=== PATIENT | female | born 1960 | race American Indian/Alaskan Native ===

== ENCOUNTER 2018-03-11 13:02 | Inpatient (IN) | payer MEDICARE ==
[2018-03-11] MEDS ORDERED: NACL 0.9% 1000 ML 1,000 ML ONE ×3 (13:22→17:05)
[2018-03-11] MEDS ORDERED: NACL 0.9% 1000 ML IV ONE ×2 (13:37→16:03)
[2018-03-11] MEDS ORDERED: LEVAQUIN 750MG/150ML 750 MG/150 ML BAG IV SCH (14:00)
[2018-03-11] MEDS: TYLENOL PO PRN (14:00)
[2018-03-11] MEDS ORDERED: PROVENTIL IH ONE (14:18)
--- NOTE | 2018-03-11 14:49 | Emergency Department Report ---
HPI - General Chief Complaint: Fever Time Seen by Provider: 03/11/18 13:51 - HPI HPI: patient sent from custodial for fever, g-tube dependent at baseline ambulates with help per custodial. During nh rounds patient was noticed to be shaking, and had a temp of 105. Patient was sent to er for further evaluation. patient is non verbal at baseline. nh states patient was in her usual state of health yesterday. She has a h/o schizophrenia, htn, and seizure d/o, review of her previous charts showed a normal EEG in september. Patient is unable to contribute to history. in ER initial sats were mid 60s, patient was placed in non dasia 10liters and sats went up to mid 90s. ED Past Medical Hx - Past Medical History Previous Medical History?: Yes - Social History Smoking Status: Unknown if ever smoked ED Review of Systems ROS: Stated complaint: FEVER Other details as noted in HPI Physical Exam - Physical Exam Vital Signs: Vital Signs 03/11/18 03/11/18 13:22 14:00 Temperature 105.7 F H Pulse Rate 143 H Respiratory 45 H Rate Blood Pressure 93/45 O2 Sat by Pulse 66 L Oximetry Physical Exam: GENERAL APPEARANCE: in mild distress HEAD: normocephalic. EYES: PERRL, EOMI. Fundi normal, vision is grossly intact. EARS: External auditory canals and tympanic membranes clear, hearing grossly intact. NOSE: No nasal discharge. THROAT: Oral cavity and pharynx normal. No inflammation, swelling, exudate, or lesions. Teeth and gingiva in good general condition. NECK: Neck supple, non-tender without lymphadenopathy, masses or thyromegaly. CARDIAC: tachycardia, perfused. Capillary refill is less than 2 seconds. No carotid bruits. mild jvd bilat LUNGS: dec breath sounds bilat, dec effort, mild rales. ABDOMEN: Positive bowel sounds. Soft, nondistended, nontender. No guarding or rebound. No masses. g-tube area clean MUSKULOSKELETAL: contracted lower ext. neuro- awake, non verbal, moves all ext. ED Course Vital Signs 03/11/18 03/11/18 13:22 14:00 Temperature 105.7 F H Pulse Rate 143 H Respiratory 45 H Rate Blood Pressure 93/45 O2 Sat by Pulse 66 L Oximetry - Reevaluation(s) Reevaluation #1: 03/11/18 16:17 bp 60s/40s, patient unable to conscent so right ijv central line place emergently for central venous access for large volume ressuscitation and poss pressors. - Central Line Placement Right IJ Consent Obtained: emergent situation Time Out Performed: Yes Patient Placed on Monitor/Pulse Ox: Yes Prep: mask, gown, gloves Central Line Prep: Povidone-Iodine 1% Local Anesthesia Used: Lidocaine 1% Amount of Anesthesia Used (mls): 5 Ultrasound Used for Placement: Yes Central Line Lumen Inserted: triple Bloods Obtained for Lab: Yes Central Line Position: good blood return, all ports aspirated, flus, sutured in place with 2-0 Dressing Applied: Tegaderm Post Procedure X-Ray: tip of catheter in good p Patient Tolerated Procedure: well Complications: none ED Medical Decision Making - Lab Data Result diagrams: 03/11/18 14:20 03/11/18 14:20 - Radiology Data Radiology results: report reviewed - Medical Decision Making 20mg of ketamine given x 3 prior to central line placement for sedation due to an anxious, agitated patient. Critical Care Time: Yes Critical care time in (mins) excluding proc time.: 45 Critical care attestation.: If time is entered above; I have spent that time in minutes in the direct care of this critically ill patient, excluding procedure time. ED Disposition Clinical Impression: DKA, type 2, not at goal, Septic shock Sepsis Qualifiers: Sepsis type: sepsis due to unspecified organism Qualified Code(s): A41.9 - Sepsis, unspecified organism Disposition: OP ADMIT IP TO THIS HOSP Is pt being admited?: Yes Does the pt Need Aspirin: No Condition: Stable Instructions: Diabetic Ketoacidosis (ED) Referrals: PRIMARY CARE, [Primary Care Provider] - 3-5 Days
[2018-03-11 14:51] LABS: Calcium 8.7 mg/dL (8.4-10.2)
--- NOTE | 2018-03-11 14:54 | XRay Report ---
FINAL REPORT PROCEDURE: XR CHEST 1V AP TECHNIQUE: Chest radiograph anteroposterior view. CPT 64327 HISTORY: fever COMPARISON: No prior studies are available for comparison. FINDINGS: The heart is not enlarged. Diffuse patchy nodular alveolar densities are scattered throughout both kendy ngs. There is more focal consolidation in the right upper lobe laterally. The density in the right up per lobe laterally is pleural-based and extends over approximately 10 centimeters x 5.2 centimeters. No effusions are seen. No acute bony abnormalities are identified. IMPRESSION: Extensive diffuse infiltrative process seen throughout both lungs. Given the history of fever this ma y represent pneumonia. Abnormal density visualize right upper lobe pleural based. This may represent more focal consolidation. I cannot exclude a mass or loculated effusion. Follow-up chest x-ray recomm ended to ensure these abnormalities resolve..
[2018-03-11] MEDS ORDERED: MOTRIN PO ONE (15:00)
[2018-03-11 15:01] LABS: Hematocrit 32.2 % (30.3-42.9); Mean Corpuscular HGB Conc 31 % (30-34); Mean Corpuscular Volume 74 fl (79-97); Platelet Count 175 K/mm3 (140-440); Red Blood Count 4.36 M/mm3 (3.65-5.03); Red Cell Distribution Width 14.1 % (13.2-15.2)
[2018-03-11] MEDS ORDERED: HumuLIN R IV ONE (15:01)
[2018-03-11] MEDS ORDERED: KETAMINE HCL IV ONE ×2 (15:23→16:00)
[2018-03-11 15:30] LABS: Bilirubin,Urine NEG (Negative); Blood,Urine MOD (Negative); Color,Urine Yellow (Yellow); Mucus,Urine FEW /HPF
[2018-03-11 15:40] LABS: Basophils % (Manual) 0 % (0.0-1.8); Eosinophils % (Manual) 0 % (0.0-4.3); RBC Morphology Normal; Total Cells Counted 100
[2018-03-11] MEDS ORDERED: NACL 0.9% 1000 ML 1,000 ML IV ONE (15:57)
--- NOTE | 2018-03-11 16:02 | History and Physical Report ---
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 Pt is nonverbal and unable to provide history. Pt history taken from ED staff, EMS, and SNF Staff. As per staff, the patient was found to have shaking chills this morning with a temperature of 105.0. EMS was notified and the patient was found to be in distress. Pt transported to [facility] for further care and evaluation. Pt seen and evaluated in ED and found to have Severe Sepsis secondary to indwelling Mccormick Catheter, Acute Respiratory Failure, Acidosis and Encephalopathy. No further history obtainable. Pt admitted to ICU and placed on sepsis protocol. Past History Past Medical History: hypertension, seizures, other (Contracture, Debility, Schizophrenia) Past Surgical History: Other (PEG placement) Social history: . denies: smoking, alcohol abuse, prescription drug abuse Family history: hypertension Medications and Allergies Allergies Allergy/AdvReac Type Severity Reaction Status Date / Time pineapple Allergy Itching Unverified 07/11/17 08:44 Active Meds: Active Medications Acetaminophen (Tylenol) 650 mg PO Q6H PRN PRN Reason: Pain, Mild (1-3) Last Admin: 03/11/18 14:00 Dose: 650 mg Documented by: Levofloxacin/Dextrose (Levaquin 750mg/150ml) 750 mg in 150 mls @ 100 mls/hr IV Q24HR VIKRAM; Protocol Last Admin: 03/11/18 13:58 Dose: 100 mls/hr Documented by: Sodium Chloride (Nacl 0.9% 1000 Ml) 1,000 mls @ 999 mls/hr IV BOLUS ONE Stop: 03/11/18 16:57 Review of Systems ROS unobtainable: due to mental status Exam - Constitutional Vitals: Temp Pulse Resp BP Pulse Ox 102.3 F H 124 H 31 H 92/60 100 03/11/18 15:08 03/11/18 14:46 03/11/18 14:46 03/11/18 14:46 03/11/18 14:53 General appearance: Present: severe distress - EENT Eyes: Present: miosis - Neck Neck: Present: supple, normal ROM - Respiratory Respiratory effort: labored Respiratory: bilateral: diminished, rhonchi - Cardiovascular Rhythm: other (tachycardia) Heart Sounds: Present: S1 & S2. Absent: rub, click - Extremities Extremities: pulses symmetrical, No edema Peripheral Pulses: abnormal (capillary refill greated than 3.5 seconds) - Abdominal General gastrointestinal: Present: soft, non-tender, non-distended, normal bowel sounds Female genitourinary: Present: normal - Integumentary Integumentary: Present: clear, warm, dry, clammy, decreased turgor - Musculoskeletal Musculoskeletal: generalized weakness - Psychiatric Psychiatric: no appropriate mood/affect, no intact judgment & insight, no memory intact - Neurologic Neurologic: no CNII-XII intact, no gait normal Results - Labs CBC & Chem 7: 03/11/18 14:20 03/11/18 14:20 Labs: Abnormal lab results 03/11/18 03/11/18 03/11/18 Range/Units 14:20 14:20 14:20 Hgb 10.0 L (10.1-14.3) gm/dl MCV 74 L (79-97) fl MCH 23 L (28-32) pg Seg Neuts % (Manual) 89.0 H (40.0-70.0) % Lymphocytes % (Manual) 8.0 L (13.4-35.0) % Lymphocytes # (Manual) 0.4 L (1.2-5.4) K/mm3 POC ABG pO2 (80-105) Sodium 160 H (137-145) mmol/L Chloride 118.4 H (98-107) mmol/L BUN 64 H (7-17) mg/dL Creatinine 1.5 H (0.7-1.2) mg/dL Glucose 592 H* (65-100) mg/dL Lactic Acid 7.20 H* (0.7-2.0) mmol/L AST 60 H (5-40) units/L Total Creatine Kinase 1434 H (30-135) units/L Albumin 2.0 L (3.9-5) g/dL Urine WBC (Auto) (0.0-6.0) /HPF 03/11/18 03/11/18 Range/Units 14:50 15:08 Hgb (10.1-14.3) gm/dl MCV (79-97) fl MCH (28-32) pg Seg Neuts % (Manual) (40.0-70.0) % Lymphocytes % (Manual) (13.4-35.0) % Lymphocytes # (Manual) (1.2-5.4) K/mm3 POC ABG pO2 61 L (80-105) Sodium (137-145) mmol/L Chloride (98-107) mmol/L BUN (7-17) mg/dL Creatinine (0.7-1.2) mg/dL Glucose (65-100) mg/dL Lactic Acid (0.7-2.0) mmol/L AST (5-40) units/L Total Creatine Kinase (30-135) units/L Albumin (3.9-5) g/dL Urine WBC (Auto) 7.0 H (0.0-6.0) /HPF Assessment and Plan - Patient Problems (1) Sepsis Current Visit: Yes Status: Acute Qualifiers: Sepsis type: sepsis due to unspecified organism Qualified Code(s): A41.9 - Sepsis, unspecified organism Plan to address problem: Admit to ICU, IV antibiotic therapy, IVF resuscitation, IV pressors to maintain MAP grater than 60, monitor uop q shift, chest x ray, urinalysis, blood cultures, The high probability of a clinically significant, sudden or life threatening deterioration of the [cardiac, renal, neuro, respiratory] system(s) required my full and direct attention, intervention and personal management. The aggregate critical care time was [65] minutes. This time is in addition to time spent performing reported procedures but includes the following: [x] Data Review and interpretation [x] Patient assessment and monitoring of vital signs [x] Documentation [x] Medication orders and management (2) Respiratory failure Current Visit: Yes Status: Acute Qualifiers: Chronicity: acute Respiratory failure complication: hypoxia Qualified Code(s): J96.01 - Acute respiratory failure with hypoxia Plan to address problem: supplemental oxygen, nebulizer therapy, ABG, NIPPV as clinically indicated, (3) UTI (urinary tract infection) due to urinary indwelling catheter Current Visit: Yes Status: Acute Qualifiers: Indwelling urinary catheter type: indwelling urethral catheter Encounter type: initial encounter Qualified Code(s): T83.511A - Infection and inflammatory reaction due to indwelling urethral catheter, initial encounter; N39.0 - Urinary tract infection, site not specified Plan to address problem: IV antibiotic therapy, urinalysis, (4) Encephalopathy Current Visit: Yes Status: Acute Plan to address problem: CT head, neuro checks, seizure precautions, (5) Acidosis Current Visit: Yes Status: Acute Plan to address problem: Treat sepsis, IVF resuscitation therapy, serial lactic acid level (6) Diabetes mellitus Current Visit: Yes Status: Acute Plan to address problem: AD diet, insulin, accu check (7) DVT prophylaxis Current Visit: Yes Status: Acute Plan to address problem: SCD to BLE while in bed.
[2018-03-11] MEDS ORDERED: SODIUM BICARBONATE FEEDTUBE PRN (16:03)
[2018-03-11] MEDS ORDERED: SIMPLE SYRUP FEEDTUBE PRN ×2 (16:03)
[2018-03-11] MEDS ORDERED: PANCREAZE DR 10,500 UNIT FEEDTUBE PRN (16:03)
[2018-03-11] MEDS ORDERED: SODIUM CHLORIDE FLUSH SYRINGE 10 ML IV PRN (16:03)
[2018-03-11] MEDS ORDERED: LEVOPHED DRIP 4 MG/NS 250 ML 4 MG/250 ML BAG IV ONE (16:33)
[2018-03-11] MEDS: LEVOPHED DRIP 4 MG/NS 250 ML 4 MG/250 ML BAG IV SCH (16:41)
[2018-03-11] MEDS: MAXIPIME/NS 2 GM/100 ML 2 GM/100 ML BAG IV SCH (16:57)
--- NOTE | 2018-03-11 17:06 | XRay Report ---
FINAL REPORT PROCEDURE: Chest. TECHNIQUE: Supine AP view. HISTORY: Central line placement. COMPARISON: Chest done earlier today. FINDINGS: The patient is rotated to the right. The heart size is normal. There is bilateral alveolar opacity in both lungs. This could represent pulmonary edema or an unusual pneumonia. There is some hazy pleural based opacity in the upper portion of the right hemithorax. This could represent loculated fluid or possibly a mass. Follow-up imaging is suggested. There is a right internal jugular venous catheter th at terminates in the SVC. The soft tissues and regional skeleton are unremarkable. IMPRESSION: Satisfactory central line placement. No change in the appearance of the lungs.
--- NOTE | 2018-03-11 17:15 | Consultation ---
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 Pt is nonverbal and unable to provide history. Pt history taken from ED staff, EMS, and SNF Staff. As per staff, the patient was found to have shaking chills this morning with a temperature of 105.0. EMS was notified and the patient was found to be in distress. Pt transported to [facility] for further care and evaluation. Pt seen and evaluated in ED and found to have Severe Sepsis secondary to indwelling Mccormick Catheter, Acute Respiratory Failure, Acidosis and Encephalopathy. No further history obtainable. Pt admitted to ICU and placed on sepsis protocol. I have been consulted for critical care management. Patient was unable to give any history. She was seen and examined in the ED. Currently on high flow oxygen via vapotherm. Vitals, labs, medications, chart and imaging were reviewed. Past History Past Medical History: hypertension, seizures, other (Contracture, Debility, Schizophrenia) Past Surgical History: Other (PEG placement) Social history: . denies: smoking, alcohol abuse, prescription drug abuse Family history: hypertension Medications and Allergies Allergies Allergy/AdvReac Type Severity Reaction Status Date / Time pineapple Allergy Itching Unverified 07/11/17 08:44 Active Meds: Active Medications Acetaminophen (Tylenol) 650 mg PO Q6H PRN PRN Reason: Pain, Mild (1-3) Last Admin: 03/11/18 14:00 Dose: 650 mg Documented by: Lipase/Protease/Amylase (Pancrenati Solis 10,500 Unit) 1 each FEEDTUBE PRN PRN PRN Reason: For Clogged Feeding Tube Cefepime HCl (Maxipime/Ns 2 Gm/100 Ml) 2 gm in 100 mls @ 200 mls/hr IV Q12HR VIKRAM; Protocol Last Admin: 03/11/18 16:57 Dose: 200 mls/hr Documented by: Levofloxacin/Dextrose (Levaquin 750mg/150ml) 750 mg in 150 mls @ 100 mls/hr IV Q48HR VIKRAM; Protocol Simple Syrup (Simple Syrup) 15 ml FEEDTUBE PRN PRN PRN Reason: Hypoglycemia Simple Syrup (Simple Syrup) 30 ml FEEDTUBE PRN PRN PRN Reason: Hypoglycemia Sodium Bicarbonate (Sodium Bicarbonate) 325 mg FEEDTUBE PRN PRN PRN Reason: For Clogged Feeding Tube Sodium Chloride (Sodium Chloride Flush Syringe 10 Ml) 10 ml IV BID VIKRAM Sodium Chloride (Sodium Chloride Flush Syringe 10 Ml) 10 ml IV PRN PRN PRN Reason: LINE FLUSH Physical Examination Vital signs: Vital Signs Pulse Ox 81 L 03/11/18 13:06 General appearance: Present: severe distress Cachexia RIJ CVC, on high flow oxygen via vapotherm Flow of 30L, FIO2 100% HEAD: normocephalic. EYES: PERRL, EOMI. Fundi normal, vision is grossly intact. EARS: External auditory canals and tympanic membranes clear, hearing grossly intact. NOSE: No nasal discharge. THROAT: Oral cavity and pharynx normal. No inflammation, swelling, exudate, or lesions. Teeth and gingiva in good general condition. NECK: Neck supple, non-tender without lymphadenopathy, masses or thyromegaly. CARDIAC: tachycardia, perfused. Capillary refill is less than 2 seconds. No carotid bruits. mild jvd bilat LUNGS: dec breath sounds bilat, dec effort, mild rales. ABDOMEN: Positive bowel sounds. Soft, non distended, nontender. No guarding or rebound. No masses. g-tube area clean MUSKULOSKELETAL: contracted lower ext. neuro- awake, non verbal, moves all ext. Results - Laboratory Findings CBC and BMP: 03/11/18 14:20 03/11/18 19:36 ABG POC ABG pH 7.396 (7.35-7.45) 03/11/18 15:08 POC ABG pCO2 39.4 (35-45) 03/11/18 15:08 POC ABG pO2 61 (80-105) L 03/11/18 15:08 POC ABG HCO3 24.2 03/11/18 15:08 POC ABG Total CO2 25 03/11/18 15:08 POC ABG O2 Sat 91 03/11/18 15:08 Abnormal lab findings: Abnormal Labs 03/11/18 03/11/18 03/11/18 14:20 14:20 14:20 Hgb 10.0 L MCV 74 L MCH 23 L Seg Neuts % (Manual) 89.0 H Lymphocytes % (Manual) 8.0 L Lymphocytes # (Manual) 0.4 L POC ABG pO2 Sodium 160 H Chloride 118.4 H BUN 64 H Creatinine 1.5 H Glucose 592 H* POC Glucose Lactic Acid 7.20 H* AST 60 H Total Creatine Kinase 1434 H Albumin 2.0 L Urine WBC (Auto) 03/11/18 03/11/18 03/11/18 14:50 15:04 15:08 Hgb MCV MCH Seg Neuts % (Manual) Lymphocytes % (Manual) Lymphocytes # (Manual) POC ABG pO2 61 L Sodium Chloride BUN Creatinine Glucose POC Glucose Lactic Acid 6.60 H* AST Total Creatine Kinase Albumin Urine WBC (Auto) 7.0 H 03/11/18 03/11/18 16:38 16:40 Hgb MCV MCH Seg Neuts % (Manual) Lymphocytes % (Manual) Lymphocytes # (Manual) POC ABG pO2 Sodium Chloride BUN Creatinine Glucose POC Glucose 314 H Lactic Acid 5.40 H* AST Total Creatine Kinase Albumin Urine WBC (Auto) - Diagnostic Findings Chest x-ray: image reviewed (Bilateral nodular alveolar infitrates, RIJ CVC) Assessment and Plan Severe sepsis Lactic acidosis Acute hypoxemic respiratory failure Bilateral nodular alveolar infiltrates Severe hypernatremia Cachexia Acute encephalopathy ( toxic, metabolic) High grade fevers/pyrexia Oropharyngeal dysphagia s/p PEG Moderate to severe protein calorie malnutrition -Admit ICU -Severe sepsis protocol -Volume resuscitation-use 1/4Salin in view of severe hypernatremia -Vasopressor support as indicated fro MAP<65, initiate norepinephrine the vasopressin -Continue with high flow oxygen, wean for O2 sats>90% -prn ABG -CTChest to further evaluate nodular densities (with the cachexia, need to ensure that this not malignancy) -Empiric antibiotic therapy, target HAP -Blood, urine and sputum cultures -VTE prophylaxis -Swab for rapid flu -Aspiration precautions -Free water flushes and hypotonic solution for hypernatremia -Correct free water deficit -Serial BMPS, avoid rapid overcorrection, at risk for pontine myelinosis -Nutrition consult for enteric feeding -Monitor fever curve, trend lactic acid levels -Strict intake and output in this critically ill patient CONDITION: CRITICAL CODE STATUS: FULL CODE PROGNOSIS: GUARDED. Discussed care plan with RT, RN and ED staff The high probability of a clinically significant, sudden or life threatening deterioration of the [cardiac, renal, neurology, respiratory] system(s) required my full and direct attention, intervention and personal management. The aggregate critical care time was [65] minutes. This time is in addition to time spent performing reported procedures but includes the following: [x] Data Review and interpretation [x] Patient assessment and monitoring of vital signs [x] Documentation [x] Medication orders and management
[2018-03-11 19:59] LABS: BUN/Creatinine Ratio 50; Blood Urea Nitrogen 45 mg/dL (7-17); Calcium 7.4 mg/dL (8.4-10.2); Hemolysis Index 0
[2018-03-11] MEDS: D5NS 1,000 ML IV SCH (20:38)
[2018-03-12] MEDS: SODIUM CHLORIDE FLUSH SYRINGE 10 ML IV SCH ×3 (01:03→21:47)
--- NOTE | 2018-03-12 03:22 | XRay Report ---
FINAL REPORT PROCEDURE: XR CHEST 1V AP TECHNIQUE: Chest radiograph anteroposterior view. CPT 54229 HISTORY: respiratory failure COMPARISON: 03/11/2018 FINDINGS: Heart: Normal. Mediastinum/Vessels: Normal. Lungs/Pleural space: Bilateral lung opacities consistent infiltrates unchanged.. Bony thorax: No acute osseous abnormality. Life support devices: Right central catheter ends in the SVC. IMPRESSION: Bilateral lung opacities consistent with infiltrates are unchanged..
[2018-03-12] MEDS: D5NS 1,000 ML IV SCH ×3 (04:14→21:04)
[2018-03-12] MEDS: LEVOPHED DRIP 4 MG/NS 250 ML 4 MG/250 ML BAG IV SCH ×3 (08:15→23:08)
[2018-03-12] MEDS ORDERED: SIMPLE SYRUP FEEDTUBE PRN ×3 (09:12→15:59)
[2018-03-12] MEDS ORDERED: SODIUM BICARBONATE FEEDTUBE PRN (09:12)
[2018-03-12] MEDS ORDERED: PANCREAZE DR 10,500 UNIT FEEDTUBE PRN (09:12)
[2018-03-12] MEDS: MAXIPIME/NS 2 GM/100 ML 2 GM/100 ML BAG IV SCH ×2 (09:33→21:45)
--- NOTE | 2018-03-12 11:40 | Progress Note ---
Assessment and Plan Assessment and plan: Sepsis/septic shock. Continue IV antibiotics. Follow-up blood cultures. Cont. pressors to maintain MAP>65. Patient with elevated lactic acid UTI. Follow-up urine cultures. Acute hypoxemic respiratory failure. Continue BiPAP as clinically indicated. Diabetes mellitus type 2. Continue Accu-Cheks and sliding scale insulin. Toxic metabolic encephalopathy. Continue to treat underlying causes. Hypernatremia. Continue free water and D5W IV fluids. Acute renal failure. Etiology likely secondary to vasomotor nephropathy. However, patient may also have acute kidney injury secondary to ATN/sepsis. Check renal ultrasound. History Interval history: No new issues overnight Hospitalist Physical - Constitutional Vitals: Temp Pulse Resp BP Pulse Ox 99.2 F 106 H 48 H 91/48 96 03/12/18 08:00 03/12/18 11:00 03/12/18 11:00 03/12/18 11:00 03/12/18 11:00 General appearance: Present: severe distress - EENT Eyes: Present: PERRL, EOM intact ENT: hearing intact, clear oral mucosa, dentition normal - Neck Neck: Present: supple, normal ROM - Respiratory Respiratory effort: normal Respiratory: bilateral: CTA - Cardiovascular Rhythm: regular Heart Sounds: Present: S1 & S2. Absent: gallop, rub - Extremities Extremities: no ischemia, No edema, Full ROM - Abdominal General gastrointestinal: soft, non-tender, non-distended, normal bowel sounds - Integumentary Integumentary: Present: clear, warm, dry - Neurologic Neurologic: CNII-XII intact, moves all extremities Results - Labs CBC & Chem 7: 03/11/18 14:20 03/11/18 19:36 Labs: Laboratory Last Values WBC 5.5 K/mm3 (4.5-11.0) 03/11/18 14:20 RBC 4.36 M/mm3 (3.65-5.03) 03/11/18 14:20 Hgb 10.0 gm/dl (10.1-14.3) L 03/11/18 14:20 Hct 32.2 % (30.3-42.9) 03/11/18 14:20 MCV 74 fl (79-97) L 03/11/18 14:20 MCH 23 pg (28-32) L 03/11/18 14:20 MCHC 31 % (30-34) 03/11/18 14:20 RDW 14.1 % (13.2-15.2) 03/11/18 14:20 Plt Count 175 K/mm3 (140-440) 03/11/18 14:20 Lymph % (Auto) Metal Grader 03/11/18 14:20 Granite % (Auto) Metal Grader 03/11/18 14:20 Eos % (Auto) Metal Grader 03/11/18 14:20 Baso % (Auto) Metal Grader 03/11/18 14:20 Lymph # Metal Grader 03/11/18 14:20 Granite # Metal Grader 03/11/18 14:20 Eos # Metal Grader 03/11/18 14:20 Baso # Metal Grader 03/11/18 14:20 Add Manual Diff Complete 03/11/18 14:20 Total Counted 100 03/11/18 14:20 Seg Neutrophils % Metal Grader 03/11/18 14:20 Seg Neuts % (Manual) 89.0 % (40.0-70.0) H 03/11/18 14:20 Band Neutrophils % 0 % 03/11/18 14:20 Lymphocytes % (Manual) 8.0 % (13.4-35.0) L 03/11/18 14:20 Reactive Lymphs % (Man) 0 % 03/11/18 14:20 Monocytes % (Manual) 3.0 % (0.0-7.3) 03/11/18 14:20 Eosinophils % (Manual) 0 % (0.0-4.3) 03/11/18 14:20 Basophils % (Manual) 0 % (0.0-1.8) 03/11/18 14:20 Metamyelocytes % 0 % 03/11/18 14:20 Myelocytes % 0 % 03/11/18 14:20 Promyelocytes % 0 % 03/11/18 14:20 Blast Cells % 0 % 03/11/18 14:20 Nucleated RBC % Not Reportable 03/11/18 14:20 Seg Neutrophils # Metal Grader 03/11/18 14:20 Seg Neutrophils # Man 4.9 K/mm3 (1.8-7.7) 03/11/18 14:20 Band Neutrophils # 0.0 K/mm3 03/11/18 14:20 Lymphocytes # (Manual) 0.4 K/mm3 (1.2-5.4) L 03/11/18 14:20 Abs React Lymphs (Man) 0.0 K/mm3 03/11/18 14:20 Monocytes # (Manual) 0.2 K/mm3 (0.0-0.8) 03/11/18 14:20 Eosinophils # (Manual) 0.0 K/mm3 (0.0-0.4) 03/11/18 14:20 Basophils # (Manual) 0.0 K/mm3 (0.0-0.1) 03/11/18 14:20 Metamyelocytes # 0.0 K/mm3 03/11/18 14:20 Myelocytes # 0.0 K/mm3 03/11/18 14:20 Promyelocytes # 0.0 K/mm3 03/11/18 14:20 Blast Cells # 0.0 K/mm3 03/11/18 14:20 WBC Morphology Not Reportable 03/11/18 14:20 Hypersegmented Neuts Not Reportable 03/11/18 14:20 Hyposegmented Neuts Not Reportable 03/11/18 14:20 Hypogranular Neuts Not Reportable 03/11/18 14:20 Smudge Cells Not Reportable 03/11/18 14:20 Toxic Granulation Not Reportable 03/11/18 14:20 Toxic Vacuolation Not Reportable 03/11/18 14:20 Dohle Bodies Not Reportable 03/11/18 14:20 Pelger-Huet Anomaly Not Reportable 03/11/18 14:20 Jimbo Rods Not Reportable 03/11/18 14:20 Platelet Estimate Not Reportable 03/11/18 14:20 Clumped Platelets Not Reportable 03/11/18 14:20 Plt Clumps, EDTA Not Reportable 03/11/18 14:20 Large Platelets Not Reportable 03/11/18 14:20 Giant Platelets Not Reportable 03/11/18 14:20 Platelet Satelliting Not Reportable 03/11/18 14:20 Plt Morphology Comment Not Reportable 03/11/18 14:20 RBC Morphology Normal 03/11/18 14:20 Dimorphic RBCs Not Reportable 03/11/18 14:20 Polychromasia Not Reportable 03/11/18 14:20 Hypochromasia Not Reportable 03/11/18 14:20 Poikilocytosis Not Reportable 03/11/18 14:20 Anisocytosis Not Reportable 03/11/18 14:20 Microcytosis Not Reportable 03/11/18 14:20 Macrocytosis Not Reportable 03/11/18 14:20 Spherocytes Not Reportable 03/11/18 14:20 Pappenheimer Bodies Not Reportable 03/11/18 14:20 Sickle Cells Not Reportable 03/11/18 14:20 Target Cells Not Reportable 03/11/18 14:20 Tear Drop Cells Not Reportable 03/11/18 14:20 Ovalocytes Not Reportable 03/11/18 14:20 Helmet Cells Not Reportable 03/11/18 14:20 Nolen-Harrell Bodies Not Reportable 03/11/18 14:20 Gormania Rings Not Reportable 03/11/18 14:20 [place] Cells Not Reportable 03/11/18 14:20 Bite Cells Not Reportable 03/11/18 14:20 Crenated Cell Not Reportable 03/11/18 14:20 Elliptocytes Not Reportable 03/11/18 14:20 Acanthocytes (Spur) Not Reportable 03/11/18 14:20 Rouleaux Not Reportable 03/11/18 14:20 Hemoglobin C Crystals Not Reportable 03/11/18 14:20 Schistocytes Not Reportable 03/11/18 14:20 Malaria parasites Not Reportable 03/11/18 14:20 Justino Bodies Not Reportable 03/11/18 14:20 Hem Pathologist Commnt No 03/11/18 14:20 APTT 28.2 Sec. (24.2-36.6) 03/11/18 14:44 POC ABG pH 7.384 (7.35-7.45) 03/12/18 08:22 POC ABG pCO2 31.8 (35-45) L 03/12/18 08:22 POC ABG pO2 48 (80-105) L 03/12/18 08:22 POC ABG HCO3 19.0 03/12/18 08:22 POC ABG Total CO2 20 03/12/18 08:22 POC ABG O2 Sat 83 03/12/18 08:22 POC ABG Base Excess -6 03/12/18 08:22 FiO2 100 % 03/12/18 08:22 Sodium 165 mmol/L (137-145) H* 03/11/18 19:36 Potassium 3.1 mmol/L (3.6-5.0) L 03/11/18 19:36 Chloride 128.9 mmol/L (98-107) H 03/11/18 19:36 Carbon Dioxide 22 mmol/L (22-30) 03/11/18 19:36 Anion Gap 16 mmol/L 03/11/18 19:36 BUN 45 mg/dL (7-17) H 03/11/18 19:36 Creatinine 0.9 mg/dL (0.7-1.2) 03/11/18 19:36 Estimated GFR > 60 ml/min 03/11/18 19:36 BUN/Creatinine Ratio 50 % 03/11/18 19:36 Glucose 230 mg/dL (65-100) H 03/11/18 19:36 POC Glucose 303 (70-105) H 03/12/18 05:15 Lactic Acid 2.40 mmol/L (0.7-2.0) H* 03/12/18 03:38 Calcium 7.4 mg/dL (8.4-10.2) L 03/11/18 19:36 Total Bilirubin 0.50 mg/dL (0.1-1.2) 03/11/18 14:20 AST 60 units/L (5-40) H 03/11/18 14:20 ALT 53 units/L (7-56) 03/11/18 14:20 Alkaline Phosphatase 75 units/L (35-129) 03/11/18 14:20 Total Creatine Kinase 1434 units/L (30-135) H 03/11/18 14:20 Total Protein 7.3 g/dL (6.3-8.2) 03/11/18 14:20 Albumin 2.0 g/dL (3.9-5) L 03/11/18 14:20 Albumin/Globulin Ratio 0.4 % 03/11/18 14:20 Urine Color Yellow (Yellow) 03/11/18 14:50 Urine Turbidity Slightly-cloudy (Clear) 03/11/18 14:50 Urine pH 5.0 (5.0-7.0) 03/11/18 14:50 Ur Specific [place] 1.020 (1.003-1.030) 03/11/18 14:50 Urine Protein 30 mg/dl mg/dL (Negative) 03/11/18 14:50 Urine Glucose (UA) >=500 mg/dL (Negative) 03/11/18 14:50 Urine Ketones Neg mg/dL (Negative) 03/11/18 14:50 Urine Blood Mod (Negative) 03/11/18 14:50 Urine Nitrite Neg (Negative) 03/11/18 14:50 Urine Bilirubin Neg (Negative) 03/11/18 14:50 Urine Urobilinogen 4.0 mg/dL (<2.0) 03/11/18 14:50 Ur Leukocyte Esterase Neg (Negative) 03/11/18 14:50 Urine WBC (Auto) 7.0 /HPF (0.0-6.0) H 03/11/18 14:50 Urine RBC (Auto) 3.0 /HPF (0.0-6.0) 03/11/18 14:50 U Epithel Cells (Auto) < 1.0 /HPF (0-13.0) 03/11/18 14:50 Urine Mucus Few /HPF 03/11/18 14:50 Urine Yeast (Budding) 1+ /HPF 03/11/18 14:50 Blood Type O POSITIVE 03/11/18 14:47 Antibody Screen Negative 03/11/18 14:47 Nutrition/Malnutrition Assess - Dietary Evaluation Nutrition/Malnutrition Findings: Nutrition Notes Start: 03/12/18 09:05 Freq: Status: Active Protocol: Document 03/12/18 09:07 OL (Rec: 03/12/18 09:11 OL [id number]) Nutrition Notes Need for Assessment generated from: MD Order Initial or Follow up Assessment Current Diagnoses Diabetes Sepsis Respiratory Failure Other Pertinent Diagnosis encephalopathy, UTI Current Diet NPO Labs/Tests Na 165 K 3.1 glucose 235 BUN 45 Medications Reviewed Height 5 ft 5 in Weight 46 kg [place] Body Weight (lbs) 125.0 BMI 16.9 Subjective/Other Information RD consult for TF, screen for skin risk. Isiah 15. Pt. admitted from OR Burn Absent Trauma Absent #1 Nutrition Diagnoses Inadequate oral intake Etiology NPO status As Evidenced by Signs and Symptoms TF consult Is patient on ventilator? No Is Patient Ambulatory and/or Out of Bed No REE-([place]-confined to bed) 1254.072 Kcal/Kg value to use for calculation 35 Approximate Energy Requirements Using 1610 kcal/Kg Calculation Used for Recommendations Kcal/kg Additional Notes protein (1.2-2g/kg): 55-92g/ day fluid: 1mL/kcal or per MD Nutrition Intervention Change Diet Order: TF Nutrition Support: Glucerna 1.2 at 50mL/hr. 200mL flush q4h Kcal 1,440 Protein (gm) 72 Fluid (mL) 966 Goal #1 TF to meet 100% nutrient needs Anticipated Discharge Needs: Unable to determine at this time. Follow-Up By: 03/14/18 Additional Comments f/u: new TF; reassess flush
--- NOTE | 2018-03-12 12:06 | Progress Note ---
Assessment and Plan Acute Hypoxemic Respiratory Failure Severe Sepsis with Shock ARDS UTI (urinary tract infection) due to urinary indwelling catheter Encephalopathy Mixed Acidosis Diabetes mellitus DVT prophylaxis - Intubate - initiate VAP bundle - continue Severe sepsis protocol - continue hypotonic volume resuscitation acutely - continue Vasopressor support as indicated for target MAP > 65 mmHg - ABG post intubation - follow CT chest post intubation - continue empiric antibiotic therapy, target HAP - add Vancomycin - follow Blood, urine and sputum cultures - GI & VTE prophylaxis - follow rapid flu result - Aspiration precautions - continue Free water flushes and hypotonic solution for hypernatremia - Serial BMP's acutely avoiding rapid overcorrection as at risk for pontine myelinosis - Nutrition consult for enteric feeding - Monitor fever curve, - get CRP and trend with lactic acid levels to aid clinical decision making - Strict intake and output in this critically ill patient - continue other care per attending / other consultants The high probability of a clinically significant, sudden or life threatening deterioration of the [cardiac, renal, neuro, respiratory] system(s) required my full and direct attention, intervention and personal management. The aggregate critical care time was [35] minutes. This time is in addition to time spent performing reported procedures but includes the following: [x] Data Review and interpretation [x] Patient assessment and monitoring of vital signs [x] Documentation [x] Medication orders and management Subjective Date of service: 03/12/18 Principal diagnosis: Acute Hypoxemic Respiratory Failure; Severe Sepsis with Shock; ARDS; UTI Interval history: Patient is seen today for: Acute Hypoxemic Respiratory Failure; Severe Sepsis with Shock; ARDS; UTI; Acute Encephalopathy Seen and examined at bedside; 24hour events reviewed; nursing and respiratory care staff consulted; no adverse overnight events reported to me; remains on BIPAP but with increase work of breathing; remains hypoxemic; AMS is persistent; remains on vasopressors; no emesis or overt aspiration Objective Vital Signs - 12hr 03/12/18 03/12/18 03/12/18 00:10 00:20 00:30 Temperature Pulse Rate 99 H 101 H 100 H Pulse Rate [ From Monitor] Respiratory 33 H 35 H 19 Rate Blood Pressure 97/61 96/48 96/48 O2 Sat by Pulse 88 87 82 L Oximetry 03/12/18 03/12/18 03/12/18 00:40 00:50 01:00 Temperature Pulse Rate 103 H 101 H 102 H Pulse Rate [ From Monitor] Respiratory 38 H 22 34 H Rate Blood Pressure 96/59 95/59 103/58 O2 Sat by Pulse 71 L 88 Oximetry 03/12/18 03/12/18 03/12/18 01:10 01:20 01:30 Temperature Pulse Rate 102 H 100 H 101 H Pulse Rate [ From Monitor] Respiratory 40 H 39 H 35 H Rate Blood Pressure 95/59 80/60 94/61 O2 Sat by Pulse 92 95 92 Oximetry 03/12/18 03/12/18 03/12/18 01:40 01:50 02:00 Temperature Pulse Rate 97 H 98 H 102 H Pulse Rate [ From Monitor] Respiratory 34 H 41 H 41 H Rate Blood Pressure 94/61 101/57 94/45 O2 Sat by Pulse 92 93 93 Oximetry 03/12/18 03/12/18 03/12/18 02:10 02:20 02:30 Temperature Pulse Rate 95 H 97 H 97 H Pulse Rate [ From Monitor] Respiratory 36 H 35 H 18 Rate Blood Pressure 94/45 96/55 105/65 O2 Sat by Pulse 91 96 100 Oximetry 03/12/18 03/12/18 03/12/18 02:40 02:50 03:00 Temperature Pulse Rate 97 H 98 H 98 H Pulse Rate [ From Monitor] Respiratory 40 H 35 H 34 H Rate Blood Pressure 105/65 107/59 105/64 O2 Sat by Pulse 99 96 83 L Oximetry 03/12/18 03/12/18 03/12/18 03:10 03:20 03:30 Temperature Pulse Rate 97 H 98 H 97 H Pulse Rate [ From Monitor] Respiratory 38 H 38 H 40 H Rate Blood Pressure 105/64 106/64 106/64 O2 Sat by Pulse 94 88 98 Oximetry 03/12/18 03/12/18 03/12/18 03:40 03:50 04:00 Temperature 99.0 F Pulse Rate 100 H 100 H 100 H Pulse Rate [ 102 H From Monitor] Respiratory 40 H 29 H 40 H Rate Blood Pressure 105/64 94/64 100/60 O2 Sat by Pulse 98 98 99 Oximetry 03/12/18 03/12/18 03/12/18 04:10 04:20 04:30 Temperature Pulse Rate 101 H 103 H 104 H Pulse Rate [ From Monitor] Respiratory 43 H 37 H 18 Rate Blood Pressure 100/60 110/64 107/66 O2 Sat by Pulse 88 100 100 Oximetry 03/12/18 03/12/18 03/12/18 04:40 04:50 05:00 Temperature Pulse Rate 106 H 104 H 104 H Pulse Rate [ From Monitor] Respiratory 21 27 H 43 H Rate Blood Pressure 107/66 133/106 133/106 O2 Sat by Pulse 80 L 99 Oximetry 03/12/18 03/12/18 03/12/18 05:10 05:20 05:30 Temperature Pulse Rate 104 H 101 H 101 H Pulse Rate [ From Monitor] Respiratory 34 H 42 H 34 H Rate Blood Pressure 85/59 95/54 94/65 O2 Sat by Pulse 79 L 93 99 Oximetry 03/12/18 03/12/18 03/12/18 05:40 05:50 06:00 Temperature Pulse Rate 102 H 104 H 105 H Pulse Rate [ From Monitor] Respiratory 45 H 45 H 37 H Rate Blood Pressure 94/65 89/70 93/74 O2 Sat by Pulse 96 98 Oximetry 03/12/18 03/12/18 03/12/18 06:10 06:20 06:30 Temperature Pulse Rate 104 H 103 H 102 H Pulse Rate [ From Monitor] Respiratory 44 H 39 H 44 H Rate Blood Pressure 93/74 96/60 90/58 O2 Sat by Pulse 99 93 99 Oximetry 03/12/18 03/12/18 03/12/18 06:40 06:50 07:00 Temperature Pulse Rate 101 H 102 H 104 H Pulse Rate [ From Monitor] Respiratory 42 H 45 H 49 H Rate Blood Pressure 90/58 91/56 96/64 O2 Sat by Pulse 92 99 97 Oximetry 03/12/18 03/12/18 03/12/18 07:10 07:20 07:30 Temperature Pulse Rate 103 H 103 H 102 H Pulse Rate [ From Monitor] Respiratory 49 H 48 H 48 H Rate Blood Pressure 96/64 87/60 94/56 O2 Sat by Pulse 100 95 96 Oximetry 03/12/18 03/12/18 03/12/18 07:40 07:50 08:00 Temperature 99.2 F Pulse Rate 101 H 103 H 105 H Pulse Rate [ 105 H From Monitor] Respiratory 41 H 43 H 49 H Rate Blood Pressure 96/64 87/56 77/56 O2 Sat by Pulse 98 98 98 Oximetry 03/12/18 03/12/18 03/12/18 08:10 08:20 08:30 Temperature Pulse Rate 104 H 105 H 103 H Pulse Rate [ From Monitor] Respiratory 47 H 42 H 48 H Rate Blood Pressure 77/56 93/54 102/64 O2 Sat by Pulse 97 96 Oximetry 03/12/18 03/12/18 03/12/18 08:40 08:50 09:00 Temperature Pulse Rate 105 H 105 H 105 H Pulse Rate [ From Monitor] Respiratory 41 H 46 H 36 H Rate Blood Pressure 102/64 98/57 95/54 O2 Sat by Pulse 99 96 79 L Oximetry 03/12/18 03/12/18 03/12/18 09:01 09:10 09:20 Temperature Pulse Rate 105 H 105 H 105 H Pulse Rate [ From Monitor] Respiratory 46 H 42 H 44 H Rate Blood Pressure 98/57 95/54 83/55 O2 Sat by Pulse 96 96 96 Oximetry 03/12/18 03/12/18 03/12/18 09:30 09:40 09:50 Temperature Pulse Rate 107 H 108 H 112 H Pulse Rate [ From Monitor] Respiratory 47 H 44 H 46 H Rate Blood Pressure 93/63 93/63 97/60 O2 Sat by Pulse 100 100 96 Oximetry 03/12/18 03/12/18 03/12/18 10:00 10:10 10:20 Temperature Pulse Rate 112 H 110 H 110 H Pulse Rate [ From Monitor] Respiratory 43 H 47 H 44 H Rate Blood Pressure 96/59 96/59 96/59 O2 Sat by Pulse 96 100 97 Oximetry 03/12/18 03/12/18 03/12/18 10:30 10:40 10:50 Temperature Pulse Rate 107 H 107 H 106 H Pulse Rate [ From Monitor] Respiratory 45 H 46 H 45 H Rate Blood Pressure 96/59 100/42 97/57 O2 Sat by Pulse 98 96 97 Oximetry 03/12/18 11:00 Temperature Pulse Rate 106 H Pulse Rate [ From Monitor] Respiratory 48 H Rate Blood Pressure 91/48 O2 Sat by Pulse 96 Oximetry Constitutional: appears uncomfortable, other (middle aged chronically ill looking AAF; normocephalic with moderately increased rsepiratory effort on BIPAP) Eyes: non-icteric ENT: oropharynx moist Neck: supple, no lymphadenopathy, no JVD, other (no thyromegaly) Effort: very labored Ascultation: Bilateral: diminished breath sounds, rhonchi Percussion: Bilateral: not dull Cardiovascular: regular rate and rhythm Gastrointestinal: normoactive bowel sounds, soft, non-tender, non-distended Integumentary: other (poor turgor) Extremities: no cyanosis, no edema, pulses normal, no ischemia or petechiae Neurologic: unable to assess Psychiatric: other (encephalopathic) CBC and BMP: 03/13/18 03:00 03/13/18 03:00 ABG, PT/INR, D-dimer: ABG POC ABG pH 7.384 (7.35-7.45) 03/12/18 08:22 POC ABG pCO2 31.8 (35-45) L 03/12/18 08:22 POC ABG pO2 48 (80-105) L 03/12/18 08:22 POC ABG HCO3 19.0 03/12/18 08:22 POC ABG Total CO2 20 03/12/18 08:22 POC ABG O2 Sat 83 03/12/18 08:22 Abnormal lab findings: Abnormal Labs 03/11/18 03/11/18 03/11/18 14:20 14:20 14:20 Hgb 10.0 L MCV 74 L MCH 23 L Seg Neuts % (Manual) 89.0 H Lymphocytes % (Manual) 8.0 L Lymphocytes # (Manual) 0.4 L POC ABG pH POC ABG pCO2 POC ABG pO2 Sodium 160 H Potassium Chloride 118.4 H BUN 64 H Creatinine 1.5 H Glucose 592 H* POC Glucose Lactic Acid 7.20 H* Calcium AST 60 H Total Creatine Kinase 1434 H Albumin 2.0 L Urine WBC (Auto) 03/11/18 03/11/18 03/11/18 14:50 15:04 15:08 Hgb MCV MCH Seg Neuts % (Manual) Lymphocytes % (Manual) Lymphocytes # (Manual) POC ABG pH POC ABG pCO2 POC ABG pO2 61 L Sodium Potassium Chloride BUN Creatinine Glucose POC Glucose Lactic Acid 6.60 H* Calcium AST Total Creatine Kinase Albumin Urine WBC (Auto) 7.0 H 03/11/18 03/11/18 03/11/18 16:38 16:40 19:36 Hgb MCV MCH Seg Neuts % (Manual) Lymphocytes % (Manual) Lymphocytes # (Manual) POC ABG pH POC ABG pCO2 POC ABG pO2 Sodium Potassium Chloride BUN Creatinine Glucose POC Glucose 314 H Lactic Acid 5.40 H* 3.70 H* Calcium AST Total Creatine Kinase Albumin Urine WBC (Auto) 03/11/18 03/11/18 03/11/18 19:36 19:36 20:33 Hgb MCV MCH Seg Neuts % (Manual) Lymphocytes % (Manual) Lymphocytes # (Manual) POC ABG pH POC ABG pCO2 POC ABG pO2 Sodium 165 H* Potassium 3.1 L Chloride 128.9 H BUN 45 H Creatinine Glucose 230 H POC Glucose Lactic Acid 3.70 H* 4.00 H* Calcium 7.4 L AST Total Creatine Kinase Albumin Urine WBC (Auto) 03/11/18 03/11/18 03/11/18 20:53 23:37 23:42 Hgb MCV MCH Seg Neuts % (Manual) Lymphocytes % (Manual) Lymphocytes # (Manual) POC ABG pH 7.298 L POC ABG pCO2 POC ABG pO2 65 L Sodium Potassium Chloride BUN Creatinine Glucose POC Glucose 235 H Lactic Acid 2.30 H* Calcium AST Total Creatine Kinase Albumin Urine WBC (Auto) 03/12/18 03/12/18 03/12/18 01:44 03:38 05:15 Hgb MCV MCH Seg Neuts % (Manual) Lymphocytes % (Manual) Lymphocytes # (Manual) POC ABG pH POC ABG pCO2 POC ABG pO2 Sodium Potassium Chloride BUN Creatinine Glucose POC Glucose 303 H Lactic Acid 2.30 H* 2.40 H* Calcium AST Total Creatine Kinase Albumin Urine WBC (Auto) 03/12/18 03/12/18 08:22 11:14 Hgb MCV MCH Seg Neuts % (Manual) Lymphocytes % (Manual) Lymphocytes # (Manual) POC ABG pH POC ABG pCO2 31.8 L POC ABG pO2 48 L Sodium Potassium Chloride BUN Creatinine Glucose POC Glucose 209 H Lactic Acid Calcium AST Total Creatine Kinase Albumin Urine WBC (Auto) Chest x-ray: image reviewed (bilateral pulmonary infiltrates R>L +/- layering right pleural effusion) Allied health notes reviewed: nursing
[2018-03-12] MEDS ORDERED: SUBLIMAZE IV PRN (17:02)
[2018-03-12] MEDS ORDERED: VASELINE LIP THERAPY TP PRN (17:02)
[2018-03-12] MEDS ORDERED: ARTIFICIAL TEARS OPHTH OINT OU PRN (17:02)
[2018-03-12] MEDS: DIPRIVAN 10 MG/ML 1,000 MG/100 ML BOTTLE IV SCH (17:30)
[2018-03-12] MEDS ORDERED: QUELICIN IV ONE (17:56)
[2018-03-12] MEDS ORDERED: VERSED IV NR (18:00)
--- NOTE | 2018-03-12 18:05 | Event Note ---
Date: 03/12/18 I was asked to up to the ICU to intubate this patient as the patient was displaying hypoxia and worsening respiratory status. The ICU attending was not currently in the hospital and they were having difficulty contacting anesthesia to do the intubation. The patient is admitted to the hospital for sepsis. The patient is encephalopathic. When I arrived I saw that the patient is unresponsive but does have a pulse. She is on a Versed and propofol drips. The patient had been having some transient hypoxia that apparently became more consistent and the patient did have some tachypnea. Respiratory therapy was at bedside giving the patient bag valve ventilation and had previously attempted intubating the patient under the instructions of the ICU boston cutter, but was unsuccessful secondary to an anterior airway. The patient still had a gag reflex and therefore I gave the order to give 100 mg of succinylcholine. While the medication was given we continued to give bag valve ventilation. Once the patient was appropriately paralyzed, the glide scope was used to visualize the vocal cords. A 7.5 endotracheal tube was placed through the vocal cords to about 24 cm at the lips. The balloon was filled with about 7-10 mL of air. There was condensation within the tube. There was good color change capnography. Bilateral breath sounds were heard. No obvious complications were seen from this procedure. The ICU attending will be contacted for vent orders and postintubation x-ray.
[2018-03-12] MEDS ORDERED: QUELICIN ONE (18:20)
--- NOTE | 2018-03-12 18:44 | XRay Report ---
FINAL REPORT EXAM: XR CHEST 1V AP HISTORY: ETT placement TECHNIQUE: AP portable view of the chest. PRIORS: 03/11/2018 FINDINGS: There is an endotracheal tube in place which appears adequately positioned in the mid trachea. There is a right-sided central venous catheter with the tip in the superior vena cava. The cardiomediastina l silhouette appears normal. There are extensive bilateral airspace infiltrates greater on the right than left, progressed from the previous exam. The bones and soft tissues are unremarkable. IMPRESSION: Endotracheal tube appears adequately position. Bilateral airspace infiltrates have progressed since the previous exam and are consistent with pneumo mabel or edema
[2018-03-12] MEDS: fentaNYL DRIP Premix 2,000 MCG/100 ML BAG IV SCH (19:00)
[2018-03-12] MEDS ORDERED: NACL 0.9% 1000 ML 1,000 ML ONE (20:18)
[2018-03-12] MEDS: Vasostrict 20 UNIT in NACL 0.9% 100 ML IV SCH (20:55)
--- NOTE | 2018-03-12 21:26 | Ultrasound Report ---
FINAL REPORT EXAM: US RENAL BILAT HISTORY: ARF TECHNIQUE: Real-time sonography was performed of the kidneys and bladder and images are submitted fo r interpretation. PRIORS: None. FINDINGS: The kidneys appear normal in size, shape and echogenicity. The right kidney measures 10.7 x 4.2 x 6.3 cm and the left measures 12.4 x 5.8 x 6.5 cm. There is no hydronephrosis. There are no focal renal l esions. The bladder appears normal. IMPRESSION: Normal kidney and bladder ultrasound.
[2018-03-13] MEDS: DIPRIVAN 10 MG/ML 1,000 MG/100 ML BOTTLE IV SCH ×2 (00:52→16:26)
[2018-03-13 03:48] LABS: Hematocrit 24.8 % (30.3-42.9); Hemoglobin 7.7 gm/dl (10.1-14.3); Mean Corpuscular HGB Conc 31 % (30-34); Mean Corpuscular Volume 74 fl (79-97); Platelet Count 139 K/mm3 (140-440); Red Blood Count 3.35 M/mm3 (3.65-5.03); Red Cell Distribution Width 14.5 % (13.2-15.2)
[2018-03-13 04:02] LABS: BUN/Creatinine Ratio 26; Blood Urea Nitrogen 18 mg/dL (7-17); Calcium 7.4 mg/dL (8.4-10.2); Hemolysis Index 14
[2018-03-13] MEDS ORDERED: POTASSIUM CHLORIDE FEEDTUBE ONE ×2 (04:30→08:30)
[2018-03-13] MEDS: POTASSIUM CHLORIDE FEEDTUBE SCH ×2 (04:32→09:29)
[2018-03-13 04:48] LABS: Anisocytosis 1+; Band Neutrophils # (Manual) 0.8 K/mm3; Basophils % (Manual) 0 % (0.0-1.8); Eosinophils % (Manual) 0 % (0.0-4.3); Hypochromasia 1+; Monocytes % (Manual) 0 % (0.0-7.3); Total Cells Counted 100
[2018-03-13 04:49] LABS: Platelet Estimate Cons; Target Cells Few
[2018-03-13 04:50] LABS: Large Platelets Few; Toxic Vacuolation Rare
[2018-03-13 04:51] LABS: Dohle Bodies Rare
[2018-03-13] MEDS: D5NS 1,000 ML IV SCH (05:32)
[2018-03-13] MEDS: Vasostrict 20 UNIT in NACL 0.9% 100 ML IV SCH ×2 (06:01→16:26)
[2018-03-13] MEDS: LEVOPHED DRIP 4 MG/NS 250 ML 4 MG/250 ML BAG IV SCH ×4 (07:08→22:32)
[2018-03-13] MEDS: LEVAQUIN 750MG/150ML 750 MG/150 ML BAG IV SCH (09:28)
[2018-03-13] MEDS: TYLENOL PO PRN ×2 (09:30→22:37)
[2018-03-13] MEDS: MAXIPIME/NS 2 GM/100 ML 2 GM/100 ML BAG IV SCH ×2 (09:32→22:28)
--- NOTE | 2018-03-13 12:02 | Progress Note ---
Assessment and Plan Acute Hypoxemic Respiratory Failure Severe Sepsis with Shock ARDS UTI (urinary tract infection) due to urinary indwelling catheter Encephalopathy Mixed Acidosis Diabetes mellitus DVT prophylaxis - continue to wean oxygen to keep sats > 90% - keep Peep at 8 cmH2O - LTVV strategies - VAP bundle addressed - replace potassium aggressively - continue Severe sepsis protocol - continue Vasopressor support as indicated for target MAP > 65 mmHg - daily ABG's acutely - CT chest demonstrates dense bibasilar consolidation with cavitation vs infected bullae in LLL in particular - continue empiric antibiotic therapy, target HAP - ID consulted and romero defer to them re: AB's - follow Blood, urine and sputum cultures - GI & VTE prophylaxis - Aspiration precautions - continue Free water flushes and hypotonic solution for hypernatremia - Serial BMP's acutely avoiding rapid overcorrection as at risk for pontine myelinosis - Nutrition consult for enteric feeding - Monitor fever curve, - get CRP and trend with lactic acid levels to aid clinical decision making - Strict intake and output in this critically ill patient - continue other care per attending / other consultants The high probability of a clinically significant, sudden or life threatening deterioration of the [cardiac, renal, neuro, respiratory] system(s) required my full and direct attention, intervention and personal management. The aggregate critical care time was [36] minutes. This time is in addition to time spent performing reported procedures but includes the following: [x] Data Review and interpretation [x] Patient assessment and monitoring of vital signs [x] Documentation [x] Medication orders and management Subjective Date of service: 03/13/18 Principal diagnosis: Acute Hypoxemic Respiratory Failure; Severe Sepsis with Shock; ARDS; UTI Interval history: Patient is seen today for: Acute Hypoxemic Respiratory Failure; Severe Sepsis with Shock; ARDS; UTI; Acute Encephalopathy Seen and examined at bedside; 24hour events reviewed; nursing and respiratory care staff consulted; no adverse overnight events reported to me; remains on MVS; no emesis or overt aspiration; opening eyes spontaneously; no seizures Objective Vital Signs - 12hr 03/13/18 03/13/18 03/13/18 00:10 00:12 00:20 Temperature Pulse Rate 96 H 94 H 92 H Pulse Rate [ From Monitor] Respiratory 25 H 30 H 25 H Rate Blood Pressure 91/58 91/58 96/61 O2 Sat by Pulse 98 98 98 Oximetry 03/13/18 03/13/18 03/13/18 00:30 00:40 00:50 Temperature Pulse Rate 89 89 90 Pulse Rate [ From Monitor] Respiratory 26 H 25 H 25 H Rate Blood Pressure 93/58 93/58 95/58 O2 Sat by Pulse 98 98 97 Oximetry 03/13/18 03/13/18 03/13/18 01:00 01:10 01:20 Temperature Pulse Rate 89 88 91 H Pulse Rate [ From Monitor] Respiratory 25 H 26 H 26 H Rate Blood Pressure 91/59 91/59 99/59 O2 Sat by Pulse 98 97 99 Oximetry 03/13/18 03/13/18 03/13/18 01:30 01:40 01:50 Temperature Pulse Rate 90 89 89 Pulse Rate [ From Monitor] Respiratory 26 H 26 H 24 Rate Blood Pressure 104/60 104/60 100/61 O2 Sat by Pulse 99 99 99 Oximetry 03/13/18 03/13/18 03/13/18 02:00 02:10 02:20 Temperature Pulse Rate 89 92 H 91 H Pulse Rate [ From Monitor] Respiratory 26 H 26 H 25 H Rate Blood Pressure 105/61 105/61 94/59 O2 Sat by Pulse 98 98 98 Oximetry 03/13/18 03/13/18 03/13/18 02:30 02:40 02:50 Temperature Pulse Rate 91 H 92 H 93 H Pulse Rate [ From Monitor] Respiratory 25 H 25 H 25 H Rate Blood Pressure 97/62 97/62 97/62 O2 Sat by Pulse 98 98 98 Oximetry 03/13/18 03/13/18 03/13/18 03:00 03:10 03:20 Temperature Pulse Rate 91 H 91 H 91 H Pulse Rate [ From Monitor] Respiratory 24 25 H 26 H Rate Blood Pressure 94/60 94/60 102/59 O2 Sat by Pulse 99 98 97 Oximetry 03/13/18 03/13/18 03/13/18 03:30 03:40 03:50 Temperature 100.6 F H Pulse Rate 92 H 95 H 90 Pulse Rate [ From Monitor] Respiratory 25 H 22 31 H Rate Blood Pressure 107/61 107/61 92/53 O2 Sat by Pulse 98 96 93 Oximetry 03/13/18 03/13/18 03/13/18 04:00 04:10 04:20 Temperature Pulse Rate 90 91 H 89 Pulse Rate [ 92 H From Monitor] Respiratory 28 H 31 H 27 H Rate Blood Pressure 84/53 84/53 94/57 O2 Sat by Pulse 93 93 98 Oximetry 03/13/18 03/13/18 03/13/18 04:25 04:30 04:40 Temperature Pulse Rate 89 89 93 H Pulse Rate [ From Monitor] Respiratory 25 H 29 H Rate Blood Pressure 100/55 100/55 O2 Sat by Pulse 98 99 98 Oximetry 03/13/18 03/13/18 03/13/18 04:50 05:00 05:10 Temperature Pulse Rate 88 90 91 H Pulse Rate [ From Monitor] Respiratory 28 H 27 H 25 H Rate Blood Pressure 90/54 92/55 92/55 O2 Sat by Pulse 97 99 99 Oximetry 03/13/18 03/13/18 03/13/18 05:20 05:30 05:40 Temperature Pulse Rate 91 H 86 86 Pulse Rate [ From Monitor] Respiratory 26 H 25 H 27 H Rate Blood Pressure 99/56 93/55 93/55 O2 Sat by Pulse 99 99 100 Oximetry 03/13/18 03/13/18 03/13/18 05:50 06:00 06:10 Temperature Pulse Rate 87 90 88 Pulse Rate [ From Monitor] Respiratory 24 27 H 26 H Rate Blood Pressure 91/56 99/64 99/64 O2 Sat by Pulse 100 100 99 Oximetry 03/13/18 03/13/18 03/13/18 06:20 06:30 06:40 Temperature Pulse Rate 87 84 89 Pulse Rate [ From Monitor] Respiratory 25 H 26 H 25 H Rate Blood Pressure 98/56 95/55 99/64 O2 Sat by Pulse 99 99 99 Oximetry 03/13/18 03/13/18 03/13/18 06:50 07:00 07:10 Temperature Pulse Rate 86 86 81 Pulse Rate [ From Monitor] Respiratory 28 H 28 H 29 H Rate Blood Pressure 92/56 97/58 97/58 O2 Sat by Pulse 100 100 99 Oximetry 03/13/18 03/13/18 03/13/18 07:20 07:30 07:40 Temperature Pulse Rate 82 81 83 Pulse Rate [ From Monitor] Respiratory 28 H 29 H 30 H Rate Blood Pressure 99/59 109/60 116/63 O2 Sat by Pulse 100 100 100 Oximetry 03/13/18 03/13/18 03/13/18 07:50 07:54 08:00 Temperature 99.3 F 99.3 F Pulse Rate 83 84 Pulse Rate [ From Monitor] Respiratory 26 H 28 H Rate Blood Pressure 116/63 123/66 O2 Sat by Pulse 100 100 Oximetry 03/13/18 03/13/18 03/13/18 08:10 08:20 08:30 Temperature Pulse Rate 83 82 81 Pulse Rate [ From Monitor] Respiratory 28 H 30 H 29 H Rate Blood Pressure 123/66 107/66 112/64 O2 Sat by Pulse 100 100 100 Oximetry 03/13/18 03/13/18 03/13/18 08:40 08:50 09:00 Temperature Pulse Rate 86 89 86 Pulse Rate [ From Monitor] Respiratory 28 H 29 H 28 H Rate Blood Pressure 123/66 96/54 92/49 O2 Sat by Pulse 100 97 97 Oximetry 03/13/18 03/13/18 03/13/18 09:10 09:20 09:30 Temperature Pulse Rate 86 84 84 Pulse Rate [ From Monitor] Respiratory 29 H 28 H 26 H Rate Blood Pressure 92/49 99/53 97/53 O2 Sat by Pulse 97 98 98 Oximetry 03/13/18 03/13/18 03/13/18 09:40 09:50 10:00 Temperature Pulse Rate 83 84 83 Pulse Rate [ From Monitor] Respiratory 27 H 30 H 28 H Rate Blood Pressure 97/53 99/57 99/55 O2 Sat by Pulse 97 99 99 Oximetry 03/13/18 03/13/18 03/13/18 10:10 10:20 10:30 Temperature Pulse Rate 87 91 H 95 H Pulse Rate [ From Monitor] Respiratory 29 H 28 H 29 H Rate Blood Pressure 99/55 96/56 94/55 O2 Sat by Pulse 98 97 97 Oximetry 03/13/18 03/13/18 10:40 10:50 Temperature Pulse Rate 91 H 90 Pulse Rate [ From Monitor] Respiratory 24 28 H Rate Blood Pressure 99/55 97/53 O2 Sat by Pulse 99 100 Oximetry Constitutional: appears uncomfortable, other (middle aged chronically ill looking AAF; normocephalic with moderately increased rsepiratory effort on B IPAP) Eyes: non-icteric ENT: oropharynx moist, other (ETT 23 cm YOLANDA) Neck: supple, no lymphadenopathy, no JVD, other (no thyromegaly) Effort: very labored Ascultation: Bilateral: diminished breath sounds, rhonchi Percussion: Bilateral: not dull Cardiovascular: regular rate and rhythm Gastrointestinal: normoactive bowel sounds, soft, non-tender, non-distended Integumentary: other (poor turgor) Extremities: no cyanosis, no edema, pulses normal, no ischemia or petechiae Neurologic: unable to assess, other (opens eyes to verbal calls) Psychiatric: other (encephalopathic) CBC and BMP: 03/14/18 04:58 03/14/18 04:58 ABG, PT/INR, D-dimer: ABG POC ABG pH 7.187 (7.35-7.45) L 03/13/18 05:47 POC ABG pCO2 65.6 (35-45) H 03/13/18 05:47 POC ABG pO2 92 (80-105) 03/13/18 05:47 POC ABG HCO3 24.9 03/13/18 05:47 POC ABG Total CO2 27 03/13/18 05:47 POC ABG O2 Sat 94 03/13/18 05:47 Abnormal lab findings: Abnormal Labs 03/11/18 03/11/18 03/11/18 14:20 14:20 14:20 RBC Hgb 10.0 L Hct MCV 74 L MCH 23 L Plt Count Seg Neuts % (Manual) 89.0 H Lymphocytes % (Manual) 8.0 L Nucleated RBC % Lymphocytes # (Manual) 0.4 L POC ABG pH POC ABG pCO2 POC ABG pO2 Sodium 160 H Potassium Chloride 118.4 H BUN 64 H Creatinine 1.5 H Glucose 592 H* POC Glucose Lactic Acid 7.20 H* Calcium AST 60 H Total Creatine Kinase 1434 H Albumin 2.0 L Urine WBC (Auto) 03/11/18 03/11/18 03/11/18 14:50 15:04 15:08 RBC Hgb Hct MCV MCH Plt Count Seg Neuts % (Manual) Lymphocytes % (Manual) Nucleated RBC % Lymphocytes # (Manual) POC ABG pH POC ABG pCO2 POC ABG pO2 61 L Sodium Potassium Chloride BUN Creatinine Glucose POC Glucose Lactic Acid 6.60 H* Calcium AST Total Creatine Kinase Albumin Urine WBC (Auto) 7.0 H 03/11/18 03/11/18 03/11/18 16:38 16:40 19:36 RBC Hgb Hct MCV MCH Plt Count Seg Neuts % (Manual) Lymphocytes % (Manual) Nucleated RBC % Lymphocytes # (Manual) POC ABG pH POC ABG pCO2 POC ABG pO2 Sodium Potassium Chloride BUN Creatinine Glucose POC Glucose 314 H Lactic Acid 5.40 H* 3.70 H* Calcium AST Total Creatine Kinase Albumin Urine WBC (Auto) 03/11/18 03/11/18 03/11/18 19:36 19:36 20:33 RBC Hgb Hct MCV MCH Plt Count Seg Neuts % (Manual) Lymphocytes % (Manual) Nucleated RBC % Lymphocytes # (Manual) POC ABG pH POC ABG pCO2 POC ABG pO2 Sodium 165 H* Potassium 3.1 L Chloride 128.9 H BUN 45 H Creatinine Glucose 230 H POC Glucose Lactic Acid 3.70 H* 4.00 H* Calcium 7.4 L AST Total Creatine Kinase Albumin Urine WBC (Auto) 03/11/18 03/11/18 03/11/18 20:53 23:37 23:42 RBC Hgb Hct MCV MCH Plt Count Seg Neuts % (Manual) Lymphocytes % (Manual) Nucleated RBC % Lymphocytes # (Manual) POC ABG pH 7.298 L POC ABG pCO2 POC ABG pO2 65 L Sodium Potassium Chloride BUN Creatinine Glucose POC Glucose 235 H Lactic Acid 2.30 H* Calcium AST Total Creatine Kinase Albumin Urine WBC (Auto) 03/12/18 03/12/18 03/12/18 01:44 03:38 05:15 RBC Hgb Hct MCV MCH Plt Count Seg Neuts % (Manual) Lymphocytes % (Manual) Nucleated RBC % Lymphocytes # (Manual) POC ABG pH POC ABG pCO2 POC ABG pO2 Sodium Potassium Chloride BUN Creatinine Glucose POC Glucose 303 H Lactic Acid 2.30 H* 2.40 H* Calcium AST Total Creatine Kinase Albumin Urine WBC (Auto) 03/12/18 03/12/18 03/12/18 08:22 11:14 18:23 RBC Hgb Hct MCV MCH Plt Count Seg Neuts % (Manual) Lymphocytes % (Manual) Nucleated RBC % Lymphocytes # (Manual) POC ABG pH POC ABG pCO2 31.8 L POC ABG pO2 48 L Sodium Potassium Chloride BUN Creatinine Glucose POC Glucose 209 H 255 H Lactic Acid Calcium AST Total Creatine Kinase Albumin Urine WBC (Auto) 03/12/18 03/12/18 03/13/18 19:06 23:45 03:00 RBC 3.35 L Hgb 7.7 L Hct 24.8 L D MCV 74 L MCH 23 L Plt Count 139 L Seg Neuts % (Manual) 75.0 H Lymphocytes % (Manual) 8.0 L Nucleated RBC % 1.0 H Lymphocytes # (Manual) 0.4 L POC ABG pH 7.220 L POC ABG pCO2 57.3 H POC ABG pO2 52 L Sodium Potassium Chloride BUN Creatinine Glucose POC Glucose 227 H Lactic Acid Calcium AST Total Creatine Kinase Albumin Urine WBC (Auto) 03/13/18 03/13/18 03/13/18 03:00 05:14 05:47 RBC Hgb Hct MCV MCH Plt Count Seg Neuts % (Manual) Lymphocytes % (Manual) Nucleated RBC % Lymphocytes # (Manual) POC ABG pH 7.187 L POC ABG pCO2 65.6 H POC ABG pO2 Sodium 157 H Potassium 2.6 L* Chloride 120.3 H BUN 18 H Creatinine Glucose 314 H POC Glucose 364 H Lactic Acid Calcium 7.4 L AST Total Creatine Kinase Albumin Urine WBC (Auto) Chest x-ray: image reviewed (bibasilar predominant infiltrates) Allied health notes reviewed: nursing
[2018-03-13] MEDS ORDERED: KCL 10MEQ/100ML 10 MEQ/100 ML BAG IV ONE (12:40)
--- NOTE | 2018-03-13 12:45 | Progress Note ---
Assessment and Plan Assessment and plan: Sepsis/septic shock. Continue IV antibiotics. Follow-up blood cultures. Cont. pressors to maintain MAP>65. Patient with elevated lactic acid Hypokalemia. IV KCL. F/U BMP UTI. Follow-up urine cultures. Acute hypoxemic respiratory failure. pt decompensated requiring mech vent. Pulm following HCAP. Cont current abx. F/U serial CXR Diabetes mellitus type 2. Continue Accu-Cheks and sliding scale insulin. Toxic metabolic encephalopathy. Continue to treat underlying causes. Hypernatremia. Continue free water and D5W IV fluids. Consider Nephrology consult if no improvement in am Acute renal failure. Etiology likely secondary to vasomotor nephropathy. However, patient may also have acute kidney injury secondary to ATN/sepsis. Renal and bladder US normal History Interval history: Pt decompensated requiring intubation last evening Hospitalist Physical - Constitutional Vitals: Temp Pulse Resp BP Pulse Ox 99.3 F 90 28 H 97/53 100 03/13/18 08:00 03/13/18 12:10 03/13/18 10:50 03/13/18 12:10 03/13/18 12:10 General appearance: Present: severe distress - EENT Eyes: Present: PERRL, EOM intact ENT: hearing intact, clear oral mucosa, dentition normal - Neck Neck: Present: supple, normal ROM - Respiratory Respiratory effort: normal Respiratory: bilateral: diminished, rales - Cardiovascular Rhythm: regular Heart Sounds: Present: S1 & S2. Absent: gallop, rub - Extremities Extremities: no ischemia, No edema, Full ROM - Abdominal General gastrointestinal: soft, non-tender, non-distended, normal bowel sounds - Integumentary Integumentary: Present: clear, warm, dry - Neurologic Neurologic: CNII-XII intact, moves all extremities Results - Labs CBC & Chem 7: 03/13/18 03:00 03/13/18 03:00 Labs: Laboratory Last Values WBC 5.4 K/mm3 (4.5-11.0) 03/13/18 03:00 RBC 3.35 M/mm3 (3.65-5.03) L 03/13/18 03:00 Hgb 7.7 gm/dl (10.1-14.3) L 03/13/18 03:00 Hct 24.8 % (30.3-42.9) L D 03/13/18 03:00 MCV 74 fl (79-97) L 03/13/18 03:00 MCH 23 pg (28-32) L 03/13/18 03:00 MCHC 31 % (30-34) 03/13/18 03:00 RDW 14.5 % (13.2-15.2) 03/13/18 03:00 Plt Count 139 K/mm3 (140-440) L 03/13/18 03:00 Lymph % (Auto) [place] 03/11/18 14:20 Clinch % (Auto) [place] 03/11/18 14:20 Eos % (Auto) [place] 03/11/18 14:20 Baso % (Auto) [place] 03/11/18 14:20 Lymph # [place] 03/11/18 14:20 Clinch # [place] 03/11/18 14:20 Eos # [place] 03/11/18 14:20 Baso # [place] 03/11/18 14:20 Add Manual Diff Complete 03/13/18 03:00 Total Counted 100 03/13/18 03:00 Seg Neutrophils % [place] 03/13/18 03:00 Seg Neuts % (Manual) 75.0 % (40.0-70.0) H 03/13/18 03:00 Band Neutrophils % 14.0 % 03/13/18 03:00 Lymphocytes % (Manual) 8.0 % (13.4-35.0) L 03/13/18 03:00 Reactive Lymphs % (Man) 0 % 03/13/18 03:00 Monocytes % (Manual) 0 % (0.0-7.3) 03/13/18 03:00 Eosinophils % (Manual) 0 % (0.0-4.3) 03/13/18 03:00 Basophils % (Manual) 0 % (0.0-1.8) 03/13/18 03:00 Metamyelocytes % 3.0 % 03/13/18 03:00 Myelocytes % 0 % 03/13/18 03:00 Promyelocytes % 0 % 03/13/18 03:00 Blast Cells % 0 % 03/13/18 03:00 Nucleated RBC % 1.0 % (0.0-0.9) H 03/13/18 03:00 Seg Neutrophils # [place] 03/11/18 14:20 Seg Neutrophils # Man 4.1 K/mm3 (1.8-7.7) 03/13/18 03:00 Band Neutrophils # 0.8 K/mm3 03/13/18 03:00 Lymphocytes # (Manual) 0.4 K/mm3 (1.2-5.4) L 03/13/18 03:00 Abs React Lymphs (Man) 0.0 K/mm3 03/13/18 03:00 Monocytes # (Manual) 0.0 K/mm3 (0.0-0.8) 03/13/18 03:00 Eosinophils # (Manual) 0.0 K/mm3 (0.0-0.4) 03/13/18 03:00 Basophils # (Manual) 0.0 K/mm3 (0.0-0.1) 03/13/18 03:00 Metamyelocytes # 0.2 K/mm3 03/13/18 03:00 Myelocytes # 0.0 K/mm3 03/13/18 03:00 Promyelocytes # 0.0 K/mm3 03/13/18 03:00 Blast Cells # 0.0 K/mm3 03/13/18 03:00 WBC Morphology Not Reportable 03/13/18 03:00 Hypersegmented Neuts Not Reportable 03/13/18 03:00 Hyposegmented Neuts Not Reportable 03/13/18 03:00 Hypogranular Neuts Not Reportable 03/13/18 03:00 Smudge Cells Not Reportable 03/13/18 03:00 Toxic Granulation Not Reportable 03/13/18 03:00 Toxic Vacuolation Rare 03/13/18 03:00 Dohle Bodies Rare 03/13/18 03:00 Pelger-Huet Anomaly Not Reportable 03/13/18 03:00 Jimbo Rods Not Reportable 03/13/18 03:00 Platelet Estimate Cons 03/13/18 03:00 Clumped Platelets Not Reportable 03/13/18 03:00 Plt Clumps, EDTA Not Reportable 03/13/18 03:00 Large Platelets Few 03/13/18 03:00 Giant Platelets Not Reportable 03/13/18 03:00 Platelet Satelliting Not Reportable 03/13/18 03:00 Plt Morphology Comment Not Reportable 03/13/18 03:00 RBC Morphology Not Reportable 03/13/18 03:00 Dimorphic RBCs Not Reportable 03/13/18 03:00 Polychromasia Not Reportable 03/13/18 03:00 Hypochromasia 1+ 03/13/18 03:00 Poikilocytosis Not Reportable 03/13/18 03:00 Anisocytosis 1+ 03/13/18 03:00 Microcytosis Not Reportable 03/13/18 03:00 Macrocytosis Not Reportable 03/13/18 03:00 Spherocytes Not Reportable 03/13/18 03:00 Pappenheimer Bodies Not Reportable 03/13/18 03:00 Sickle Cells Not Reportable 03/13/18 03:00 Target Cells Few 03/13/18 03:00 Tear Drop Cells Not Reportable 03/13/18 03:00 Ovalocytes Not Reportable 03/13/18 03:00 Helmet Cells Not Reportable 03/13/18 03:00 Nolen-Fulshear Bodies Not Reportable 03/13/18 03:00 [place] Rings Not Reportable 03/13/18 03:00 Marco Cells Not Reportable 03/13/18 03:00 Bite Cells Not Reportable 03/13/18 03:00 Crenated Cell Not Reportable 03/13/18 03:00 Elliptocytes Not Reportable 03/13/18 03:00 Acanthocytes (Spur) Not Reportable 03/13/18 03:00 Rouleaux Not Reportable 03/13/18 03:00 Hemoglobin C Crystals Not Reportable 03/13/18 03:00 Schistocytes Not Reportable 03/13/18 03:00 Malaria parasites Not Reportable 03/13/18 03:00 Justino Bodies Not Reportable 03/13/18 03:00 Hem Pathologist Commnt No 03/13/18 03:00 APTT 28.2 Sec. (24.2-36.6) 03/11/18 14:44 POC ABG pH 7.187 (7.35-7.45) L 03/13/18 05:47 POC ABG pCO2 65.6 (35-45) H 03/13/18 05:47 POC ABG pO2 92 (80-105) 03/13/18 05:47 POC ABG HCO3 24.9 03/13/18 05:47 POC ABG Total CO2 27 03/13/18 05:47 POC ABG O2 Sat 94 03/13/18 05:47 POC ABG Base Excess -3 03/13/18 05:47 FiO2 90 % 03/13/18 05:47 Sodium 157 mmol/L (137-145) H 03/13/18 03:00 Potassium 2.6 mmol/L (3.6-5.0) L* 03/13/18 03:00 Chloride 120.3 mmol/L (98-107) H 03/13/18 03:00 Carbon Dioxide 24 mmol/L (22-30) 03/13/18 03:00 Anion Gap 15 mmol/L 03/13/18 03:00 BUN 18 mg/dL (7-17) H 03/13/18 03:00 Creatinine 0.7 mg/dL (0.7-1.2) 03/13/18 03:00 Estimated GFR > 60 ml/min 03/13/18 03:00 BUN/Creatinine Ratio 26 % 03/13/18 03:00 Glucose 314 mg/dL (65-100) H 03/13/18 03:00 POC Glucose 304 (70-105) H 03/13/18 12:32 Lactic Acid 2.40 mmol/L (0.7-2.0) H* 03/12/18 03:38 Calcium 7.4 mg/dL (8.4-10.2) L 03/13/18 03:00 Total Bilirubin 0.50 mg/dL (0.1-1.2) 03/11/18 14:20 AST 60 units/L (5-40) H 03/11/18 14:20 ALT 53 units/L (7-56) 03/11/18 14:20 Alkaline Phosphatase 75 units/L (35-129) 03/11/18 14:20 Total Creatine Kinase 1434 units/L (30-135) H 03/11/18 14:20 Total Protein 7.3 g/dL (6.3-8.2) 03/11/18 14:20 Albumin 2.0 g/dL (3.9-5) L 03/11/18 14:20 Albumin/Globulin Ratio 0.4 % 03/11/18 14:20 Urine Color Yellow (Yellow) 03/11/18 14:50 Urine Turbidity Slightly-cloudy (Clear) 03/11/18 14:50 Urine pH 5.0 (5.0-7.0) 03/11/18 14:50 Ur Specific Neal 1.020 (1.003-1.030) 03/11/18 14:50 Urine Protein 30 mg/dl mg/dL (Negative) 03/11/18 14:50 Urine Glucose (UA) >=500 mg/dL (Negative) 03/11/18 14:50 Urine Ketones Neg mg/dL (Negative) 03/11/18 14:50 Urine Blood Mod (Negative) 03/11/18 14:50 Urine Nitrite Neg (Negative) 03/11/18 14:50 Urine Bilirubin Neg (Negative) 03/11/18 14:50 Urine Urobilinogen 4.0 mg/dL (<2.0) 03/11/18 14:50 Ur Leukocyte Esterase Neg (Negative) 03/11/18 14:50 Urine WBC (Auto) 7.0 /HPF (0.0-6.0) H 03/11/18 14:50 Urine RBC (Auto) 3.0 /HPF (0.0-6.0) 03/11/18 14:50 U Epithel Cells (Auto) < 1.0 /HPF (0-13.0) 03/11/18 14:50 Urine Mucus Few /HPF 03/11/18 14:50 Urine Yeast (Budding) 1+ /HPF 03/11/18 14:50 Blood Type O POSITIVE 03/11/18 14:47 Antibody Screen Negative 03/11/18 14:47 Nutrition/Malnutrition Assess - Dietary Evaluation Nutrition/Malnutrition Findings: Nutrition Notes Start: 03/12/18 09:05 Freq: Status: Active Protocol: Document 03/13/18 08:59 OL (Rec: 03/13/18 09:04 OL [id number]) Nutrition Notes Initial or Follow up Brief Note Current Diagnoses Diabetes Sepsis Respiratory Failure Other Pertinent Diagnosis encephalopathy, UTI Current Diet TF Labs/Tests Na 157 K 2.6 glucose 314 Ca 7.4 Medications propofil 2.76mL/hr (provides 73 lipid kcal) Height 5 ft 5 in Weight 46 kg [place] Body Weight (lbs) 125.0 BMI 16.9 Subjective/Other Information RD consult to evaluate nutrition intake. Pt. already followed by RD. Pt. now on vent. Burn Absent Trauma Absent Is patient on ventilator? Yes Is Patient Ambulatory and/or Out of Bed No REE-([facility]-confined to bed) 1254.072 Kcal/Kg value to use for calculation 35 Approximate Energy Requirements Using 1610 kcal/Kg Calculation Used for Recommendations Kcal/kg Additional Notes protein (1.2-2g/kg): 55-92g/ day fluid: 1mL/kcal or per MD Nutrition Intervention Anticipated Discharge Needs: Unable to determine at this time. Follow-Up By: 03/14/18 Additional Comments f/u: new TF; reassess flush
--- NOTE | 2018-03-13 12:47 | Cat Scan Report ---
FINAL REPORT EXAM: CT CHEST WO CON HISTORY: sepsis TECHNIQUE: CT of chest without IV contrast. Coronal and sagittal reconstructed images provided. PRIORS: None currently available. FINDINGS: Large consolidations in the right upper and right lower lobes are more prominent than the moderate co nsolidation in left lower lobe. Small focal consolidation in the lingula. Scattered infiltrates in th e left upper lobe and right middle lobe. No pneumothorax. No distinct endobronchial lesions. Endotrac heal tube is above the mike and satisfactory. Small bilateral pleural effusions. Main pulmonary artery is unremarkable. No aortic aneurysm. Heart size unremarkable. No pericardial effusion. Enlarged bilateral axillary, hilar, and mediastinal lymph nodes are probably reactive. No obvious mas s but the evaluation is limited by the lack of intravenous contrast. Mild anasarca. Partially imaged percutaneous G-tube in the distended stomach. Right jugular central line tip is in the SVC. No suspicious osseous lesions on this limited examination of the skeleton. Metastatic disease better evaluated with bone scan. Degenerative changes are present in the spine. IMPRESSION: Suspect bilateral pneumonia. Worse on the right. Differential diagnosis includes aspiration, ARDS, an d severe inhalation injury.
[2018-03-13] MEDS ORDERED: VANCOMYCIN/NS 1 GM/250 ML 1 GM/250 ML BAG IV ONE (13:00)
[2018-03-13] MEDS ORDERED: VANCOMYCIN/NS 1 GM/250 ML 1 GM/250 ML BAG IV SCH (13:00)
--- NOTE | 2018-03-13 14:38 | XRay Report ---
AP CHEST: HISTORY: PICC line placement The left arm PICC terminates in the mid right atrium. Consider retraction by 2-3 cm to the cavoatrial junction. Diffuse right lung infiltrate and left perihilar infiltrates are stable since earlier today at 0200 hrs. Heart size remains within normal limits. IMPRESSION: Left arm PICC as described. Stable bilateral lung infiltrates.
--- NOTE | 2018-03-13 15:56 | XRay Report ---
FINAL REPORT EXAM: XR CHEST 1V AP HISTORY: left upper arm picc placement TECHNIQUE: Frontal chest x-ray. PRIORS: Chest x-ray March 12, 2018. FINDINGS: Cardiac silhouette is within normal limits. Bilateral pulmonary opacities are unchanged compared to the prior. More consolidated areas in the rig ht upper and right lower lungs are stable. No pneumothorax. No significant effusions. There are no suspicious osseous lesions. Endotracheal tube tip is approximately 7 cm above the mike. Recommend repositioning at 5 cm above t he mike. Left PICC line tip is present near the cavoatrial junction. IMPRESSION: Recommend repositioning of the endotracheal tube. Left PICC line tip is satisfactory. Otherwise, pulmonary findings. Ray[place] level II reporting initiated.
[2018-03-13] MEDS ORDERED: NACL 0.9% 1000 ML 2,000 ML ONE (16:16)
--- NOTE | 2018-03-13 16:22 | XRay Report ---
FINAL REPORT EXAM: XR CHEST 1V AP HISTORY: follow up respiratory failure TECHNIQUE: Frontal chest x-ray. PRIORS: Chest x-ray March 12, 2018. FINDINGS: Cardiac silhouette is within normal limits. Focal consolidations in the right upper and right lower lobe or slightly decreased compared to the pr ior. Scattered infiltrates in the right middle lobe may be unchanged. Scattered left perihilar and le ft lower lobe infiltrates are slightly decreased compared to prior. Small bilateral pleural effusions . No pneumothorax. There are no suspicious osseous lesions. Endotracheal tube tip is approximately 6.3 cm above the mike. Satisfactory. Right jugular central line tip is present within the SVC. IMPRESSION: Bilateral pulmonary opacities. Suspect pneumonia. Slightly decreased compared to prior. Differential diagnosis includes acute pneumonitis, aspiration, and in the lesion injury. Small bilateral pleural effusions.
[2018-03-13] MEDS: fentaNYL DRIP Premix 2,000 MCG/100 ML BAG IV SCH (16:26)
--- NOTE | 2018-03-13 16:57 | XRay Report ---
FINAL REPORT EXAM: XR CHEST 1V AP HISTORY: ETT placement COMPARISON: Chest radiograph performed on 03/13/2018 TECHNIQUE: Single frontal view of the chest FINDINGS: Endotracheal tube with tip in the midtrachea. Left upper extremity PICC line with tip at the superior cavoatrial junction. The cardiomediastinal silhouette is normal in appearance. Unchanged airspace opacities, diffuse on the right and in a perihilar distribution on the left. No pl eural effusion or pneumothorax. No acute bony or soft tissue abnormality. IMPRESSION: Endotracheal tube with tip in the midtrachea. Unchanged airspace opacities.
[2018-03-13] MEDS ORDERED: NACL 0.9% 1000 ML 1,000 ML IV ONE (18:31)
[2018-03-13] MEDS: SODIUM CHLORIDE FLUSH SYRINGE 10 ML IV SCH ×2 (19:42→22:00)
[2018-03-14] MEDS: HumaLOG SUB-Q SCH ×4 (00:40→18:23)
[2018-03-14] MEDS: VANCOMYCIN 750 MG in NACL 0.9% 250ML 250 ML IV SCH ×2 (00:40→12:30)
[2018-03-14] MEDS: Vasostrict 20 UNIT in NACL 0.9% 100 ML IV SCH ×2 (02:14→12:26)
--- NOTE | 2018-03-14 04:08 | XRay Report ---
FINAL REPORT PROCEDURE: XR CHEST 1V AP TECHNIQUE: Chest radiograph anteroposterior view. CPT 64459 HISTORY: follow up respiratory failure COMPARISON: 03/13/2018 FINDINGS: Heart: Normal. Mediastinum/Vessels: Normal. Lungs/Pleural space: There are bilateral perihilar infiltrates worse on the right. There is no pleura l effusion or pneumothorax.. Bony thorax: No acute osseous abnormality. Life support devices: Endotracheal tube is in the mid trachea. There is a left-sided PICC line. The t ip is in the superior vena cava.. IMPRESSION: Heart size is normal. There are bilateral perihilar infiltrates worse on the right. There is no pleural effusion or pneumot horax.. Endotracheal tube is in the mid trachea. There is a left-sided PICC line. The tip is in the superior vena cava..
[2018-03-14 05:20] LABS: Hemoglobin 7.3 gm/dl (10.1-14.3); Mean Corpuscular HGB Conc 32 % (30-34); Mean Corpuscular Volume 73 fl (79-97); Platelet Count 114 K/mm3 (140-440); Red Blood Count 3.16 M/mm3 (3.65-5.03)
[2018-03-14 05:34] LABS: BUN/Creatinine Ratio 28; Blood Urea Nitrogen 14 mg/dL (7-17); Calcium 7.2 mg/dL (8.4-10.2); Hemolysis Index 2
[2018-03-14] MEDS ORDERED: POTASSIUM CHLORIDE FEEDTUBE ONE (06:01)
[2018-03-14] MEDS ORDERED: KCL 20MEQ/100ML 20 MEQ/100 ML BAG IV ONE (06:01)
[2018-03-14 06:22] LABS: Band Neutrophils # (Manual) 0.5 K/mm3; Basophils % (Manual) 0 % (0.0-1.8); Total Cells Counted 100
[2018-03-14 06:23] LABS: Anisocytosis 1+; Hypochromasia 2+; Ovalocytes Few; Platelet Estimate Consistent w Auto; Poikilocytosis 1+; Target Cells Few; Tear Drop Cells Rare
[2018-03-14] MEDS: LEVOPHED DRIP 4 MG/NS 250 ML 4 MG/250 ML BAG IV SCH ×2 (06:55→11:28)
--- NOTE | 2018-03-14 08:44 | Progress Note ---
Assessment and Plan Assessment and plan: Sepsis/septic shock. Continue IV antibiotics. Follow-up blood cultures. Cont. pressors to maintain MAP>65. Patient with elevated lactic acid UTI. Follow-up urine cultures. Acute hypoxemic respiratory failure. Pt decompensated requiring mech vent. Pulm following HCAP. Cont current abx. F/U serial CXR Diabetes mellitus type 2. Continue Accu-Cheks and sliding scale insulin. Toxic metabolic encephalopathy. Continue to treat underlying causes. Hypernatremia. Continue free water and D5W IV fluids. Hypokalemia. Replace and recheck hypomagnesemia. replace and recheck in am Acute renal failure. Etiology likely secondary to vasomotor nephropathy. However, patient may also have acute kidney injury secondary to ATN/sepsis. Renal and bladder US normal Full code History Interval history: Patient still intubated Hospitalist Physical - Physical exam Narrative exam: GEN: Not in acute distress, intubated HEENT: Normocephalic, atraumatic, Neck: supple, No JVD Lungs: Clear to auscultation, no wheeze Heart:S1 and S2 regular, no murmurs, rubs or gallop, Abd:soft, non tender, non distended, normal bowel sounds Ext: No edema, no clubbing or cyanosis Neuro: Intubated - Constitutional Vitals: Temp Pulse Resp BP Pulse Ox 99.3 F 81 27 H 127/84 100 03/14/18 07:53 03/14/18 07:11 03/14/18 07:11 03/14/18 07:11 03/14/18 07:11 General appearance: Present: severe distress Results - Labs CBC & Chem 7: 03/14/18 04:58 03/14/18 04:58 Labs: Laboratory Last Values WBC 5.9 K/mm3 (4.5-11.0) 03/14/18 04:58 RBC 3.16 M/mm3 (3.65-5.03) L 03/14/18 04:58 Hgb 7.3 gm/dl (10.1-14.3) L 03/14/18 04:58 Hct 23.0 % (30.3-42.9) L 03/14/18 04:58 MCV 73 fl (79-97) L 03/14/18 04:58 MCH 23 pg (28-32) L 03/14/18 04:58 MCHC 32 % (30-34) 03/14/18 04:58 RDW 15.0 % (13.2-15.2) 03/14/18 04:58 Plt Count 114 K/mm3 (140-440) L 03/14/18 04:58 Lymph % (Auto) Digital Account Coordinator 03/11/18 14:20 [place] % (Auto) Digital Account Coordinator 03/11/18 14:20 Eos % (Auto) Digital Account Coordinator 03/11/18 14:20 Baso % (Auto) Digital Account Coordinator 03/11/18 14:20 Lymph # Digital Account Coordinator 03/11/18 14:20 [place] # Digital Account Coordinator 03/11/18 14:20 Eos # Digital Account Coordinator 03/11/18 14:20 Baso # Digital Account Coordinator 03/11/18 14:20 Add Manual Diff Complete 03/14/18 04:58 Total Counted 100 03/14/18 04:58 Seg Neutrophils % Digital Account Coordinator 03/14/18 04:58 Seg Neuts % (Manual) 83.0 % (40.0-70.0) H 03/14/18 04:58 Band Neutrophils % 8.0 % 03/14/18 04:58 Lymphocytes % (Manual) 7.0 % (13.4-35.0) L 03/14/18 04:58 Reactive Lymphs % (Man) 0 % 03/14/18 04:58 Monocytes % (Manual) 1.0 % (0.0-7.3) 03/14/18 04:58 Eosinophils % (Manual) 1.0 % (0.0-4.3) 03/14/18 04:58 Basophils % (Manual) 0 % (0.0-1.8) 03/14/18 04:58 Metamyelocytes % 0 % 03/14/18 04:58 Myelocytes % 0 % 03/14/18 04:58 Promyelocytes % 0 % 03/14/18 04:58 Blast Cells % 0 % 03/14/18 04:58 Nucleated RBC % Not Reportable 03/14/18 04:58 Seg Neutrophils # Digital Account Coordinator 03/11/18 14:20 Seg Neutrophils # Man 4.9 K/mm3 (1.8-7.7) 03/14/18 04:58 Band Neutrophils # 0.5 K/mm3 03/14/18 04:58 Lymphocytes # (Manual) 0.4 K/mm3 (1.2-5.4) L 03/14/18 04:58 Abs React Lymphs (Man) 0.0 K/mm3 03/14/18 04:58 Monocytes # (Manual) 0.1 K/mm3 (0.0-0.8) 03/14/18 04:58 Eosinophils # (Manual) 0.1 K/mm3 (0.0-0.4) 03/14/18 04:58 Basophils # (Manual) 0.0 K/mm3 (0.0-0.1) 03/14/18 04:58 Metamyelocytes # 0.0 K/mm3 03/14/18 04:58 Myelocytes # 0.0 K/mm3 03/14/18 04:58 Promyelocytes # 0.0 K/mm3 03/14/18 04:58 Blast Cells # 0.0 K/mm3 03/14/18 04:58 WBC Morphology Not Reportable 03/14/18 04:58 Hypersegmented Neuts Not Reportable 03/14/18 04:58 Hyposegmented Neuts Not Reportable 03/14/18 04:58 Hypogranular Neuts Not Reportable 03/14/18 04:58 Smudge Cells Not Reportable 03/14/18 04:58 Toxic Granulation Not Reportable 03/14/18 04:58 Toxic Vacuolation Not Reportable 03/14/18 04:58 Dohle Bodies Not Reportable 03/14/18 04:58 Pelger-Huet Anomaly Not Reportable 03/14/18 04:58 Jimbo Rods Not Reportable 03/14/18 04:58 Platelet Estimate Consistent w auto 03/14/18 04:58 Clumped Platelets Not Reportable 03/14/18 04:58 Plt Clumps, EDTA Not Reportable 03/14/18 04:58 Large Platelets Not Reportable 03/14/18 04:58 Giant Platelets Not Reportable 03/14/18 04:58 Platelet Satelliting Not Reportable 03/14/18 04:58 Plt Morphology Comment Not Reportable 03/14/18 04:58 RBC Morphology Not Reportable 03/14/18 04:58 Dimorphic RBCs Not Reportable 03/14/18 04:58 Polychromasia Not Reportable 03/14/18 04:58 Hypochromasia 2+ 03/14/18 04:58 Poikilocytosis 1+ 03/14/18 04:58 Anisocytosis 1+ 03/14/18 04:58 Microcytosis 1+ 03/14/18 04:58 Macrocytosis Not Reportable 03/14/18 04:58 Spherocytes Not Reportable 03/14/18 04:58 Pappenheimer Bodies Not Reportable 03/14/18 04:58 Sickle Cells Not Reportable 03/14/18 04:58 Target Cells Few 03/14/18 04:58 Tear Drop Cells Rare 03/14/18 04:58 Ovalocytes Few 03/14/18 04:58 Helmet Cells Not Reportable 03/14/18 04:58 [place] Bodies Not Reportable 03/14/18 04:58 [place] Rings Not Reportable 03/14/18 04:58 [place] Cells Not Reportable 03/14/18 04:58 Bite Cells Not Reportable 03/14/18 04:58 Crenated Cell Not Reportable 03/14/18 04:58 Elliptocytes Rare 03/14/18 04:58 Acanthocytes (Spur) Not Reportable 03/14/18 04:58 Rouleaux Not Reportable 03/14/18 04:58 Hemoglobin C Crystals Not Reportable 03/14/18 04:58 Schistocytes Not Reportable 03/14/18 04:58 Malaria parasites Not Reportable 03/14/18 04:58 [place] Bodies Not Reportable 03/14/18 04:58 Hem Pathologist Commnt No 03/14/18 04:58 APTT 28.2 Sec. (24.2-36.6) 03/11/18 14:44 POC ABG pH 7.380 (7.35-7.45) 03/14/18 05:01 POC ABG pCO2 43.9 (35-45) 03/14/18 05:01 POC ABG pO2 140 (80-105) H 03/14/18 05:01 POC ABG HCO3 26.0 03/14/18 05:01 POC ABG Total CO2 27 03/14/18 05:01 POC ABG O2 Sat 99 03/14/18 05:01 POC ABG Base Excess 1 03/14/18 05:01 FiO2 80 % 03/14/18 05:01 Sodium 150 mmol/L (137-145) H 03/14/18 04:58 Potassium 2.4 mmol/L (3.6-5.0) L* 03/14/18 04:58 Chloride 111.0 mmol/L (98-107) H 03/14/18 04:58 Carbon Dioxide 28 mmol/L (22-30) 03/14/18 04:58 Anion Gap 13 mmol/L 03/14/18 04:58 BUN 14 mg/dL (7-17) 03/14/18 04:58 Creatinine 0.5 mg/dL (0.7-1.2) L 03/14/18 04:58 Estimated GFR > 60 ml/min 03/14/18 04:58 BUN/Creatinine Ratio 28 % 03/14/18 04:58 Glucose 139 mg/dL (65-100) H 03/14/18 04:58 POC Glucose 185 (70-105) H 03/14/18 04:56 Lactic Acid 2.40 mmol/L (0.7-2.0) H* 03/12/18 03:38 Calcium 7.2 mg/dL (8.4-10.2) L 03/14/18 04:58 Total Bilirubin 0.50 mg/dL (0.1-1.2) 03/11/18 14:20 AST 60 units/L (5-40) H 03/11/18 14:20 ALT 53 units/L (7-56) 03/11/18 14:20 Alkaline Phosphatase 75 units/L (35-129) 03/11/18 14:20 Total Creatine Kinase 1434 units/L (30-135) H 03/11/18 14:20 Total Protein 7.3 g/dL (6.3-8.2) 03/11/18 14:20 Albumin 2.0 g/dL (3.9-5) L 03/11/18 14:20 Albumin/Globulin Ratio 0.4 % 03/11/18 14:20 Urine Color Yellow (Yellow) 03/11/18 14:50 Urine Turbidity Slightly-cloudy (Clear) 03/11/18 14:50 Urine pH 5.0 (5.0-7.0) 03/11/18 14:50 Ur Specific [place] 1.020 (1.003-1.030) 03/11/18 14:50 Urine Protein 30 mg/dl mg/dL (Negative) 03/11/18 14:50 Urine Glucose (UA) >=500 mg/dL (Negative) 03/11/18 14:50 Urine Ketones Neg mg/dL (Negative) 03/11/18 14:50 Urine Blood Mod (Negative) 03/11/18 14:50 Urine Nitrite Neg (Negative) 03/11/18 14:50 Urine Bilirubin Neg (Negative) 03/11/18 14:50 Urine Urobilinogen 4.0 mg/dL (<2.0) 03/11/18 14:50 Ur Leukocyte Esterase Neg (Negative) 03/11/18 14:50 Urine WBC (Auto) 7.0 /HPF (0.0-6.0) H 03/11/18 14:50 Urine RBC (Auto) 3.0 /HPF (0.0-6.0) 03/11/18 14:50 U Epithel Cells (Auto) < 1.0 /HPF (0-13.0) 03/11/18 14:50 Urine Mucus Few /HPF 03/11/18 14:50 Urine Yeast (Budding) 1+ /HPF 03/11/18 14:50 Blood Type O POSITIVE 03/11/18 14:47 Antibody Screen Negative 03/11/18 14:47 Nutrition/Malnutrition Assess - Dietary Evaluation Nutrition/Malnutrition Findings: Nutrition Notes Start: 03/12/18 09:05 Freq: Status: Active Protocol: Document 03/13/18 08:59 OL (Rec: 03/13/18 09:04 OL [id number]) Nutrition Notes Initial or Follow up Brief Note Current Diagnoses Diabetes Sepsis Respiratory Failure Other Pertinent Diagnosis encephalopathy, UTI Current Diet TF Labs/Tests Na 157 K 2.6 glucose 314 Ca 7.4 Medications propofil 2.76mL/hr (provides 73 lipid kcal) Height 5 ft 5 in Weight 46 kg Desha Body Weight (lbs) 125.0 BMI 16.9 Subjective/Other Information RD consult to evaluate nutrition intake. Pt. already followed by RD. Pt. now on vent. Burn Absent Trauma Absent Is patient on ventilator? Yes Is Patient Ambulatory and/or Out of Bed No REE-([facility]-confined to bed) 1254.072 Kcal/Kg value to use for calculation 35 Approximate Energy Requirements Using 1610 kcal/Kg Calculation Used for Recommendations Kcal/kg Additional Notes protein (1.2-2g/kg): 55-92g/ day fluid: 1mL/kcal or per MD Nutrition Intervention Anticipated Discharge Needs: Unable to determine at this time. Follow-Up By: 03/14/18 Additional Comments f/u: new TF; reassess flush
[2018-03-14] MEDS ORDERED: MAGNESIUM SULFATE 3 GM in NACL 0.9% 100 ML IV ONE (11:00)
--- NOTE | 2018-03-14 11:14 | Progress Note ---
Assessment and Plan Acute Hypoxemic Respiratory Failure Severe Sepsis with Shock ARDS UTI (urinary tract infection) due to urinary indwelling catheter Encephalopathy Mixed Acidosis Diabetes mellitus DVT prophylaxis - continue to wean oxygen to keep sats > 90% - keep Peep at 8 cmH2O (re: Hypotension) - LTVV strategies otherwise - VAP bundle addressed - replacing potassium aggressively - continue Severe sepsis protocol - continue Vasopressor support as indicated for target MAP > 65 mmHg - daily ABG's acutely - CT chest demonstrates dense bibasilar consolidation with cavitation vs infected bullae in LLL in particular - continue empiric antibiotic therapy, target HAP - ID consulted and romero defer to them re: AB's - follow Blood, urine and sputum cultures - GI & VTE prophylaxis - Aspiration precautions - continue Free water flushes and hypotonic solution for hypernatremia - Serial BMP's acutely avoiding rapid overcorrection as at risk for pontine myelinosis - Nutrition consult for enteric feeding - Monitor fever curve, - get CRP and trend with lactic acid levels to aid clinical decision making - Strict intake and output in this critically ill patient - continue other care per attending / other consultants The high probability of a clinically significant, sudden or life threatening deterioration of the [cardiac, renal, neuro, respiratory] system(s) required my full and direct attention, intervention and personal management. The aggregate critical care time was [32] minutes. This time is in addition to time spent performing reported procedures but includes the following: [x] Data Review and interpretation [x] Patient assessment and monitoring of vital signs [x] Documentation [x] Medication orders and management Subjective Date of service: 03/14/18 Principal diagnosis: Acute Hypoxemic Respiratory Failure; Severe Sepsis with Shock; ARDS; UTI Interval history: Patient is seen today for: Acute Hypoxemic Respiratory Failure; Severe Sepsis with Shock; ARDS; UTI; Acute Encephalopathy Seen and examined at bedside; 24hour events reviewed; nursing and respiratory care staff consulted; no adverse overnight events reported to me; remains on MVS; AMS is persistent; still with ARDS numbers; no emesis or overt aspiration; remains on vasopressor support Objective Vital Signs - 12hr 03/13/18 03/13/18 03/13/18 23:20 23:30 23:40 Temperature Pulse Rate 98 H 88 95 H Respiratory 30 H 25 H 27 H Rate Blood Pressure 134/75 122/73 122/73 O2 Sat by Pulse 98 97 98 Oximetry 0103/13/18 03/14/18 23:46 23:50 00:00 Temperature 101.4 F H Pulse Rate 103 H Respiratory 18 28 H Rate Blood Pressure O2 Sat by Pulse 98 96 Oximetry 03/14/18 03/14/18 03/14/18 00:01 00:11 00:21 Temperature Pulse Rate 90 88 86 Respiratory 29 H 28 H 28 H Rate Blood Pressure 108/65 108/65 109/60 O2 Sat by Pulse 96 99 99 Oximetry 03/14/18 03/14/18 03/14/18 00:30 00:40 00:51 Temperature Pulse Rate 83 98 H 103 H Respiratory 27 H 30 H 28 H Rate Blood Pressure 84/59 91/64 87/63 O2 Sat by Pulse 97 93 98 Oximetry 03/14/18 03/14/18 03/14/18 01:00 01:11 01:21 Temperature Pulse Rate 102 H 97 H 97 H Respiratory 29 H 28 H 27 H Rate Blood Pressure 108/67 87/63 114/69 O2 Sat by Pulse 96 96 97 Oximetry 03/14/18 03/14/18 03/14/18 01:30 01:41 01:51 Temperature Pulse Rate 95 H 95 H 89 Respiratory 28 H 28 H 28 H Rate Blood Pressure 111/64 111/64 116/66 O2 Sat by Pulse 99 100 Oximetry 03/14/18 03/14/18 03/14/18 02:00 02:11 02:21 Temperature Pulse Rate 92 H 89 89 Respiratory 28 H 26 H 23 Rate Blood Pressure 116/71 116/71 96/63 O2 Sat by Pulse 100 99 Oximetry 03/14/18 03/14/18 03/14/18 02:31 02:41 02:51 Temperature Pulse Rate 94 H 98 H 96 H Respiratory 25 H 30 H 25 H Rate Blood Pressure 115/70 96/63 110/54 O2 Sat by Pulse 98 99 99 Oximetry 03/14/18 03/14/18 03/14/18 03:00 03:11 03:15 Temperature Pulse Rate 95 H 94 H 93 H Respiratory 26 H 22 Rate Blood Pressure 101/58 101/58 114/78 O2 Sat by Pulse 99 100 100 Oximetry 03/14/18 03/14/18 03/14/18 03:21 03:29 03:30 Temperature 99.3 F Pulse Rate 93 H 95 H Respiratory 25 H 26 H Rate Blood Pressure 114/78 103/68 O2 Sat by Pulse 100 99 Oximetry 03/14/18 03/14/18 03/14/18 03:40 03:50 04:00 Temperature Pulse Rate 92 H 95 H 96 H Respiratory 28 H 25 H 29 H Rate Blood Pressure 103/68 113/70 112/68 O2 Sat by Pulse 100 100 99 Oximetry 03/14/18 03/14/18 03/14/18 04:11 04:21 04:30 Temperature Pulse Rate 94 H 94 H 80 Respiratory 27 H 28 H 22 Rate Blood Pressure 112/68 126/78 136/65 O2 Sat by Pulse 100 100 100 Oximetry 03/14/18 03/14/18 03/14/18 04:41 04:51 05:00 Temperature Pulse Rate 79 84 82 Respiratory 28 H 28 H 28 H Rate Blood Pressure 136/65 98/51 106/67 O2 Sat by Pulse 100 100 Oximetry 03/14/18 03/14/18 03/14/18 05:11 05:21 05:30 Temperature Pulse Rate 85 81 81 Respiratory 25 H 26 H 21 Rate Blood Pressure 106/67 119/68 111/64 O2 Sat by Pulse 99 99 99 Oximetry 03/14/18 03/14/18 03/14/18 05:41 05:51 06:01 Temperature Pulse Rate 82 81 86 Respiratory 25 H 28 H 32 H Rate Blood Pressure 111/64 119/64 83/32 O2 Sat by Pulse 100 100 99 Oximetry 03/14/18 03/14/18 03/14/18 06:11 06:21 06:31 Temperature Pulse Rate 81 86 85 Respiratory 26 H 29 H 13 Rate Blood Pressure 83/32 106/68 88/37 O2 Sat by Pulse 100 100 98 Oximetry 03/14/18 03/14/18 03/14/18 06:41 06:51 07:01 Temperature Pulse Rate 84 88 81 Respiratory 28 H 28 H 27 H Rate Blood Pressure 88/37 83/32 127/84 O2 Sat by Pulse 99 100 Oximetry 03/14/18 03/14/18 03/14/18 07:11 07:53 09:40 Temperature 99.3 F Pulse Rate 81 97 H Respiratory 27 H Rate Blood Pressure 127/84 109/64 O2 Sat by Pulse 100 94 Oximetry Constitutional: appears uncomfortable, other (middle aged chronically ill looking AAF; normocephalic with moderately increased rsepiratory effort on BIPAP) Eyes: non-icteric ENT: oropharynx moist, other (ETT 23 cm YOLANDA) Neck: supple, no lymphadenopathy, no JVD, other (no thyromegaly) Effort: very labored Ascultation: Bilateral: diminished breath sounds, rhonchi Percussion: Bilateral: not dull Cardiovascular: regular rate and rhythm Gastrointestinal: normoactive bowel sounds, soft, non-tender, non-distended Integumentary: other (poor turgor) Extremities: no cyanosis, no edema, pulses normal, no ischemia or petechiae Neurologic: unable to assess, other (opens eyes to verbal calls) Psychiatric: other (encephalopathic) CBC and BMP: 03/17/18 04:32 03/17/18 04:32 ABG, PT/INR, D-dimer: ABG POC ABG pH 7.380 (7.35-7.45) 03/14/18 05:01 POC ABG pCO2 43.9 (35-45) 03/14/18 05:01 POC ABG pO2 140 (80-105) H 03/14/18 05:01 POC ABG HCO3 26.0 03/14/18 05:01 POC ABG Total CO2 27 03/14/18 05:01 POC ABG O2 Sat 99 03/14/18 05:01 Abnormal lab findings: Abnormal Labs 03/11/18 03/11/18 03/11/18 14:20 14:20 14:20 RBC Hgb 10.0 L Hct MCV 74 L MCH 23 L Plt Count Seg Neuts % (Manual) 89.0 H Lymphocytes % (Manual) 8.0 L Nucleated RBC % Lymphocytes # (Manual) 0.4 L POC ABG pH POC ABG pCO2 POC ABG pO2 Sodium 160 H Potassium Chloride 118.4 H BUN 64 H Creatinine 1.5 H Glucose 592 H* POC Glucose Lactic Acid 7.20 H* Calcium Magnesium AST 60 H Total Creatine Kinase 1434 H Albumin 2.0 L Urine WBC (Auto) 03/11/18 03/11/18 03/11/18 14:50 15:04 15:08 RBC Hgb Hct MCV MCH Plt Count Seg Neuts % (Manual) Lymphocytes % (Manual) Nucleated RBC % Lymphocytes # (Manual) POC ABG pH POC ABG pCO2 POC ABG pO2 61 L Sodium Potassium Chloride BUN Creatinine Glucose POC Glucose Lactic Acid 6.60 H* Calcium Magnesium AST Total Creatine Kinase Albumin Urine WBC (Auto) 7.0 H 03/11/18 03/11/18 03/11/18 16:38 16:40 19:36 RBC Hgb Hct MCV MCH Plt Count Seg Neuts % (Manual) Lymphocytes % (Manual) Nucleated RBC % Lymphocytes # (Manual) POC ABG pH POC ABG pCO2 POC ABG pO2 Sodium Potassium Chloride BUN Creatinine Glucose POC Glucose 314 H Lactic Acid 5.40 H* 3.70 H* Calcium Magnesium AST Total Creatine Kinase Albumin Urine WBC (Auto) 03/11/18 03/11/18 03/11/18 19:36 19:36 20:33 RBC Hgb Hct MCV MCH Plt Count Seg Neuts % (Manual) Lymphocytes % (Manual) Nucleated RBC % Lymphocytes # (Manual) POC ABG pH POC ABG pCO2 POC ABG pO2 Sodium 165 H* Potassium 3.1 L Chloride 128.9 H BUN 45 H Creatinine Glucose 230 H POC Glucose Lactic Acid 3.70 H* 4.00 H* Calcium 7.4 L Magnesium AST Total Creatine Kinase Albumin Urine WBC (Auto) 03/11/18 03/11/18 03/11/18 20:53 23:37 23:42 RBC Hgb Hct MCV MCH Plt Count Seg Neuts % (Manual) Lymphocytes % (Manual) Nucleated RBC % Lymphocytes # (Manual) POC ABG pH 7.298 L POC ABG pCO2 POC ABG pO2 65 L Sodium Potassium Chloride BUN Creatinine Glucose POC Glucose 235 H Lactic Acid 2.30 H* Calcium Magnesium AST Total Creatine Kinase Albumin Urine WBC (Auto) 03/12/18 03/12/18 03/12/18 01:44 03:38 05:15 RBC Hgb Hct MCV MCH Plt Count Seg Neuts % (Manual) Lymphocytes % (Manual) Nucleated RBC % Lymphocytes # (Manual) POC ABG pH POC ABG pCO2 POC ABG pO2 Sodium Potassium Chloride BUN Creatinine Glucose POC Glucose 303 H Lactic Acid 2.30 H* 2.40 H* Calcium Magnesium AST Total Creatine Kinase Albumin Urine WBC (Auto) 03/12/18 03/12/18 03/12/18 08:22 11:14 18:23 RBC Hgb Hct MCV MCH Plt Count Seg Neuts % (Manual) Lymphocytes % (Manual) Nucleated RBC % Lymphocytes # (Manual) POC ABG pH POC ABG pCO2 31.8 L POC ABG pO2 48 L Sodium Potassium Chloride BUN Creatinine Glucose POC Glucose 209 H 255 H Lactic Acid Calcium Magnesium AST Total Creatine Kinase Albumin Urine WBC (Auto) 03/12/18 03/12/18 03/13/18 19:06 23:45 03:00 RBC 3.35 L Hgb 7.7 L Hct 24.8 L D MCV 74 L MCH 23 L Plt Count 139 L Seg Neuts % (Manual) 75.0 H Lymphocytes % (Manual) 8.0 L Nucleated RBC % 1.0 H Lymphocytes # (Manual) 0.4 L POC ABG pH 7.220 L POC ABG pCO2 57.3 H POC ABG pO2 52 L Sodium Potassium Chloride BUN Creatinine Glucose POC Glucose 227 H Lactic Acid Calcium Magnesium AST Total Creatine Kinase Albumin Urine WBC (Auto) 03/13/18 03/13/18 03/13/18 03:00 05:14 05:47 RBC Hgb Hct MCV MCH Plt Count Seg Neuts % (Manual) Lymphocytes % (Manual) Nucleated RBC % Lymphocytes # (Manual) POC ABG pH 7.187 L POC ABG pCO2 65.6 H POC ABG pO2 Sodium 157 H Potassium 2.6 L* Chloride 120.3 H BUN 18 H Creatinine Glucose 314 H POC Glucose 364 H Lactic Acid Calcium 7.4 L Magnesium AST Total Creatine Kinase Albumin Urine WBC (Auto) 03/13/18 03/13/18 03/13/18 12:32 18:08 23:31 RBC Hgb Hct MCV MCH Plt Count Seg Neuts % (Manual) Lymphocytes % (Manual) Nucleated RBC % Lymphocytes # (Manual) POC ABG pH POC ABG pCO2 POC ABG pO2 Sodium Potassium Chloride BUN Creatinine Glucose POC Glucose 304 H 169 H 125 H Lactic Acid Calcium Magnesium AST Total Creatine Kinase Albumin Urine WBC (Auto) 03/14/18 03/14/18 03/14/18 04:56 04:58 04:58 RBC 3.16 L Hgb 7.3 L Hct 23.0 L MCV 73 L MCH 23 L Plt Count 114 L Seg Neuts % (Manual) 83.0 H Lymphocytes % (Manual) 7.0 L Nucleated RBC % Lymphocytes # (Manual) 0.4 L POC ABG pH POC ABG pCO2 POC ABG pO2 Sodium 150 H Potassium 2.4 L* Chloride 111.0 H BUN Creatinine 0.5 L Glucose 139 H POC Glucose 185 H Lactic Acid Calcium 7.2 L Magnesium AST Total Creatine Kinase Albumin Urine WBC (Auto) 03/14/18 03/14/18 04:58 05:01 RBC Hgb Hct MCV MCH Plt Count Seg Neuts % (Manual) Lymphocytes % (Manual) Nucleated RBC % Lymphocytes # (Manual) POC ABG pH POC ABG pCO2 POC ABG pO2 140 H Sodium Potassium Chloride BUN Creatinine Glucose POC Glucose Lactic Acid Calcium Magnesium 1.30 L AST Total Creatine Kinase Albumin Urine WBC (Auto) Allied health notes reviewed: nursing
[2018-03-14] MEDS: MAXIPIME/NS 2 GM/100 ML 2 GM/100 ML BAG IV SCH ×2 (11:24→21:46)
[2018-03-14] MEDS: LEVAQUIN 750MG/150ML 750 MG/150 ML BAG IV SCH (11:24)
[2018-03-14] MEDS: PEPCID PO SCH ×2 (11:25→21:51)
[2018-03-14] MEDS: DIPRIVAN 10 MG/ML 1,000 MG/100 ML BOTTLE IV SCH (11:26)
[2018-03-14] MEDS: fentaNYL DRIP Premix 2,000 MCG/100 ML BAG IV SCH (11:27)
[2018-03-14] MEDS: POTASSIUM CHLORIDE FEEDTUBE SCH ×2 (12:43→18:23)
[2018-03-14] MEDS: DUONEB *Not for PRN Use IH SCH ×2 (14:16→19:43)
[2018-03-14] MEDS: SODIUM CHLORIDE FLUSH SYRINGE 10 ML IV SCH ×2 (20:33→21:46)
[2018-03-14] MEDS: D5NS 1,000 ML IV SCH (21:57)
[2018-03-15] MEDS: HumaLOG SUB-Q SCH ×4 (01:55→18:48)
[2018-03-15] MEDS: VANCOMYCIN 750 MG in NACL 0.9% 250ML 250 ML IV SCH ×2 (01:59→12:59)
[2018-03-15] MEDS: DUONEB *Not for PRN Use IH SCH ×4 (03:13→20:36)
--- NOTE | 2018-03-15 03:50 | XRay Report ---
FINAL REPORT PROCEDURE: XR CHEST 1V AP TECHNIQUE: Chest radiograph anteroposterior view. CPT 27437 HISTORY: follow up respiratory failure COMPARISON: 03/14/2018 FINDINGS: Heart: Normal. Mediastinum/Vessels: Normal. Lungs/Pleural space: Scattered infiltrates identified in both lungs have not changed mild right effus ion.. Bony thorax: No acute osseous abnormality. Life support devices: The endotracheal tube ends 4 centimeters above the mike. Left PICC catheter e nds in the SVC. IMPRESSION: Scattered infiltrates identified in both lungs have not changed. The endotracheal tube and left PICC catheter are properly positioned.
[2018-03-15] MEDS: DIPRIVAN 10 MG/ML 1,000 MG/100 ML BOTTLE IV SCH (04:18)
[2018-03-15 05:55] LABS: Hematocrit 21.3 % (30.3-42.9); Hemoglobin 6.7 gm/dl (10.1-14.3); Mean Corpuscular HGB Conc 32 % (30-34); Mean Corpuscular Volume 73 fl (79-97); Red Blood Count 2.93 M/mm3 (3.65-5.03); Red Cell Distribution Width 14.9 % (13.2-15.2)
[2018-03-15 06:01] LABS: Platelet Count 87 K/mm3 (140-440)
[2018-03-15 06:16] LABS: BUN/Creatinine Ratio 21; Blood Urea Nitrogen 15 mg/dL (7-17); Calcium 7.1 mg/dL (8.4-10.2); Hemolysis Index 3
[2018-03-15] MEDS ORDERED: POTASSIUM CHLORIDE FEEDTUBE NR (07:18)
[2018-03-15] MEDS ORDERED: ADRENALIN ONE ×2 (07:37→08:48)
--- NOTE | 2018-03-15 07:41 | Event Note ---
Date: 03/15/18 Cross Covering Hospitalist for [employer] [facility] called 7:04am Patient went asytole. She was hypoxic on the Mechanical Ventilation. ACLS was started. She received multiple rounds of Epi, IV calcium, iv mag 2g followed by potassium, K level was 3.0 this morning then 1 amp of HCO3. ROSC. pCXR reviewed, shows right lung "white out". Attending Dr. May at bedside. Family called but no answer per Charge nurse. Dr. Howard paged ekg, abg, troponin, repeat CXR, repeat lab ordered CCT 36 minutes
[2018-03-15] MEDS ORDERED: NACL 0.9% 500 ML 500 ML IV NR (07:55)
--- NOTE | 2018-03-15 07:57 | Event Note ---
Date: 03/15/18 Dilan rose called at 07:04, for asystole after bradycardia, code run per ACLS protocol. She had CPR done and was given multiple doses of Epinephrine, Bicarb, atropine. Patient resuscitated, got pulse 07:18. Cardiac arrest again at 07:33, resuscitated at 07:48 after CPR and multiple doses of Epinephrine.
--- NOTE | 2018-03-15 07:58 | Progress Note ---
Assessment and Plan Assessment and plan: Cardiopulmanary arrest today x 2. Dilan rose called at 07:04, for asystole after bradycardia, code run per ACLS protocol. She had CPR done and was given multiple doses of Epinephrine, Bicarb, Atropine. Patient resuscitated, got pulse 07:18. Cardiac arrest again at 07:33, resuscitated at 07:48 after CPR and multiple doses of Epinephrine. Later discussed with Pulmonology. Sepsis/septic shock. Continue IV antibiotics. Follow-up blood cultures. Cont. pressors to maintain MAP>65. Patient with elevated lactic acid UTI. Acute hypoxemic respiratory failure. Pt decompensated requiring mech vent. Pulm following HCAP. Cont current abx. F/U serial CXR Diabetes mellitus type 2. Continue Accu-Cheks and sliding scale insulin. Toxic metabolic encephalopathy. Continue to treat underlying causes. Hypernatremia. Continue free water and D5W IV fluids. Hypokalemia. Replace and recheck hypomagnesemia. replace and recheck in am Acute renal failure. Etiology likely secondary to vasomotor nephropathy. However, patient may also have acute kidney injury secondary to ATN/sepsis. Renal and bladder US normal Full code status Poor prognosis History Interval history: Patient had cardiopulmonary arrest X 2 today Hospitalist Physical - Physical exam Narrative exam: GEN: Not in acute distress, intubated HEENT: Normocephalic, atraumatic, Neck: supple, No JVD Lungs: Clear to auscultation, no wheeze Heart:S1 and S2 regular, no murmurs, rubs or gallop, Abd:soft, non tender, non distended, normal bowel sounds Ext: No edema, no clubbing or cyanosis Neuro: Intubated - Constitutional Vitals: Temp Pulse Resp BP Pulse Ox 99.7 F H 123 H 29 H 102/49 94 03/15/18 04:00 03/15/18 06:00 03/15/18 06:00 03/15/18 06:00 03/15/18 06:00 Results - Labs CBC & Chem 7: 03/15/18 07:30 03/15/18 07:30 Labs: Laboratory Last Values WBC 4.4 K/mm3 (4.5-11.0) L 03/15/18 05:11 RBC 2.93 M/mm3 (3.65-5.03) L 03/15/18 05:11 Hgb 6.7 gm/dl (10.1-14.3) L 03/15/18 05:11 Hct 21.3 % (30.3-42.9) L 03/15/18 05:11 MCV 73 fl (79-97) L 03/15/18 05:11 MCH 23 pg (28-32) L 03/15/18 05:11 MCHC 32 % (30-34) 03/15/18 05:11 RDW 14.9 % (13.2-15.2) 03/15/18 05:11 Plt Count 87 K/mm3 (140-440) L 03/15/18 05:11 Lymph % (Auto) [place] 03/11/18 14:20 [place] % (Auto) Guideman 03/11/18 14:20 Eos % (Auto) [place] 03/11/18 14:20 Baso % (Auto) [place] 03/11/18 14:20 Lymph # [place] 03/11/18 14:20 Whiteside # Guideman 03/11/18 14:20 Eos # [place] 03/11/18 14:20 Baso # [place] 03/11/18 14:20 Add Manual Diff Complete 03/14/18 04:58 Total Counted 100 03/14/18 04:58 Seg Neutrophils % [place] 03/14/18 04:58 Seg Neuts % (Manual) 83.0 % (40.0-70.0) H 03/14/18 04:58 Band Neutrophils % 8.0 % 03/14/18 04:58 Lymphocytes % (Manual) 7.0 % (13.4-35.0) L 03/14/18 04:58 Reactive Lymphs % (Man) 0 % 03/14/18 04:58 Monocytes % (Manual) 1.0 % (0.0-7.3) 03/14/18 04:58 Eosinophils % (Manual) 1.0 % (0.0-4.3) 03/14/18 04:58 Basophils % (Manual) 0 % (0.0-1.8) 03/14/18 04:58 Metamyelocytes % 0 % 03/14/18 04:58 Myelocytes % 0 % 03/14/18 04:58 Promyelocytes % 0 % 03/14/18 04:58 Blast Cells % 0 % 03/14/18 04:58 Nucleated RBC % Not Reportable 03/14/18 04:58 Seg Neutrophils # [place] 03/11/18 14:20 Seg Neutrophils # Man 4.9 K/mm3 (1.8-7.7) 03/14/18 04:58 Band Neutrophils # 0.5 K/mm3 03/14/18 04:58 Lymphocytes # (Manual) 0.4 K/mm3 (1.2-5.4) L 03/14/18 04:58 Abs React Lymphs (Man) 0.0 K/mm3 03/14/18 04:58 Monocytes # (Manual) 0.1 K/mm3 (0.0-0.8) 03/14/18 04:58 Eosinophils # (Manual) 0.1 K/mm3 (0.0-0.4) 03/14/18 04:58 Basophils # (Manual) 0.0 K/mm3 (0.0-0.1) 03/14/18 04:58 Metamyelocytes # 0.0 K/mm3 03/14/18 04:58 Myelocytes # 0.0 K/mm3 03/14/18 04:58 Promyelocytes # 0.0 K/mm3 03/14/18 04:58 Blast Cells # 0.0 K/mm3 03/14/18 04:58 WBC Morphology Not Reportable 03/14/18 04:58 Hypersegmented Neuts Not Reportable 03/14/18 04:58 Hyposegmented Neuts Not Reportable 03/14/18 04:58 Hypogranular Neuts Not Reportable 03/14/18 04:58 Smudge Cells Not Reportable 03/14/18 04:58 Toxic Granulation Not Reportable 03/14/18 04:58 Toxic Vacuolation Not Reportable 03/14/18 04:58 Dohle Bodies Not Reportable 03/14/18 04:58 Pelger-Huet Anomaly Not Reportable 03/14/18 04:58 Jimbo Rods Not Reportable 03/14/18 04:58 Platelet Estimate Consistent w auto 03/14/18 04:58 Clumped Platelets Not Reportable 03/14/18 04:58 Plt Clumps, EDTA Not Reportable 03/14/18 04:58 Large Platelets Not Reportable 03/14/18 04:58 Giant Platelets Not Reportable 03/14/18 04:58 Platelet Satelliting Not Reportable 03/14/18 04:58 Plt Morphology Comment Not Reportable 03/14/18 04:58 RBC Morphology Not Reportable 03/14/18 04:58 Dimorphic RBCs Not Reportable 03/14/18 04:58 Polychromasia Not Reportable 03/14/18 04:58 Hypochromasia 2+ 03/14/18 04:58 Poikilocytosis 1+ 03/14/18 04:58 Anisocytosis 1+ 03/14/18 04:58 Microcytosis 1+ 03/14/18 04:58 Macrocytosis Not Reportable 03/14/18 04:58 Spherocytes Not Reportable 03/14/18 04:58 Pappenheimer Bodies Not Reportable 03/14/18 04:58 Sickle Cells Not Reportable 03/14/18 04:58 Target Cells Few 03/14/18 04:58 Tear Drop Cells Rare 03/14/18 04:58 Ovalocytes Few 03/14/18 04:58 Helmet Cells Not Reportable 03/14/18 04:58 Nolen-[place] Bodies Not Reportable 03/14/18 04:58 [place] Rings Not Reportable 03/14/18 04:58 Marco Cells Not Reportable 03/14/18 04:58 Bite Cells Not Reportable 03/14/18 04:58 Crenated Cell Not Reportable 03/14/18 04:58 Elliptocytes Rare 03/14/18 04:58 Acanthocytes (Spur) Not Reportable 03/14/18 04:58 Rouleaux Not Reportable 03/14/18 04:58 Hemoglobin C Crystals Not Reportable 03/14/18 04:58 Schistocytes Not Reportable 03/14/18 04:58 Malaria parasites Not Reportable 03/14/18 04:58 Justino Bodies Not Reportable 03/14/18 04:58 Hem Pathologist Commnt No 03/14/18 04:58 APTT 28.2 Sec. (24.2-36.6) 03/11/18 14:44 POC ABG pH 7.182 (7.35-7.45) L 03/15/18 05:54 POC ABG pCO2 74.8 (35-45) H 03/15/18 05:54 POC ABG pO2 64 (80-105) L 03/15/18 05:54 POC ABG HCO3 28.0 03/15/18 05:54 POC ABG Total CO2 30 03/15/18 05:54 POC ABG O2 Sat 85 03/15/18 05:54 POC ABG Base Excess 0 03/15/18 05:54 FiO2 100 % 03/15/18 05:54 Sodium 149 mmol/L (137-145) H 03/15/18 05:11 Potassium 3.0 mmol/L (3.6-5.0) L D 03/15/18 05:11 Chloride 111.1 mmol/L (98-107) H 03/15/18 05:11 Carbon Dioxide 28 mmol/L (22-30) 03/15/18 05:11 Anion Gap 13 mmol/L 03/15/18 05:11 BUN 15 mg/dL (7-17) 03/15/18 05:11 Creatinine 0.7 mg/dL (0.7-1.2) 03/15/18 05:11 Estimated GFR > 60 ml/min 03/15/18 05:11 BUN/Creatinine Ratio 21 % 03/15/18 05:11 Glucose 255 mg/dL (65-100) H 03/15/18 05:11 POC Glucose 298 (70-105) H 03/15/18 05:44 Lactic Acid 2.40 mmol/L (0.7-2.0) H* 03/12/18 03:38 Calcium 7.1 mg/dL (8.4-10.2) L 03/15/18 05:11 Magnesium 1.30 mg/dL (1.7-2.3) L 03/14/18 04:58 Total Bilirubin 0.50 mg/dL (0.1-1.2) 03/11/18 14:20 AST 60 units/L (5-40) H 03/11/18 14:20 ALT 53 units/L (7-56) 03/11/18 14:20 Alkaline Phosphatase 75 units/L (35-129) 03/11/18 14:20 Total Creatine Kinase 1434 units/L (30-135) H 03/11/18 14:20 Total Protein 7.3 g/dL (6.3-8.2) 03/11/18 14:20 Albumin 2.0 g/dL (3.9-5) L 03/11/18 14:20 Albumin/Globulin Ratio 0.4 % 03/11/18 14:20 Urine Color Yellow (Yellow) 03/11/18 14:50 Urine Turbidity Slightly-cloudy (Clear) 03/11/18 14:50 Urine pH 5.0 (5.0-7.0) 03/11/18 14:50 Ur Specific [place] 1.020 (1.003-1.030) 03/11/18 14:50 Urine Protein 30 mg/dl mg/dL (Negative) 03/11/18 14:50 Urine Glucose (UA) >=500 mg/dL (Negative) 03/11/18 14:50 Urine Ketones Neg mg/dL (Negative) 03/11/18 14:50 Urine Blood Mod (Negative) 03/11/18 14:50 Urine Nitrite Neg (Negative) 03/11/18 14:50 Urine Bilirubin Neg (Negative) 03/11/18 14:50 Urine Urobilinogen 4.0 mg/dL (<2.0) 03/11/18 14:50 Ur Leukocyte Esterase Neg (Negative) 03/11/18 14:50 Urine WBC (Auto) 7.0 /HPF (0.0-6.0) H 03/11/18 14:50 Urine RBC (Auto) 3.0 /HPF (0.0-6.0) 03/11/18 14:50 U Epithel Cells (Auto) < 1.0 /HPF (0-13.0) 03/11/18 14:50 Urine Mucus Few /HPF 03/11/18 14:50 Urine Yeast (Budding) 1+ /HPF 03/11/18 14:50 Blood Type O POSITIVE 03/11/18 14:47 Antibody Screen Negative 03/11/18 14:47 Nutrition/Malnutrition Assess - Dietary Evaluation Nutrition/Malnutrition Findings: Nutrition Notes Start: 03/12/18 09:05 Freq: Status: Active Protocol: Document 03/14/18 13:40 LAURA (Rec: 03/14/18 13:47 LAURA [id number] [email or web address]) Nutrition Notes Initial or Follow up Reassessment Current Diagnoses Diabetes Sepsis Respiratory Failure Other Pertinent Diagnosis UTI, pneu Current Diet TF - Glucerna 1.2 at 50ml/hr Labs/Tests Na 150 K 2.4 Mg 1.3 Medications Mag sulfate x 1, 40mEq KCl x 1 , Propofol at 4.5ml/hr ( provides 119 kcal from fat) Height 5 ft 5 in Weight 50.6 kg [place] Body Weight (lbs) 125.0 BMI 18.6 Weight change and time frame Current wt obtained from bed scale Weight Status Underweight Subjective/Other Information Pt remains on vent support. She is tolerating TF at goal rate, per RN. RN flushing with 200ml water q4h. Percent of energy/protein needs met: 100% energy and pro Burn Absent Trauma Absent #1 Nutrition Diagnoses Inadequate oral intake Diagnosis Progress(for reassessment Continues documentation) Is patient on ventilator? Yes Is Patient Ambulatory and/or Out of Bed No REE-([facility]-confined to bed) 1309.212 Kcal/Kg value to use for calculation 35 Approximate Energy Requirements Using 1771 kcal/Kg Calculation Used for Recommendations Kcal/kg Additional Notes Pro needs 1.2-2g/k-101g/ day Fluid needs 1ml/kcal Nutrition Intervention Nutrition Support: Continue Glucerna 1.2 at 50mL/ hr. 200mL flush q4h Kcal 1,440 Protein (gm) 72 Fluid (mL) 966 Goal #1 TF tolerance Goal #2 TF to meet 100% nutrient needs Goal #3 Wt maintenance and/or gain Follow-Up By: 03/20/18 Additional Comments F/U: stable TF, vent status, Na lab/need for 200ml q4h water flush, propofol
[2018-03-15] MEDS: ADRENALIN 16 MG in NACL 0.9% 250ML 234 ML IV SCH (08:00)
[2018-03-15] MEDS ORDERED: ADRENALIN IV SCH (08:00)
[2018-03-15] MEDS: KCL 10MEQ/100ML 10 MEQ/100 ML BAG IV SCH ×4 (08:00→12:11)
[2018-03-15] MEDS ORDERED: ADRENALIN IV ONE (08:48)
[2018-03-15] MEDS ORDERED: MAGNESIUM SULFATE ONE (08:48)
[2018-03-15] MEDS ORDERED: INTROPIN DRIP 800 MG/D5W 250 ML IV ONE (08:48)
[2018-03-15] MEDS ORDERED: CALCIUM CHLORIDE IV ONE (08:48)
[2018-03-15 09:09] LABS: Alanine Aminotransferase 47 units/L (7-56); Albumin 1.4 g/dL (3.9-5); BUN/Creatinine Ratio 17; Blood Urea Nitrogen 15 mg/dL (7-17); Calcium 7.7 mg/dL (8.4-10.2); Hemolysis Index 9
--- NOTE | 2018-03-15 09:29 | Event Note ---
Date: 03/15/18 Patient had bradycardia, asystole again at 08:49, code run per ACLS protocol. CPR and multiple doses of Epinephrine. Pulse regained at 09:01. I discussed with daughter at bedside. She wants everything done. Maintain Full code status.
[2018-03-15 09:36] LABS: Hematocrit 20.5 % (30.3-42.9); Hemoglobin 6.2 gm/dl (10.1-14.3); Mean Corpuscular HGB Conc 30 % (30-34); Mean Corpuscular Volume 77 fl (79-97); Red Blood Count 2.67 M/mm3 (3.65-5.03); Red Cell Distribution Width 15.9 % (13.2-15.2)
--- NOTE | 2018-03-15 09:40 | Progress Note ---
Assessment and Plan Cardiopulonary arrest with ROSC Severe sepsis with septic shock and MODS Acute hypoxemic respiratory failure on MVS ARDS, severe Lactic acidosis Acute hypoxemic respiratory failure Bilateral nodular alveolar infiltrates Cachexia Acute encephalopathy ( toxic, metabolic) Moderate to severe protein calorie malnutrition Pancytopenia( probably secondary to sepsis and medications) Post arrest, evaluated for TTM but not a candidate secondary to thrombocytopenia -Intra-arterial line placement -VAP bundle addressed -Transfuse for HgB<7g/dL -ARDS net protocol, permissive hypercapnia with lung protective strategies. -Severe sepsis protocol -Bicarbonate infusion - Wean vasopressor support as indicated for MAP >65 -prn ABG -Empiric antibiotic therapy -ID consult placed -VTE prophylaxis with SCDs -Aspiration precautions -Monitor fever curve, trend lactic acid levels -Strict intake and output in this critically ill patient CONDITION: CRITICAL CODE STATUS: FULL CODE PROGNOSIS: GUARDED. Discussed care plan with RT, RN Discussed extensively with the family at the bedside. Per their wishes, patient is to be resuscitated in the event of another cardiac arrest. The high probability of a clinically significant, sudden or life threatening deterioration of the [cardiac, renal, neurology, respiratory] system(s) required my full and direct attention, intervention and personal management. The aggregate critical care time was [45] minutes. This time is in addition to time spent performing reported procedures but includes the following: [x] Data Review and interpretation [x] Patient assessment and monitoring of vital signs [x] Documentation [x] Medication orders and management Subjective Date of service: 03/15/18 Principal diagnosis: Acute Hypoxemic Respiratory Failure; Severe Sepsis with Shock; ARDS; UTI Interval history: Patient is seen today for: Acute Hypoxemic Respiratory Failure; Severe Sepsis with Shock; ARDS; UTI; Acute Encephalopathy: s/p cardiopulmonary arrest x3 with ROSC Seen and examined at bedside; 24hour events reviewed; nursing and respiratory care staff consulted; no adverse overnight events reported to me; This morning patient had bradycardia with PEA arrest x2 with ROSC then asystole again at 08:49 with ROSC I was called by the hospitalist service . Daughter at the bedside and they want full resuscitative measures. Objective Vital Signs - 12hr 03/14/18 03/14/18 03/14/18 21:41 21:51 22:00 Temperature Pulse Rate 115 H 113 H 110 H Pulse Rate [ Anterior Bilateral Throughout] Respiratory 33 H 33 H 34 H Rate Respiratory Rate [Anterior Bilateral Throughout] Blood Pressure 92/49 91/58 103/57 O2 Sat by Pulse 94 95 94 Oximetry 03/14/18 03/14/18 03/14/18 22:11 22:21 22:23 Temperature Pulse Rate 112 H 116 H 114 H Pulse Rate [ Anterior Bilateral Throughout] Respiratory 34 H 33 H 34 H Rate Respiratory Rate [Anterior Bilateral Throughout] Blood Pressure 103/57 98/53 98/53 O2 Sat by Pulse 94 93 93 Oximetry 03/14/18 03/14/18 03/14/18 22:30 22:41 22:51 Temperature Pulse Rate 116 H 117 H 117 H Pulse Rate [ Anterior Bilateral Throughout] Respiratory 33 H 31 H 32 H Rate Respiratory Rate [Anterior Bilateral Throughout] Blood Pressure 100/51 100/51 96/51 O2 Sat by Pulse 92 94 95 Oximetry 03/14/18 03/14/18 03/14/18 23:00 23:11 23:21 Temperature Pulse Rate 118 H 120 H 121 H Pulse Rate [ Anterior Bilateral Throughout] Respiratory 31 H 31 H 30 H Rate Respiratory Rate [Anterior Bilateral Throughout] Blood Pressure 93/49 93/49 101/53 O2 Sat by Pulse 92 92 94 Oximetry 03/14/18 03/14/18 03/14/18 23:30 23:38 23:41 Temperature 98.3 F Pulse Rate 118 H 121 H Pulse Rate [ Anterior Bilateral Throughout] Respiratory 31 H 31 H Rate Respiratory Rate [Anterior Bilateral Throughout] Blood Pressure 92/49 92/49 O2 Sat by Pulse 94 95 Oximetry 03/14/18 03/15/18 03/15/18 23:51 00:00 00:11 Temperature Pulse Rate 121 H 115 H 118 H Pulse Rate [ Anterior Bilateral Throughout] Respiratory 32 H 31 H 32 H Rate Respiratory Rate [Anterior Bilateral Throughout] Blood Pressure 93/47 100/51 102/50 O2 Sat by Pulse 94 94 92 Oximetry 03/15/18 03/15/18 03/15/18 00:20 00:21 00:30 Temperature Pulse Rate 115 H 119 H 122 H Pulse Rate [ Anterior Bilateral Throughout] Respiratory 32 H 31 H Rate Respiratory Rate [Anterior Bilateral Throughout] Blood Pressure 100/51 94/51 100/48 O2 Sat by Pulse 94 92 91 Oximetry 03/15/18 03/15/18 03/15/18 00:41 00:51 01:00 Temperature Pulse Rate 121 H 120 H 118 H Pulse Rate [ Anterior Bilateral Throughout] Respiratory 32 H 32 H 31 H Rate Respiratory Rate [Anterior Bilateral Throughout] Blood Pressure 100/48 103/49 97/49 O2 Sat by Pulse 90 91 88 Oximetry 03/15/18 03/15/18 03/15/18 01:11 01:21 01:30 Temperature Pulse Rate 121 H 120 H 119 H Pulse Rate [ Anterior Bilateral Throughout] Respiratory 31 H 32 H 30 H Rate Respiratory Rate [Anterior Bilateral Throughout] Blood Pressure 97/49 95/48 104/47 O2 Sat by Pulse 90 90 89 Oximetry 03/15/18 03/15/18 03/15/18 01:41 01:51 02:00 Temperature Pulse Rate 120 H 122 H 122 H Pulse Rate [ Anterior Bilateral Throughout] Respiratory 31 H 31 H 31 H Rate Respiratory Rate [Anterior Bilateral Throughout] Blood Pressure 104/47 95/48 77/50 O2 Sat by Pulse 89 89 88 Oximetry 03/15/18 03/15/18 03/15/18 02:11 02:21 02:30 Temperature Pulse Rate 118 H 121 H 117 H Pulse Rate [ Anterior Bilateral Throughout] Respiratory 31 H 31 H 30 H Rate Respiratory Rate [Anterior Bilateral Throughout] Blood Pressure 77/50 81/48 70/52 O2 Sat by Pulse 89 90 91 Oximetry 03/15/18 03/15/18 03/15/18 02:41 02:51 03:00 Temperature Pulse Rate 113 H 129 H 132 H Pulse Rate [ Anterior Bilateral Throughout] Respiratory 28 H 30 H 30 H Rate Respiratory Rate [Anterior Bilateral Throughout] Blood Pressure 95/58 101/56 102/51 O2 Sat by Pulse 82 L 89 92 Oximetry 03/15/18 03/15/18 03/15/18 03:11 03:15 03:21 Temperature Pulse Rate 131 H 131 H 113 H Pulse Rate [ 131 H Anterior Bilateral Throughout] Respiratory 30 H 17 Rate Respiratory 29 H Rate [Anterior Bilateral Throughout] Blood Pressure 102/51 102/51 90/49 O2 Sat by Pulse 92 92 77 L Oximetry 03/15/18 03/15/18 03/15/18 03:25 03:30 03:41 Temperature Pulse Rate 130 H 131 H Pulse Rate [ 135 H Anterior Bilateral Throughout] Respiratory 30 H 30 H Rate Respiratory 29 H Rate [Anterior Bilateral Throughout] Blood Pressure 94/49 94/49 O2 Sat by Pulse 92 95 Oximetry 03/15/18 03/15/1819 03:51 04:00 04:11 Temperature 99.7 F H Pulse Rate 129 H 128 H 127 H Pulse Rate [ Anterior Bilateral Throughout] Respiratory 30 H 30 H 29 H Rate Respiratory Rate [Anterior Bilateral Throughout] Blood Pressure 97/47 96/49 96/49 O2 Sat by Pulse 93 93 92 Oximetry 03/15/18 03/15/18 03/15/18 04:21 04:30 04:41 Temperature Pulse Rate 127 H 126 H 122 H Pulse Rate [ Anterior Bilateral Throughout] Respiratory 27 H 32 H 29 H Rate Respiratory Rate [Anterior Bilateral Throughout] Blood Pressure 99/49 88/47 88/47 O2 Sat by Pulse 94 92 Oximetry 03/15/18 03/15/18 03/15/18 04:51 05:00 05:11 Temperature Pulse Rate 124 H 122 H 117 H Pulse Rate [ Anterior Bilateral Throughout] Respiratory 28 H 28 H 29 H Rate Respiratory Rate [Anterior Bilateral Throughout] Blood Pressure 84/44 92/41 92/41 O2 Sat by Pulse 91 90 91 Oximetry 03/15/18 03/15/18 03/15/18 05:21 05:30 05:41 Temperature Pulse Rate 117 H 119 H 120 H Pulse Rate [ Anterior Bilateral Throughout] Respiratory 28 H 29 H 31 H Rate Respiratory Rate [Anterior Bilateral Throughout] Blood Pressure 92/41 87/40 95/45 O2 Sat by Pulse 88 85 90 Oximetry 03/15/18 03/15/18 05:51 06:00 Temperature Pulse Rate 120 H 123 H Pulse Rate [ Anterior Bilateral Throughout] Respiratory 28 H 29 H Rate Respiratory Rate [Anterior Bilateral Throughout] Blood Pressure 95/45 102/49 O2 Sat by Pulse 93 94 Oximetry Constitutional: appears uncomfortable, other (middle aged chronically ill looking AAF; normocephalic with moderately increased rsepiratory efforts/p ETT to MVS) Eyes: non-icteric ENT: oropharynx moist, other (ETT 23 cm YOLANDA) Neck: supple, no lymphadenopathy, no JVD, other (no thyromegaly) Effort: very labored Ascultation: Bilateral: diminished breath sounds, rhonchi Percussion: Bilateral: not dull Cardiovascular: regular rate and rhythm, other (S1,S2) Gastrointestinal: normoactive bowel sounds, soft, non-tender, non-distended Integumentary: other (poor turgor, upper and lower extremity edema) Extremities: no cyanosis, pulses normal, no ischemia or petechiae Neurologic: other (Pupils dilated, minimally reactive) Psychiatric: other (encephalopathic) CBC and BMP: 03/16/18 03:00 03/16/18 03:00 ABG, PT/INR, D-dimer: ABG POC ABG pH 7.182 (7.35-7.45) L 03/15/18 05:54 POC ABG pCO2 74.8 (35-45) H 03/15/18 05:54 POC ABG pO2 64 (80-105) L 03/15/18 05:54 POC ABG HCO3 28.0 03/15/18 05:54 POC ABG Total CO2 30 03/15/18 05:54 POC ABG O2 Sat 85 03/15/18 05:54 Abnormal lab findings: Abnormal Labs 03/11/18 03/11/18 03/11/18 14:20 14:20 14:20 WBC RBC Hgb 10.0 L Hct MCV 74 L MCH 23 L Plt Count Seg Neuts % (Manual) 89.0 H Lymphocytes % (Manual) 8.0 L Nucleated RBC % Lymphocytes # (Manual) 0.4 L POC ABG pH POC ABG pCO2 POC ABG pO2 Sodium 160 H Potassium Chloride 118.4 H BUN 64 H Creatinine 1.5 H Glucose 592 H* POC Glucose Lactic Acid 7.20 H* Calcium Phosphorus Magnesium AST 60 H Total Creatine Kinase 1434 H Total Protein Albumin 2.0 L Urine WBC (Auto) 03/11/18 03/11/18 03/11/18 14:50 15:04 15:08 WBC RBC Hgb Hct MCV MCH Plt Count Seg Neuts % (Manual) Lymphocytes % (Manual) Nucleated RBC % Lymphocytes # (Manual) POC ABG pH POC ABG pCO2 POC ABG pO2 61 L Sodium Potassium Chloride BUN Creatinine Glucose POC Glucose Lactic Acid 6.60 H* Calcium Phosphorus Magnesium AST Total Creatine Kinase Total Protein Albumin Urine WBC (Auto) 7.0 H 03/11/18 03/11/18 03/11/18 16:38 16:40 19:36 WBC RBC Hgb Hct MCV MCH Plt Count Seg Neuts % (Manual) Lymphocytes % (Manual) Nucleated RBC % Lymphocytes # (Manual) POC ABG pH POC ABG pCO2 POC ABG pO2 Sodium Potassium Chloride BUN Creatinine Glucose POC Glucose 314 H Lactic Acid 5.40 H* 3.70 H* Calcium Phosphorus Magnesium AST Total Creatine Kinase Total Protein Albumin Urine WBC (Auto) 03/11/18 03/11/18 03/11/18 19:36 19:36 20:33 WBC RBC Hgb Hct MCV MCH Plt Count Seg Neuts % (Manual) Lymphocytes % (Manual) Nucleated RBC % Lymphocytes # (Manual) POC ABG pH POC ABG pCO2 POC ABG pO2 Sodium 165 H* Potassium 3.1 L Chloride 128.9 H BUN 45 H Creatinine Glucose 230 H POC Glucose Lactic Acid 3.70 H* 4.00 H* Calcium 7.4 L Phosphorus Magnesium AST Total Creatine Kinase Total Protein Albumin Urine WBC (Auto) 03/11/18 03/11/18 03/11/18 20:53 23:37 23:42 WBC RBC Hgb Hct MCV MCH Plt Count Seg Neuts % (Manual) Lymphocytes % (Manual) Nucleated RBC % Lymphocytes # (Manual) POC ABG pH 7.298 L POC ABG pCO2 POC ABG pO2 65 L Sodium Potassium Chloride BUN Creatinine Glucose POC Glucose 235 H Lactic Acid 2.30 H* Calcium Phosphorus Magnesium AST Total Creatine Kinase Total Protein Albumin Urine WBC (Auto) 03/12/18 03/12/18 03/12/18 01:44 03:38 05:15 WBC RBC Hgb Hct MCV MCH Plt Count Seg Neuts % (Manual) Lymphocytes % (Manual) Nucleated RBC % Lymphocytes # (Manual) POC ABG pH POC ABG pCO2 POC ABG pO2 Sodium Potassium Chloride BUN Creatinine Glucose POC Glucose 303 H Lactic Acid 2.30 H* 2.40 H* Calcium Phosphorus Magnesium AST Total Creatine Kinase Total Protein Albumin Urine WBC (Auto) 03/12/18 03/12/18 03/12/18 08:22 11:14 18:23 WBC RBC Hgb Hct MCV MCH Plt Count Seg Neuts % (Manual) Lymphocytes % (Manual) Nucleated RBC % Lymphocytes # (Manual) POC ABG pH POC ABG pCO2 31.8 L POC ABG pO2 48 L Sodium Potassium Chloride BUN Creatinine Glucose POC Glucose 209 H 255 H Lactic Acid Calcium Phosphorus Magnesium AST Total Creatine Kinase Total Protein Albumin Urine WBC (Auto) 03/12/18 03/12/18 03/13/18 19:06 23:45 03:00 WBC RBC 3.35 L Hgb 7.7 L Hct 24.8 L D MCV 74 L MCH 23 L Plt Count 139 L Seg Neuts % (Manual) 75.0 H Lymphocytes % (Manual) 8.0 L Nucleated RBC % 1.0 H Lymphocytes # (Manual) 0.4 L POC ABG pH 7.220 L POC ABG pCO2 57.3 H POC ABG pO2 52 L Sodium Potassium Chloride BUN Creatinine Glucose POC Glucose 227 H Lactic Acid Calcium Phosphorus Magnesium AST Total Creatine Kinase Total Protein Albumin Urine WBC (Auto) 03/13/18 03/13/18 03/13/18 03:00 05:14 05:47 WBC RBC Hgb Hct MCV MCH Plt Count Seg Neuts % (Manual) Lymphocytes % (Manual) Nucleated RBC % Lymphocytes # (Manual) POC ABG pH 7.187 L POC ABG pCO2 65.6 H POC ABG pO2 Sodium 157 H Potassium 2.6 L* Chloride 120.3 H BUN 18 H Creatinine Glucose 314 H POC Glucose 364 H Lactic Acid Calcium 7.4 L Phosphorus Magnesium AST Total Creatine Kinase Total Protein Albumin Urine WBC (Auto) 03/13/18 03/13/18 03/13/18 12:32 18:08 23:31 WBC RBC Hgb Hct MCV MCH Plt Count Seg Neuts % (Manual) Lymphocytes % (Manual) Nucleated RBC % Lymphocytes # (Manual) POC ABG pH POC ABG pCO2 POC ABG pO2 Sodium Potassium Chloride BUN Creatinine Glucose POC Glucose 304 H 169 H 125 H Lactic Acid Calcium Phosphorus Magnesium AST Total Creatine Kinase Total Protein Albumin Urine WBC (Auto) 03/14/18 03/14/18 03/14/18 04:56 04:58 04:58 WBC RBC 3.16 L Hgb 7.3 L Hct 23.0 L MCV 73 L MCH 23 L Plt Count 114 L Seg Neuts % (Manual) 83.0 H Lymphocytes % (Manual) 7.0 L Nucleated RBC % Lymphocytes # (Manual) 0.4 L POC ABG pH POC ABG pCO2 POC ABG pO2 Sodium 150 H Potassium 2.4 L* Chloride 111.0 H BUN Creatinine 0.5 L Glucose 139 H POC Glucose 185 H Lactic Acid Calcium 7.2 L Phosphorus Magnesium AST Total Creatine Kinase Total Protein Albumin Urine WBC (Auto) 03/14/18 03/14/18 03/14/18 04:58 05:01 12:03 WBC RBC Hgb Hct MCV MCH Plt Count Seg Neuts % (Manual) Lymphocytes % (Manual) Nucleated RBC % Lymphocytes # (Manual) POC ABG pH POC ABG pCO2 POC ABG pO2 140 H Sodium Potassium Chloride BUN Creatinine Glucose POC Glucose 212 H Lactic Acid Calcium Phosphorus Magnesium 1.30 L AST Total Creatine Kinase Total Protein Albumin Urine WBC (Auto) 03/14/18 03/14/18 03/15/18 18:06 23:10 05:11 WBC RBC Hgb Hct MCV MCH Plt Count Seg Neuts % (Manual) Lymphocytes % (Manual) Nucleated RBC % Lymphocytes # (Manual) POC ABG pH POC ABG pCO2 POC ABG pO2 Sodium 149 H Potassium 3.0 L D Chloride 111.1 H BUN Creatinine Glucose 255 H POC Glucose 212 H 226 H Lactic Acid Calcium 7.1 L Phosphorus Magnesium AST Total Creatine Kinase Total Protein Albumin Urine WBC (Auto) 03/15/18 03/15/18 03/15/18 05:11 05:11 05:44 WBC 4.4 L RBC 2.93 L Hgb 6.7 L Hct 21.3 L MCV 73 L MCH 23 L Plt Count 87 L Seg Neuts % (Manual) Lymphocytes % (Manual) Nucleated RBC % Lymphocytes # (Manual) POC ABG pH 7.256 L POC ABG pCO2 67.6 H POC ABG pO2 45 L Sodium Potassium Chloride BUN Creatinine Glucose POC Glucose 298 H Lactic Acid Calcium Phosphorus Magnesium AST Total Creatine Kinase Total Protein Albumin Urine WBC (Auto) 03/15/18 03/15/18 05:54 07:30 WBC RBC Hgb Hct MCV MCH Plt Count Seg Neuts % (Manual) Lymphocytes % (Manual) Nucleated RBC % Lymphocytes # (Manual) POC ABG pH 7.182 L POC ABG pCO2 74.8 H POC ABG pO2 64 L Sodium 152 H Potassium 3.2 L Chloride 109.7 H BUN Creatinine Glucose 316 H POC Glucose Lactic Acid Calcium 7.7 L Phosphorus 4.70 H Magnesium 3.90 H AST 169 H Total Creatine Kinase Total Protein 4.3 L D Albumin 1.4 L Urine WBC (Auto) Chest x-ray: image reviewed Allied health notes reviewed: RT
--- NOTE | 2018-03-15 09:49 | XRay Report ---
AP CHEST: HISTORY: Cardiopulmonary arrest Compared to 03/15/18. The endotracheal tube and left arm PICC remain in the same position. Heart size remains within normal limits. Given differences in penetration, no change can be appreciated in the bilateral infiltrates, right greater than left. Trace right pleural effusion could be present. No pneumothorax. IMPRESSION: No change.
[2018-03-15] MEDS: PEPCID PO SCH (09:55)
[2018-03-15] MEDS: LEVOPHED DRIP 4 MG/NS 250 ML 4 MG/250 ML BAG IV SCH ×4 (10:03→20:46)
[2018-03-15 10:23] LABS: Platelet Count 90 K/mm3 (140-440)
[2018-03-15] MEDS: SODIUM CHLORIDE FLUSH SYRINGE 10 ML IV SCH ×2 (11:23→21:09)
--- NOTE | 2018-03-15 12:06 | Procedure Note ---
Date of procedure: 03/15/18 Pre-op diagnosis: Severe sepsis, septic shock, ARDS, Cardiopulmonary arrest Post-op diagnosis: same Procedure: RIGHT FEMORAL ARTERIAL LINE PLACEMENT Indication; Severe shock on multiple vasopressors requiring invasive hemodynamic blood pressure monitoring. Also requires frequent ABGs and RT has been unable to get ABG sampling from radial or brachial artery. Consent was obtained from the patient's daughter. Time out and universal precautions were addressed. Patient was cleaned and draped in sterile fashion. Under ultrasound guidance the right femoral artery was canulated. Dark pulsatile blood was noted, guidewire passed without difficulty. A femoral catheter was placed, Seldinger technique. Guidewire was removed. An arterial wave form was noted on the monitor. Catheter was sutured in place and a sterile dressing placed. Patient tolerated the procedure well, no immediate complications Surgeon: EMANUEL COLEMAN Estimated blood loss: none Condition: critical Disposition: ICU
[2018-03-15] MEDS: LEVAQUIN 750MG/150ML 750 MG/150 ML BAG IV SCH (12:12)
[2018-03-15] MEDS: MAXIPIME/NS 2 GM/100 ML 2 GM/100 ML BAG IV SCH ×2 (12:43→21:08)
[2018-03-15] MEDS: PEPCID IV SCH ×2 (12:44→21:08)
[2018-03-15] MEDS: Vasostrict 20 UNIT in NACL 0.9% 100 ML IV SCH (15:49)
[2018-03-15] MEDS: INTROPIN DRIP 800 MG/D5W 250 ML 800 MG/250 ML BAG IV SCH ×2 (15:55→20:45)
--- NOTE | 2018-03-15 17:35 | Consultation ---
History of Present Illness - Reason for Consult Consult date: 03/15/18 Septic shock, worsening Requesting physician: WALLACE DELUCA - History of Present Illness The patient is a 57-year-old female with HTN, debility, contractures, half-way resident, schizophrenia and seizure disorder was brought to the emergency room on 03/11/2018 in an unresponsive state. Apparently the patient had having fevers and chills prior to admission on the same day with a temperature of 105F. She was also noted to be in rspiratory distress. She was found to have severe sepsis with hypoxia. She was admitted to the hospital in the ICU, started on sepsis protocol and intubated and placed on the ventilator. She was started on empiric antibiotics. Aspirin stay has been comminuted by cardiac arrest 3. She is currently critically ill requiring 3 pressors: Epinephrine, norepinephr ine, vasopressin. She is also hypoxic and requiring mechanical ventilation at 100% FiO2. Infectious diseases was consulted for antibiotic recommendations. She is unable to provide any history. History was obtained by chart review and discussing with the patient's RN at bedside. Past History Past Medical History: hypertension, seizures, other (Contracture, Debility, Schizophrenia) Past Surgical History: Other (PEG placement) Social history: . denies: smoking, alcohol abuse, prescription drug abuse Family history: hypertension Medications and Allergies Allergies Allergy/AdvReac Type Severity Reaction Status Date / Time pineapple Allergy Itching Unverified 07/11/17 08:44 Active Meds: Active Medications Acetaminophen (Tylenol) 650 mg PO Q6H PRN PRN Reason: Pain, Mild (1-3) Last Admin: 03/13/18 22:37 Dose: 650 mg Documented by: Albuterol/Ipratropium (Duoneb *Not For Prn Use*) 1 ampul IH Q6HRT [facility] Last Admin: 03/15/18 16:29 Dose: 1 ampul Documented by: Lipase/Protease/Amylase (Suresh Solis 10,500 Unit) 1 each FEEDTUBE PRN PRN PRN Reason: For Clogged Feeding Tube Epinephrine (Adrenalin) 1 mg IV Q5MIN [facility] Stop: 03/19/18 08:01 Famotidine (Pepcid) 20 mg IV BID [facility] Last Admin: 03/15/18 12:44 Dose: 20 mg Documented by: Fentanyl (Sublimaze) 50 mcg IV Q10MIN PRN PRN Reason: ANALGESIA Hydrophilic Ointment (Vaseline Lip Therapy) 1 applic TP Q2HR PRN PRN Reason: Dry Lips Cefepime HCl (Maxipime/Ns 2 Gm/100 Ml) 2 gm in 100 mls @ 200 mls/hr IV Q12HR [facility]; Protocol Last Admin: 03/15/18 12:43 Dose: 200 mls/hr Documented by: Levofloxacin/Dextrose (Levaquin 750mg/150ml) 750 mg in 150 mls @ 100 mls/hr IV Q24HR [facility]; Protocol Last Admin: 03/15/18 12:12 Dose: 150 mls/hr Documented by: Norepinephrine (Levophed Drip 4 Mg/Ns 250 Ml) 4 mg in 250 mls @ 7.5 mls/hr IV TITR [facility]; Protocol Last Titration: 03/15/18 15:57 Dose: 5.33 mcg/min, 20 mls/hr Documented by: Fentanyl Citrate (Fentanyl Drip Premix) 2,000 mcg in 100 mls @ 2.3 mls/hr IV TITR [facility]; Protocol Last Admin: 03/14/18 11:27 Dose: 2 mcg/kg/hr, 4.6 mls/hr Documented by: Vasopressin 20 unit/ Sodium (Chloride) 101 mls @ 9.09 mls/hr IV TITR [facility]; Protocol Last Admin: 03/15/18 15:49 Dose: 0 units/min, 0.03 mls/hr Documented by: Propofol (Diprivan 10 Mg/Ml) 1,000 mg in 100 mls @ 1.38 mls/hr IV TITR [facility]; Protocol Last Titration: 03/15/18 12:45 Dose: 0 mcg/kg/min, 0 mls/hr Documented by: Vancomycin HCl 750 mg/ Sodium (Chloride) 265 mls @ 166.667 mls/hr IV Q12H [facility] Last Admin: 03/15/18 12:59 Dose: 166.667 mls/hr Documented by: Epinephrine 16 mg/ Sodium (Chloride) 250 mls @ 1.88 mls/hr IV TITR [facility]; Protocol Last Titration: 03/15/18 15:35 Dose: 6 mcg/min, 5.63 mls/hr Documented by: Sodium Bicarbonate 150 meq/ (Dextrose) 1,150 mls @ 125 mls/hr IV DIRECT [facility] Dopamine HCl/Dextrose (Intropin Drip 800 Mg/D5w 250 Ml) 800 mg in 250 mls @ 1.898 mls/hr IV TITR [facility]; Protocol Last Admin: 03/15/18 15:55 Dose: 2 mcg/kg/min, 1.898 mls/hr Documented by: Insulin Human Lispro (Humalog) 0 unit SUB-Q Q6HR [facility]; Protocol Last Admin: 03/15/18 14:18 Dose: Not Given Documented by: Multi-Ingred Cream/Lotion/Oil/Oint (Artificial Tears Ophth Oint) 1 applic OU Q4HR PRN PRN Reason: Dry Eye(s) Simple Syrup (Simple Syrup) 15 ml FEEDTUBE PRN PRN PRN Reason: Hypoglycemia Simple Syrup (Simple Syrup) 30 ml FEEDTUBE PRN PRN PRN Reason: Hypoglycemia Sodium Bicarbonate (Sodium Bicarbonate) 325 mg FEEDTUBE PRN PRN PRN Reason: For Clogged Feeding Tube Sodium Chloride (Sodium Chloride Flush Syringe 10 Ml) 10 ml IV BID [facility] Last Admin: 03/15/18 11:23 Dose: 10 ml Documented by: Sodium Chloride (Sodium Chloride Flush Syringe 10 Ml) 10 ml IV PRN PRN PRN Reason: LINE FLUSH Review of Systems ROS unobtainable: due to endotracheal tube, due to mental status Physical Examination - Physical Exam Narrative exam: Physical Exam: Constitutional: intubated, unresponsive Head, Ears, Nose: Normocephalic, atraumatic. External ears, nose normal Eyes: Conjunctivae/corneas clear. No icterus. No ptosis. Neck: Supple, no meningeal signs Oral: intubated Cardiovascular: S1, S2 normal. Respiratory: Good air entry, clear to auscultation bilaterally GI: Soft, non-tender; bowel sounds hypoactive. Gtube +. No peritoneal signs Musculoskeletal: No pedal edema, no cyanosis. Skin: No rash or abscess Hem/Lymphatic: No palpable cervical or supraclavicular nodes. No lymphangitis Psych: no agitation Neurological: intubated, unresponsive - Constitutional Vitals: Vital Signs Temp Pulse Resp BP Pulse Ox 97.4 F L 124 H 30 H 146/103 90 03/15/18 12:00 03/15/18 17:10 03/15/18 17:10 03/15/18 17:10 03/15/18 16:00 Temperature -Last 24 Hours Temperature 97.4 F Temperature 96.6 F Temperature 99.7 F Temperature 98.3 F Temperature 98.9 F Results - Labs CBC & Chem 7: 03/15/18 07:30 03/15/18 07:30 Labs: Abnormal lab results 03/14/18 03/14/18 03/15/18 Range/Units 18:06 23:10 05:11 WBC (4.5-11.0) K/mm3 RBC (3.65-5.03) M/mm3 Hgb (10.1-14.3) gm/dl Hct (30.3-42.9) % MCV (79-97) fl MCH (28-32) pg RDW (13.2-15.2) % Plt Count (140-440) K/mm3 POC ABG pH (7.35-7.45) POC ABG pCO2 (35-45) POC ABG pO2 (80-105) Sodium 149 H (137-145) mmol/L Potassium 3.0 L D (3.6-5.0) mmol/L Chloride 111.1 H (98-107) mmol/L Glucose 255 H (65-100) mg/dL POC Glucose 212 H 226 H (70-105) Calcium 7.1 L (8.4-10.2) mg/dL Phosphorus (2.5-4.5) mg/dL Magnesium (1.7-2.3) mg/dL AST (5-40) units/L Total Protein (6.3-8.2) g/dL Albumin (3.9-5) g/dL Crossmatch 03/15/18 03/15/18 03/15/18 Range/Units 05:11 05:11 05:44 WBC 4.4 L (4.5-11.0) K/mm3 RBC 2.93 L (3.65-5.03) M/mm3 Hgb 6.7 L (10.1-14.3) gm/dl Hct 21.3 L (30.3-42.9) % MCV 73 L (79-97) fl MCH 23 L (28-32) pg RDW (13.2-15.2) % Plt Count 87 L (140-440) K/mm3 POC ABG pH 7.256 L (7.35-7.45) POC ABG pCO2 67.6 H (35-45) POC ABG pO2 45 L (80-105) Sodium (137-145) mmol/L Potassium (3.6-5.0) mmol/L Chloride (98-107) mmol/L Glucose (65-100) mg/dL POC Glucose 298 H (70-105) Calcium (8.4-10.2) mg/dL Phosphorus (2.5-4.5) mg/dL Magnesium (1.7-2.3) mg/dL AST (5-40) units/L Total Protein (6.3-8.2) g/dL Albumin (3.9-5) g/dL Crossmatch 03/15/18 03/15/18 03/15/18 Range/Units 05:54 07:30 07:30 WBC 3.1 L (4.5-11.0) K/mm3 RBC 2.67 L (3.65-5.03) M/mm3 Hgb 6.2 L (10.1-14.3) gm/dl Hct 20.5 L (30.3-42.9) % MCV 77 L (79-97) fl MCH 23 L (28-32) pg RDW 15.9 H (13.2-15.2) % Plt Count 90 L (140-440) K/mm3 POC ABG pH 7.182 L (7.35-7.45) POC ABG pCO2 74.8 H (35-45) POC ABG pO2 64 L (80-105) Sodium 152 H (137-145) mmol/L Potassium 3.2 L (3.6-5.0) mmol/L Chloride 109.7 H (98-107) mmol/L Glucose 316 H (65-100) mg/dL POC Glucose (70-105) Calcium 7.7 L (8.4-10.2) mg/dL Phosphorus 4.70 H (2.5-4.5) mg/dL Magnesium 3.90 H (1.7-2.3) mg/dL AST 169 H (5-40) units/L Total Protein 4.3 L D (6.3-8.2) g/dL Albumin 1.4 L (3.9-5) g/dL Crossmatch 03/15/18 03/15/18 Range/Units 10:30 12:22 WBC (4.5-11.0) K/mm3 RBC (3.65-5.03) M/mm3 Hgb (10.1-14.3) gm/dl Hct (30.3-42.9) % MCV (79-97) fl MCH (28-32) pg RDW (13.2-15.2) % Plt Count (140-440) K/mm3 POC ABG pH (7.35-7.45) POC ABG pCO2 (35-45) POC ABG pO2 (80-105) Sodium (137-145) mmol/L Potassium (3.6-5.0) mmol/L Chloride (98-107) mmol/L Glucose (65-100) mg/dL POC Glucose 179 H (70-105) Calcium (8.4-10.2) mg/dL Phosphorus (2.5-4.5) mg/dL Magnesium (1.7-2.3) mg/dL AST (5-40) units/L Total Protein (6.3-8.2) g/dL Albumin (3.9-5) g/dL Crossmatch See Detail - Imaging and Cardiology Chest x-ray: report reviewed, image reviewed CT scan - chest: report reviewed, image reviewed (bilateral pneumonia) Assessment and Plan Cultures: 04/11/2017 blood culture: No growth 03/11/2018 urine culture: No growth 03/12/2018 sputum culture: MSSA A/P: 57-year-old female with HTN, debility, contractures, half-way resident, schizophrenia and seizure disorder, admitted with: 1) Refractory septic shock: source is probably pneumonia based on CT scan, urine culture negative. Sputum culture growing MSSA. Patient is on appropriate antibiotics for now: Cefepime and vancomycin. Levofloxacin is not needed, will discontinue. Overall prognosis is extremely poor with the patient currently needing 3 pressors. 2) Acute respiratory failure: on vent, 100% FiO2. 3) Cardiac arrest 3 4) Acute encephalopathy 5) Acute renal failure: secondary to shock Recs: -Patient is on appropriate antibiotics for now: Cefepime and vancomycin. -Levofloxacin is not needed, will discontinue. -Overall prognosis is extremely poor with the patient currently needing 3 pressors. Will follow. Daria Pinzon MD [facility] C: [phone] O: [phone] F: [phone]
[2018-03-15 23:08] LABS: Hematocrit 28.9 % (30.3-42.9); Hemoglobin 9.4 gm/dl (10.1-14.3); Mean Corpuscular HGB Conc 33 % (30-34); Mean Corpuscular Volume 77 fl (79-97); Red Blood Count 3.75 M/mm3 (3.65-5.03); Red Cell Distribution Width 17.8 % (13.2-15.2)
[2018-03-15 23:21] LABS: Calcium 6.8 mg/dL (8.4-10.2)
[2018-03-16] MEDS: Vasostrict 20 UNIT in NACL 0.9% 100 ML IV SCH (00:02)
[2018-03-16] MEDS: HumaLOG SUB-Q SCH ×4 (00:03→17:50)
[2018-03-16 00:08] LABS: Platelet Count 37 K/mm3 (140-440)
[2018-03-16] MEDS: VANCOMYCIN 750 MG in NACL 0.9% 250ML 250 ML IV SCH (00:53)
[2018-03-16] MEDS: SODIUM BICARBONATE 150 MEQ in D5W 1,000 ML IV SCH ×2 (01:35→19:37)
[2018-03-16] MEDS: DUONEB *Not for PRN Use IH SCH ×4 (02:32→20:02)
--- NOTE | 2018-03-16 02:49 | XRay Report ---
FINAL REPORT PROCEDURE: XR CHEST 1V AP TECHNIQUE: Chest radiograph anteroposterior view. CPT 48512 HISTORY: follow up respiratory failure COMPARISON: 03/15/2018 FINDINGS: Heart: Normal. Mediastinum/Vessels: Normal. Lungs/Pleural space: Scattered infiltrates both lungs are slightly increased since prior study. No ef fusion or pneumothorax. Bony thorax: No acute osseous abnormality. Life support devices: The endotracheal tube ends 4 centimeters above the mike. A left PICC catheter ends in the SVC. IMPRESSION: Slightly increased bilateral scattered infiltrates. The endotracheal tube and left PICC catheter are properly positioned..
[2018-03-16 03:17] LABS: Hematocrit 27.3 % (30.3-42.9); Hemoglobin 8.8 gm/dl (10.1-14.3); Mean Corpuscular HGB Conc 32 % (30-34); Mean Corpuscular Volume 77 fl (79-97); Red Blood Count 3.55 M/mm3 (3.65-5.03)
[2018-03-16 03:22] LABS: Platelet Count 24 K/mm3 (140-440)
[2018-03-16 03:33] LABS: Calcium 6.3 mg/dL (8.4-10.2)
--- NOTE | 2018-03-16 08:58 | Progress Note ---
Assessment and Plan Cardiopulonary arrest with ROSC Severe sepsis with septic shock and MODS Acute hypoxemic respiratory failure on MVS ARDS, severe Lactic acidosis Acute hypoxemic respiratory failure Bilateral nodular alveolar infiltrates Cachexia Acute encephalopathy ( toxic, metabolic) Moderate to severe protein calorie malnutrition Thrombocytopenia ( probably secondary to sepsis and medications) -VAP bundle addressed -Transfuse as indicated for HgB<7g/dL -ARDS net protocol, permissive hypercapnia with lung protective strategies. -Severe sepsis protocol -Bicarbonate infusion - Wean vasopressor support as indicated for MAP >65 -prn ABG -Empiric antibiotic therapy -ID consult notes reviewed -VTE prophylaxis with SCDs -Aspiration precautions -Glycemic control, keep glucose between 140 and 180mg/dL -Strict intake and output in this critically ill patient CONDITION: CRITICAL CODE STATUS: FULL CODE PROGNOSIS: GUARDED. Discussed care plan with RT RN The high probability of a clinically significant, sudden or life threatening deterioration of the [cardiac, renal, neurology, respiratory] system(s) required my full and direct attention, intervention and personal management. The aggregate critical care time was [45] minutes. This time is in addition to time spent performing reported procedures but includes the following: [x] Data Review and interpretation [x] Patient assessment and monitoring of vital signs [x] Documentation [x] Medication orders and management Subjective Date of service: 03/16/18 Principal diagnosis: Acute Hypoxemic Respiratory Failure; Severe Sepsis with Shock; ARDS; UTI Interval history: Patient is seen today for: Acute Hypoxemic Respiratory Failure; Severe Sepsis with Shock; ARDS; UTI; Acute Encephalopathy: s/p cardiopulmonary arrest x3 with ROSC Seen and examined at bedside; 24hour events reviewed; nursing and respiratory care staff consulted; no new overnight events reported to me: remains on multiple vasopressors, mechanical ventilatory support PEEP 10 and FIO2 100%. Acceptable airway pressures, no clinical evidence of barotrauma Remains critically ill, [id number] off all sedation Objective Vital Signs - 12hr 03/15/18 03/15/18 03/15/18 21:00 21:10 21:20 Temperature Pulse Rate 126 H 124 H 124 H Pulse Rate [ Anterior Bilateral Throughout] Pulse Rate [ From Monitor] Respiratory 30 H 30 H 30 H Rate Respiratory Rate [Anterior Bilateral Throughout] Blood Pressure 189/120 189/120 189/120 O2 Sat by Pulse 88 91 90 Oximetry 03/15/18 03/15/18 03/15/18 21:30 21:40 21:50 Temperature Pulse Rate 124 H 123 H 123 H Pulse Rate [ Anterior Bilateral Throughout] Pulse Rate [ From Monitor] Respiratory 30 H 30 H 30 H Rate Respiratory Rate [Anterior Bilateral Throughout] Blood Pressure 152/105 152/105 141/89 O2 Sat by Pulse 91 93 92 Oximetry 03/15/18 03/15/18 03/15/18 22:00 22:10 22:20 Temperature Pulse Rate 124 H 123 H 123 H Pulse Rate [ Anterior Bilateral Throughout] Pulse Rate [ From Monitor] Respiratory 30 H 30 H 30 H Rate Respiratory Rate [Anterior Bilateral Throughout] Blood Pressure 119/88 119/88 119/88 O2 Sat by Pulse 93 93 93 Oximetry 03/15/18 03/15/18 03/15/18 22:30 22:40 22:46 Temperature Pulse Rate 122 H 123 H 122 H Pulse Rate [ Anterior Bilateral Throughout] Pulse Rate [ From Monitor] Respiratory 30 H 30 H Rate Respiratory Rate [Anterior Bilateral Throughout] Blood Pressure 107/79 107/79 114/60 O2 Sat by Pulse 93 93 92 Oximetry 03/15/18 03/15/18 03/15/18 22:50 23:00 23:10 Temperature Pulse Rate 122 H 120 H 124 H Pulse Rate [ Anterior Bilateral Throughout] Pulse Rate [ From Monitor] Respiratory 30 H 30 H 30 H Rate Respiratory Rate [Anterior Bilateral Throughout] Blood Pressure 107/76 107/76 98/71 O2 Sat by Pulse 93 93 92 Oximetry 03/15/18 03/15/18 03/15/18 23:15 23:20 23:30 Temperature Pulse Rate 124 H 124 H 124 H Pulse Rate [ Anterior Bilateral Throughout] Pulse Rate [ From Monitor] Respiratory 30 H 30 H 30 H Rate Respiratory Rate [Anterior Bilateral Throughout] Blood Pressure 115/82 98/71 118/81 O2 Sat by Pulse 92 91 92 Oximetry 03/15/18 03/15/18 03/15/18 23:40 23:48 23:50 Temperature Pulse Rate 124 H 124 H 124 H Pulse Rate [ Anterior Bilateral Throughout] Pulse Rate [ From Monitor] Respiratory 30 H 30 H 30 H Rate Respiratory Rate [Anterior Bilateral Throughout] Blood Pressure 118/81 115/82 115/82 O2 Sat by Pulse 92 91 91 Oximetry 03/16/18 03/16/18 03/16/18 00:00 00:10 00:20 Temperature 96.5 F L Pulse Rate 118 H 124 H 124 H Pulse Rate [ Anterior Bilateral Throughout] Pulse Rate [ 122 H From Monitor] Respiratory 30 H 30 H 30 H Rate Respiratory Rate [Anterior Bilateral Throughout] Blood Pressure 105/68 113/82 123/86 O2 Sat by Pulse 92 91 89 Oximetry 03/16/18 03/16/18 03/16/18 00:30 00:40 00:50 Temperature Pulse Rate 124 H 123 H 123 H Pulse Rate [ Anterior Bilateral Throughout] Pulse Rate [ From Monitor] Respiratory 30 H 30 H 30 H Rate Respiratory Rate [Anterior Bilateral Throughout] Blood Pressure 122/83 122/83 123/86 O2 Sat by Pulse 89 89 89 Oximetry 03/16/18 03/16/18 03/16/18 01:00 01:10 01:20 Temperature Pulse Rate 123 H 122 H 121 H Pulse Rate [ Anterior Bilateral Throughout] Pulse Rate [ From Monitor] Respiratory 30 H 30 H 30 H Rate Respiratory Rate [Anterior Bilateral Throughout] Blood Pressure 135/90 135/90 123/81 O2 Sat by Pulse 90 90 91 Oximetry 03/16/18 03/16/18 03/16/18 01:30 01:40 01:50 Temperature Pulse Rate 121 H 120 H 118 H Pulse Rate [ Anterior Bilateral Throughout] Pulse Rate [ From Monitor] Respiratory 30 H 30 H 30 H Rate Respiratory Rate [Anterior Bilateral Throughout] Blood Pressure 132/84 132/84 117/80 O2 Sat by Pulse 91 91 91 Oximetry 03/16/18 03/16/18 03/16/18 02:00 02:10 02:20 Temperature Pulse Rate 118 H 118 H 116 H Pulse Rate [ Anterior Bilateral Throughout] Pulse Rate [ From Monitor] Respiratory 30 H 30 H 30 H Rate Respiratory Rate [Anterior Bilateral Throughout] Blood Pressure 115/75 115/75 111/72 O2 Sat by Pulse 91 91 91 Oximetry 03/16/18 03/16/18 03/16/18 02:30 02:33 02:40 Temperature Pulse Rate 118 H 120 H Pulse Rate [ 117 H Anterior Bilateral Throughout] Pulse Rate [ From Monitor] Respiratory 30 H 30 H Rate Respiratory 30 H Rate [Anterior Bilateral Throughout] Blood Pressure 105/68 105/68 O2 Sat by Pulse 92 84 Oximetry 03/16/18 03/16/18 03/16/18 02:50 03:00 03:10 Temperature Pulse Rate 121 H 120 H 124 H Pulse Rate [ Anterior Bilateral Throughout] Pulse Rate [ From Monitor] Respiratory 30 H 30 H 30 H Rate Respiratory Rate [Anterior Bilateral Throughout] Blood Pressure 130/86 144/100 144/100 O2 Sat by Pulse 83 L 85 87 Oximetry 03/16/18 03/16/18 03/16/18 03:20 03:30 03:40 Temperature Pulse Rate 122 H 122 H 122 H Pulse Rate [ Anterior Bilateral Throughout] Pulse Rate [ From Monitor] Respiratory 30 H 30 H 30 H Rate Respiratory Rate [Anterior Bilateral Throughout] Blood Pressure 168/108 158/103 158/103 O2 Sat by Pulse 88 84 88 Oximetry 03/16/18 03/16/18 03/16/18 03:50 04:00 04:10 Temperature 97.7 F Pulse Rate 121 H 117 H 117 H Pulse Rate [ Anterior Bilateral Throughout] Pulse Rate [ 117 H From Monitor] Respiratory 30 H 30 H 30 H Rate Respiratory Rate [Anterior Bilateral Throughout] Blood Pressure 167/105 110/73 110/73 O2 Sat by Pulse 93 94 94 Oximetry 03/16/18 03/16/18 03/16/18 04:20 04:30 04:40 Temperature Pulse Rate 117 H 118 H 120 H Pulse Rate [ Anterior Bilateral Throughout] Pulse Rate [ From Monitor] Respiratory 30 H 30 H 30 H Rate Respiratory Rate [Anterior Bilateral Throughout] Blood Pressure 98/60 88/61 88/61 O2 Sat by Pulse 94 95 95 Oximetry 03/16/18 03/16/18 03/16/18 04:50 05:00 05:04 Temperature Pulse Rate 121 H 119 H 120 H Pulse Rate [ Anterior Bilateral Throughout] Pulse Rate [ From Monitor] Respiratory 30 H 30 H Rate Respiratory Rate [Anterior Bilateral Throughout] Blood Pressure 96/69 110/67 110/67 O2 Sat by Pulse 95 95 95 Oximetry 03/16/18 03/16/18 03/16/18 05:10 05:20 05:30 Temperature Pulse Rate 120 H 120 H 120 H Pulse Rate [ Anterior Bilateral Throughout] Pulse Rate [ From Monitor] Respiratory 30 H 30 H 30 H Rate Respiratory Rate [Anterior Bilateral Throughout] Blood Pressure 110/67 119/74 118/74 O2 Sat by Pulse 95 95 94 Oximetry 03/16/18 03/16/18 03/16/18 05:40 05:50 06:00 Temperature Pulse Rate 120 H 120 H 120 H Pulse Rate [ Anterior Bilateral Throughout] Pulse Rate [ From Monitor] Respiratory 30 H 30 H 30 H Rate Respiratory Rate [Anterior Bilateral Throughout] Blood Pressure 118/74 117/73 119/80 O2 Sat by Pulse 95 94 94 Oximetry 03/16/18 03/16/18 03/16/18 06:10 06:20 06:30 Temperature Pulse Rate 120 H 120 H 120 H Pulse Rate [ Anterior Bilateral Throughout] Pulse Rate [ From Monitor] Respiratory 30 H 30 H 30 H Rate Respiratory Rate [Anterior Bilateral Throughout] Blood Pressure 119/80 126/75 124/75 O2 Sat by Pulse 93 93 93 Oximetry 03/16/18 03/16/18 03/16/18 06:40 06:50 07:00 Temperature Pulse Rate 120 H 118 H 120 H Pulse Rate [ Anterior Bilateral Throughout] Pulse Rate [ From Monitor] Respiratory 30 H 30 H 30 H Rate Respiratory Rate [Anterior Bilateral Throughout] Blood Pressure 124/75 128/77 113/77 O2 Sat by Pulse 93 93 93 Oximetry 03/16/18 03/16/18 03/16/18 07:10 07:20 07:30 Temperature Pulse Rate 120 H 119 H 119 H Pulse Rate [ Anterior Bilateral Throughout] Pulse Rate [ From Monitor] Respiratory 30 H 30 H 30 H Rate Respiratory Rate [Anterior Bilateral Throughout] Blood Pressure 113/77 123/78 135/75 O2 Sat by Pulse 93 93 94 Oximetry 03/16/18 03/16/18 03/16/18 07:40 07:48 07:50 Temperature Pulse Rate 119 H 119 H 119 H Pulse Rate [ Anterior Bilateral Throughout] Pulse Rate [ From Monitor] Respiratory 30 H 30 H Rate Respiratory Rate [Anterior Bilateral Throughout] Blood Pressure 135/75 126/74 126/74 O2 Sat by Pulse 94 94 94 Oximetry 03/16/18 03/16/18 03/16/18 07:56 08:00 08:10 Temperature 99.2 F Pulse Rate 121 H 121 H Pulse Rate [ 120 H Anterior Bilateral Throughout] Pulse Rate [ 119 H From Monitor] Respiratory 30 H 30 H Rate Respiratory 30 H Rate [Anterior Bilateral Throughout] Blood Pressure 122/83 122/83 O2 Sat by Pulse 88 89 Oximetry 03/16/18 03/16/18 08:20 08:30 Temperature Pulse Rate 121 H 120 H Pulse Rate [ Anterior Bilateral Throughout] Pulse Rate [ From Monitor] Respiratory 30 H 30 H Rate Respiratory Rate [Anterior Bilateral Throughout] Blood Pressure 146/91 147/90 O2 Sat by Pulse 89 89 Oximetry Constitutional: appears uncomfortable, other (middle aged chronically ill looking AAF; normocephalic , unresponsive, pupils dilated, not responding to light ) Eyes: non-icteric ENT: oropharynx moist, other (ETT 23 cm YOLANDA) Neck: supple, no lymphadenopathy, no JVD, other (no thyromegaly) Effort: mildly labored Ascultation: Bilateral: diminished breath sounds, rhonchi Percussion: Bilateral: not dull Cardiovascular: regular rate and rhythm, other (S1,S2) Gastrointestinal: normoactive bowel sounds, soft, non-tender, non-distended Integumentary: other (poor turgor, anarsaca) Extremities: no cyanosis, no edema, pulses normal, no ischemia or petechiae Neurologic: unable to assess, other (unresponsive) Psychiatric: other (encephalopathic) CBC and BMP: 03/16/18 03:00 03/16/18 03:00 ABG, PT/INR, D-dimer: ABG POC ABG pH 7.200 (7.35-7.45) L 03/16/18 05:09 POC ABG pCO2 61.0 (35-45) H 03/16/18 05:09 POC ABG pO2 65 (80-105) L 03/16/18 05:09 POC ABG HCO3 23.9 03/16/18 05:09 POC ABG Total CO2 26 03/16/18 05:09 POC ABG O2 Sat 86 03/16/18 05:09 Abnormal lab findings: Abnormal Labs 03/11/18 03/11/18 03/11/18 14:20 14:20 14:20 WBC RBC Hgb 10.0 L Hct MCV 74 L MCH 23 L RDW Plt Count Seg Neuts % (Manual) 89.0 H Lymphocytes % (Manual) 8.0 L Nucleated RBC % Lymphocytes # (Manual) 0.4 L POC ABG pH POC ABG pCO2 POC ABG pO2 Sodium 160 H Potassium Chloride 118.4 H BUN 64 H Creatinine 1.5 H Glucose 592 H* POC Glucose Lactic Acid 7.20 H* Calcium Phosphorus Magnesium AST 60 H Total Creatine Kinase 1434 H Total Protein Albumin 2.0 L Urine WBC (Auto) Vancomycin Trough Crossmatch 03/11/18 03/11/18 03/11/18 14:50 15:04 15:08 WBC RBC Hgb Hct MCV MCH RDW Plt Count Seg Neuts % (Manual) Lymphocytes % (Manual) Nucleated RBC % Lymphocytes # (Manual) POC ABG pH POC ABG pCO2 POC ABG pO2 61 L Sodium Potassium Chloride BUN Creatinine Glucose POC Glucose Lactic Acid 6.60 H* Calcium Phosphorus Magnesium AST Total Creatine Kinase Total Protein Albumin Urine WBC (Auto) 7.0 H Vancomycin Trough Crossmatch 03/11/18 03/11/18 03/11/18 16:38 16:40 19:36 WBC RBC Hgb Hct MCV MCH RDW Plt Count Seg Neuts % (Manual) Lymphocytes % (Manual) Nucleated RBC % Lymphocytes # (Manual) POC ABG pH POC ABG pCO2 POC ABG pO2 Sodium Potassium Chloride BUN Creatinine Glucose POC Glucose 314 H Lactic Acid 5.40 H* 3.70 H* Calcium Phosphorus Magnesium AST Total Creatine Kinase Total Protein Albumin Urine WBC (Auto) Vancomycin Trough Crossmatch 03/11/18 03/11/18 03/11/18 19:36 19:36 20:33 WBC RBC Hgb Hct MCV MCH RDW Plt Count Seg Neuts % (Manual) Lymphocytes % (Manual) Nucleated RBC % Lymphocytes # (Manual) POC ABG pH POC ABG pCO2 POC ABG pO2 Sodium 165 H* Potassium 3.1 L Chloride 128.9 H BUN 45 H Creatinine Glucose 230 H POC Glucose Lactic Acid 3.70 H* 4.00 H* Calcium 7.4 L Phosphorus Magnesium AST Total Creatine Kinase Total Protein Albumin Urine WBC (Auto) Vancomycin Trough Crossmatch 03/11/18 03/11/18 03/11/18 20:53 23:37 23:42 WBC RBC Hgb Hct MCV MCH RDW Plt Count Seg Neuts % (Manual) Lymphocytes % (Manual) Nucleated RBC % Lymphocytes # (Manual) POC ABG pH 7.298 L POC ABG pCO2 POC ABG pO2 65 L Sodium Potassium Chloride BUN Creatinine Glucose POC Glucose 235 H Lactic Acid 2.30 H* Calcium Phosphorus Magnesium AST Total Creatine Kinase Total Protein Albumin Urine WBC (Auto) Vancomycin Trough Crossmatch 03/12/18 03/12/18 03/12/18 01:44 03:38 05:15 WBC RBC Hgb Hct MCV MCH RDW Plt Count Seg Neuts % (Manual) Lymphocytes % (Manual) Nucleated RBC % Lymphocytes # (Manual) POC ABG pH POC ABG pCO2 POC ABG pO2 Sodium Potassium Chloride BUN Creatinine Glucose POC Glucose 303 H Lactic Acid 2.30 H* 2.40 H* Calcium Phosphorus Magnesium AST Total Creatine Kinase Total Protein Albumin Urine WBC (Auto) Vancomycin Trough Crossmatch 03/12/18 03/12/18 03/12/18 08:22 11:14 18:23 WBC RBC Hgb Hct MCV MCH RDW Plt Count Seg Neuts % (Manual) Lymphocytes % (Manual) Nucleated RBC % Lymphocytes # (Manual) POC ABG pH POC ABG pCO2 31.8 L POC ABG pO2 48 L Sodium Potassium Chloride BUN Creatinine Glucose POC Glucose 209 H 255 H Lactic Acid Calcium Phosphorus Magnesium AST Total Creatine Kinase Total Protein Albumin Urine WBC (Auto) Vancomycin Trough Crossmatch 03/12/18 03/12/18 03/13/18 19:06 23:45 03:00 WBC RBC 3.35 L Hgb 7.7 L Hct 24.8 L D MCV 74 L MCH 23 L RDW Plt Count 139 L Seg Neuts % (Manual) 75.0 H Lymphocytes % (Manual) 8.0 L Nucleated RBC % 1.0 H Lymphocytes # (Manual) 0.4 L POC ABG pH 7.220 L POC ABG pCO2 57.3 H POC ABG pO2 52 L Sodium Potassium Chloride BUN Creatinine Glucose POC Glucose 227 H Lactic Acid Calcium Phosphorus Magnesium AST Total Creatine Kinase Total Protein Albumin Urine WBC (Auto) Vancomycin Trough Crossmatch 03/13/18 03/13/18 03/13/18 03:00 05:14 05:47 WBC RBC Hgb Hct MCV MCH RDW Plt Count Seg Neuts % (Manual) Lymphocytes % (Manual) Nucleated RBC % Lymphocytes # (Manual) POC ABG pH 7.187 L POC ABG pCO2 65.6 H POC ABG pO2 Sodium 157 H Potassium 2.6 L* Chloride 120.3 H BUN 18 H Creatinine Glucose 314 H POC Glucose 364 H Lactic Acid Calcium 7.4 L Phosphorus Magnesium AST Total Creatine Kinase Total Protein Albumin Urine WBC (Auto) Vancomycin Trough Crossmatch 03/13/18 03/13/18 03/13/18 12:32 18:08 23:31 WBC RBC Hgb Hct MCV MCH RDW Plt Count Seg Neuts % (Manual) Lymphocytes % (Manual) Nucleated RBC % Lymphocytes # (Manual) POC ABG pH POC ABG pCO2 POC ABG pO2 Sodium Potassium Chloride BUN Creatinine Glucose POC Glucose 304 H 169 H 125 H Lactic Acid Calcium Phosphorus Magnesium AST Total Creatine Kinase Total Protein Albumin Urine WBC (Auto) Vancomycin Trough Crossmatch 03/14/18 03/14/18 03/14/18 04:56 04:58 04:58 WBC RBC 3.16 L Hgb 7.3 L Hct 23.0 L MCV 73 L MCH 23 L RDW Plt Count 114 L Seg Neuts % (Manual) 83.0 H Lymphocytes % (Manual) 7.0 L Nucleated RBC % Lymphocytes # (Manual) 0.4 L POC ABG pH POC ABG pCO2 POC ABG pO2 Sodium 150 H Potassium 2.4 L* Chloride 111.0 H BUN Creatinine 0.5 L Glucose 139 H POC Glucose 185 H Lactic Acid Calcium 7.2 L Phosphorus Magnesium AST Total Creatine Kinase Total Protein Albumin Urine WBC (Auto) Vancomycin Trough Crossmatch 03/14/18 03/14/18 03/14/18 04:58 05:01 12:03 WBC RBC Hgb Hct MCV MCH RDW Plt Count Seg Neuts % (Manual) Lymphocytes % (Manual) Nucleated RBC % Lymphocytes # (Manual) POC ABG pH POC ABG pCO2 POC ABG pO2 140 H Sodium Potassium Chloride BUN Creatinine Glucose POC Glucose 212 H Lactic Acid Calcium Phosphorus Magnesium 1.30 L AST Total Creatine Kinase Total Protein Albumin Urine WBC (Auto) Vancomycin Trough Crossmatch 03/14/18 03/14/18 03/15/18 18:06 23:10 05:11 WBC RBC Hgb Hct MCV MCH RDW Plt Count Seg Neuts % (Manual) Lymphocytes % (Manual) Nucleated RBC % Lymphocytes # (Manual) POC ABG pH POC ABG pCO2 POC ABG pO2 Sodium 149 H Potassium 3.0 L D Chloride 111.1 H BUN Creatinine Glucose 255 H POC Glucose 212 H 226 H Lactic Acid Calcium 7.1 L Phosphorus Magnesium AST Total Creatine Kinase Total Protein Albumin Urine WBC (Auto) Vancomycin Trough Crossmatch 03/15/18 03/15/18 03/15/18 05:11 05:11 05:44 WBC 4.4 L RBC 2.93 L Hgb 6.7 L Hct 21.3 L MCV 73 L MCH 23 L RDW Plt Count 87 L Seg Neuts % (Manual) Lymphocytes % (Manual) Nucleated RBC % Lymphocytes # (Manual) POC ABG pH 7.256 L POC ABG pCO2 67.6 H POC ABG pO2 45 L Sodium Potassium Chloride BUN Creatinine Glucose POC Glucose 298 H Lactic Acid Calcium Phosphorus Magnesium AST Total Creatine Kinase Total Protein Albumin Urine WBC (Auto) Vancomycin Trough Crossmatch 03/15/18 03/15/18 03/15/18 05:54 07:30 07:30 WBC 3.1 L RBC 2.67 L Hgb 6.2 L Hct 20.5 L MCV 77 L MCH 23 L RDW 15.9 H Plt Count 90 L Seg Neuts % (Manual) Lymphocytes % (Manual) Nucleated RBC % Lymphocytes # (Manual) POC ABG pH 7.182 L POC ABG pCO2 74.8 H POC ABG pO2 64 L Sodium 152 H Potassium 3.2 L Chloride 109.7 H BUN Creatinine Glucose 316 H POC Glucose Lactic Acid Calcium 7.7 L Phosphorus 4.70 H Magnesium 3.90 H AST 169 H Total Creatine Kinase Total Protein 4.3 L D Albumin 1.4 L Urine WBC (Auto) Vancomycin Trough Crossmatch 03/15/18 03/15/18 03/15/18 10:30 12:22 14:49 WBC RBC Hgb Hct MCV MCH RDW Plt Count Seg Neuts % (Manual) Lymphocytes % (Manual) Nucleated RBC % Lymphocytes # (Manual) POC ABG pH 7.008 L POC ABG pCO2 68.0 H POC ABG pO2 51 L Sodium Potassium Chloride BUN Creatinine Glucose POC Glucose 179 H Lactic Acid Calcium Phosphorus Magnesium AST Total Creatine Kinase Total Protein Albumin Urine WBC (Auto) Vancomycin Trough Crossmatch See Detail 03/15/18 03/15/18 03/15/18 18:15 22:55 23:00 WBC RBC Hgb 9.4 L D Hct 28.9 L D MCV 77 L MCH 25 L RDW 17.8 H Plt Count 37 L Seg Neuts % (Manual) Lymphocytes % (Manual) Nucleated RBC % Lymphocytes # (Manual) POC ABG pH 7.140 L POC ABG pCO2 61.0 H POC ABG pO2 60 L Sodium Potassium Chloride BUN Creatinine Glucose POC Glucose 225 H Lactic Acid Calcium Phosphorus Magnesium AST Total Creatine Kinase Total Protein Albumin Urine WBC (Auto) Vancomycin Trough Crossmatch 03/15/18 03/15/18 03/16/18 23:00 23:31 00:30 WBC RBC Hgb Hct MCV MCH RDW Plt Count Seg Neuts % (Manual) Lymphocytes % (Manual) Nucleated RBC % Lymphocytes # (Manual) POC ABG pH POC ABG pCO2 POC ABG pO2 Sodium 148 H Potassium Chloride 110.2 H BUN 30 H Creatinine Glucose 355 H POC Glucose 368 H Lactic Acid Calcium 6.8 L Phosphorus Magnesium AST Total Creatine Kinase Total Protein Albumin Urine WBC (Auto) Vancomycin Trough 23.7 H Crossmatch 03/16/18 03/16/18 03/16/18 03:00 03:00 05:09 WBC RBC 3.55 L Hgb 8.8 L Hct 27.3 L MCV 77 L MCH 25 L RDW 18.0 H Plt Count 24 L Seg Neuts % (Manual) Lymphocytes % (Manual) Nucleated RBC % Lymphocytes # (Manual) POC ABG pH 7.200 L POC ABG pCO2 61.0 H POC ABG pO2 65 L Sodium Potassium Chloride 107.2 H BUN 30 H Creatinine 1.3 H Glucose 377 H POC Glucose Lactic Acid Calcium 6.3 L Phosphorus Magnesium AST Total Creatine Kinase Total Protein Albumin Urine WBC (Auto) Vancomycin Trough Crossmatch 03/16/18 05:52 WBC RBC Hgb Hct MCV MCH RDW Plt Count Seg Neuts % (Manual) Lymphocytes % (Manual) Nucleated RBC % Lymphocytes # (Manual) POC ABG pH POC ABG pCO2 POC ABG pO2 Sodium Potassium Chloride BUN Creatinine Glucose POC Glucose 366 H Lactic Acid Calcium Phosphorus Magnesium AST Total Creatine Kinase Total Protein Albumin Urine WBC (Auto) Vancomycin Trough Crossmatch Chest x-ray: image reviewed Allied health notes reviewed: RT
[2018-03-16] MEDS ORDERED: VANCOMYCIN PHARMACY TO DOSE IV SCH (09:00)
--- NOTE | 2018-03-16 10:39 | Progress Note ---
Assessment and Plan Assessment and plan: Cardiopulmonary arrest today x 3 on morning of 03/15/17. On 03/15/17, Dilan rose called at 07:04, for asystole after bradycardia, code run per ACLS protocol. She had CPR done and was given multiple doses of E pinephrine, Bicarb, Atropine. Patient resuscitated, got pulse 07:18. Cardiac arrest again at 07:33, resuscitated at 07:48 after CPR and multiple doses of Epinephrine. cardiac arrest at 08:49 again and she was again resuscitated, regained pulse at 09:01 Later discussed with Pulmonology. Sepsis/septic shock. Continue IV antibiotics. Cont. pressors to maintain MAP>65. patient on levophed, vasopressin, Dopamine Patient with elevated lactic acid UTI. Acute hypoxemic respiratory failure. Pulm following Anoxic encephalopathy after 3 episodes of cardiopulm arrest. consulted Neurology discussed with Dr. Geoffrey CHAVEZ. Cont current abx. F/U serial CXR Diabetes mellitus type 2. Continue Accu-Cheks and sliding scale insulin. Toxic metabolic encephalopathy. Continue to treat underlying causes. Hypernatremia. Continue free water and D5W IV fluids. Hypokalemia. Replaced hypomagnesemia. replaced Acute renal failure. Etiology likely secondary to vasomotor nephropathy. However, patient may also have acute kidney injury secondary to ATN/sepsis. Renal and bladder US normal Full code status Very Poor prognosis Discussed with daughter. She wants everything done-full code. History Interval history: Patient had cardiopulmonary arrest X 3 yesterday Now unresponsive Hospitalist Physical - Physical exam Narrative exam: GEN: Not in acute distress, intubated HEENT: Normocephalic, atraumatic, Neck: supple, No JVD Lungs: Clear to auscultation, no wheeze Heart:S1 and S2 regular, no murmurs, rubs or gallop, Abd:soft, non tender, non distended, normal bowel sounds Ext: No edema, no clubbing or cyanosis Neuro: Intubated, unresponsive, pupils fixed, no corneal reflex - Constitutional Vitals: Temp Pulse Resp BP Pulse Ox 99.2 F 120 H 30 H 133/79 90 03/16/18 08:00 03/16/18 09:20 03/16/18 09:20 03/16/18 09:20 03/16/18 09:20 General appearance: Present: severe distress Results - Labs CBC & Chem 7: 03/16/18 03:00 03/16/18 03:00 Labs: Laboratory Last Values WBC 5.0 K/mm3 (4.5-11.0) 03/16/18 03:00 RBC 3.55 M/mm3 (3.65-5.03) L 03/16/18 03:00 Hgb 8.8 gm/dl (10.1-14.3) L 03/16/18 03:00 Hct 27.3 % (30.3-42.9) L 03/16/18 03:00 MCV 77 fl (79-97) L 03/16/18 03:00 MCH 25 pg (28-32) L 03/16/18 03:00 MCHC 32 % (30-34) 03/16/18 03:00 RDW 18.0 % (13.2-15.2) H 03/16/18 03:00 Plt Count 24 K/mm3 (140-440) L 03/16/18 03:00 Lymph % (Auto) Malter Operator 03/11/18 14:20 Page % (Auto) Malter Operator 03/11/18 14:20 Eos % (Auto) Malter Operator 03/11/18 14:20 Baso % (Auto) Malter Operator 03/11/18 14:20 Lymph # Malter Operator 03/11/18 14:20 Page # Malter Operator 03/11/18 14:20 Eos # Malter Operator 03/11/18 14:20 Baso # Malter Operator 03/11/18 14:20 Add Manual Diff Complete 03/14/18 04:58 Total Counted 100 03/14/18 04:58 Seg Neutrophils % Malter Operator 03/14/18 04:58 Seg Neuts % (Manual) 83.0 % (40.0-70.0) H 03/14/18 04:58 Band Neutrophils % 8.0 % 03/14/18 04:58 Lymphocytes % (Manual) 7.0 % (13.4-35.0) L 03/14/18 04:58 Reactive Lymphs % (Man) 0 % 03/14/18 04:58 Monocytes % (Manual) 1.0 % (0.0-7.3) 03/14/18 04:58 Eosinophils % (Manual) 1.0 % (0.0-4.3) 03/14/18 04:58 Basophils % (Manual) 0 % (0.0-1.8) 03/14/18 04:58 Metamyelocytes % 0 % 03/14/18 04:58 Myelocytes % 0 % 03/14/18 04:58 Promyelocytes % 0 % 03/14/18 04:58 Blast Cells % 0 % 03/14/18 04:58 Nucleated RBC % Not Reportable 03/14/18 04:58 Seg Neutrophils # Malter Operator 03/11/18 14:20 Seg Neutrophils # Man 4.9 K/mm3 (1.8-7.7) 03/14/18 04:58 Band Neutrophils # 0.5 K/mm3 03/14/18 04:58 Lymphocytes # (Manual) 0.4 K/mm3 (1.2-5.4) L 03/14/18 04:58 Abs React Lymphs (Man) 0.0 K/mm3 03/14/18 04:58 Monocytes # (Manual) 0.1 K/mm3 (0.0-0.8) 03/14/18 04:58 Eosinophils # (Manual) 0.1 K/mm3 (0.0-0.4) 03/14/18 04:58 Basophils # (Manual) 0.0 K/mm3 (0.0-0.1) 03/14/18 04:58 Metamyelocytes # 0.0 K/mm3 03/14/18 04:58 Myelocytes # 0.0 K/mm3 03/14/18 04:58 Promyelocytes # 0.0 K/mm3 03/14/18 04:58 Blast Cells # 0.0 K/mm3 03/14/18 04:58 WBC Morphology Not Reportable 03/14/18 04:58 Hypersegmented Neuts Not Reportable 03/14/18 04:58 Hyposegmented Neuts Not Reportable 03/14/18 04:58 Hypogranular Neuts Not Reportable 03/14/18 04:58 Smudge Cells Not Reportable 03/14/18 04:58 Toxic Granulation Not Reportable 03/14/18 04:58 Toxic Vacuolation Not Reportable 03/14/18 04:58 Dohle Bodies Not Reportable 03/14/18 04:58 Pelger-Huet Anomaly Not Reportable 03/14/18 04:58 Jimbo Rods Not Reportable 03/14/18 04:58 Platelet Estimate Consistent w auto 03/14/18 04:58 Clumped Platelets Not Reportable 03/14/18 04:58 Plt Clumps, EDTA Not Reportable 03/14/18 04:58 Large Platelets Not Reportable 03/14/18 04:58 Giant Platelets Not Reportable 03/14/18 04:58 Platelet Satelliting Not Reportable 03/14/18 04:58 Plt Morphology Comment Not Reportable 03/14/18 04:58 RBC Morphology Not Reportable 03/14/18 04:58 Dimorphic RBCs Not Reportable 03/14/18 04:58 Polychromasia Not Reportable 03/14/18 04:58 Hypochromasia 2+ 03/14/18 04:58 Poikilocytosis 1+ 03/14/18 04:58 Anisocytosis 1+ 03/14/18 04:58 Microcytosis 1+ 03/14/18 04:58 Macrocytosis Not Reportable 03/14/18 04:58 Spherocytes Not Reportable 03/14/18 04:58 Pappenheimer Bodies Not Reportable 03/14/18 04:58 Sickle Cells Not Reportable 03/14/18 04:58 Target Cells Few 03/14/18 04:58 Tear Drop Cells Rare 03/14/18 04:58 Ovalocytes Few 03/14/18 04:58 Helmet Cells Not Reportable 03/14/18 04:58 Nolen-Arrey Bodies Not Reportable 03/14/18 04:58 Mclean Rings Not Reportable 03/14/18 04:58 [place] Cells Not Reportable 03/14/18 04:58 Bite Cells Not Reportable 03/14/18 04:58 Crenated Cell Not Reportable 03/14/18 04:58 Elliptocytes Rare 03/14/18 04:58 Acanthocytes (Spur) Not Reportable 03/14/18 04:58 Rouleaux Not Reportable 03/14/18 04:58 Hemoglobin C Crystals Not Reportable 03/14/18 04:58 Schistocytes Not Reportable 03/14/18 04:58 Malaria parasites Not Reportable 03/14/18 04:58 Justino Bodies Not Reportable 03/14/18 04:58 Hem Pathologist Commnt No 03/14/18 04:58 APTT 28.2 Sec. (24.2-36.6) 03/11/18 14:44 POC ABG pH 7.200 (7.35-7.45) L 03/16/18 05:09 POC ABG pCO2 61.0 (35-45) H 03/16/18 05:09 POC ABG pO2 65 (80-105) L 03/16/18 05:09 POC ABG HCO3 23.9 03/16/18 05:09 POC ABG Total CO2 26 03/16/18 05:09 POC ABG O2 Sat 86 03/16/18 05:09 POC ABG Base Excess -4 03/16/18 05:09 FiO2 100 % 03/16/18 05:09 Sodium 145 mmol/L (137-145) 03/16/18 03:00 Potassium 4.0 mmol/L (3.6-5.0) 03/16/18 03:00 Chloride 107.2 mmol/L (98-107) H 03/16/18 03:00 Carbon Dioxide 23 mmol/L (22-30) 03/16/18 03:00 Anion Gap 19 mmol/L 03/16/18 03:00 BUN 30 mg/dL (7-17) H 03/16/18 03:00 Creatinine 1.3 mg/dL (0.7-1.2) H 03/16/18 03:00 Estimated GFR 51 ml/min 03/16/18 03:00 BUN/Creatinine Ratio 23 % 03/16/18 03:00 Glucose 377 mg/dL (65-100) H 03/16/18 03:00 POC Glucose 366 (70-105) H 03/16/18 05:52 Lactic Acid 2.40 mmol/L (0.7-2.0) H* 03/12/18 03:38 Calcium 6.3 mg/dL (8.4-10.2) L 03/16/18 03:00 Phosphorus 4.70 mg/dL (2.5-4.5) H 03/15/18 07:30 Magnesium 3.90 mg/dL (1.7-2.3) H 03/15/18 07:30 Total Bilirubin 0.20 mg/dL (0.1-1.2) 03/15/18 07:30 AST 169 units/L (5-40) H 03/15/18 07:30 ALT 47 units/L (7-56) 03/15/18 07:30 Alkaline Phosphatase 88 units/L (35-129) 03/15/18 07:30 Total Creatine Kinase 1434 units/L (30-135) H 03/11/18 14:20 Total Protein 4.3 g/dL (6.3-8.2) L D 03/15/18 07:30 Albumin 1.4 g/dL (3.9-5) L 03/15/18 07:30 Albumin/Globulin Ratio 0.5 % 03/15/18 07:30 Urine Color Yellow (Yellow) 03/11/18 14:50 Urine Turbidity Slightly-cloudy (Clear) 03/11/18 14:50 Urine pH 5.0 (5.0-7.0) 03/11/18 14:50 Ur Specific [place] 1.020 (1.003-1.030) 03/11/18 14:50 Urine Protein 30 mg/dl mg/dL (Negative) 03/11/18 14:50 Urine Glucose (UA) >=500 mg/dL (Negative) 03/11/18 14:50 Urine Ketones Neg mg/dL (Negative) 03/11/18 14:50 Urine Blood Mod (Negative) 03/11/18 14:50 Urine Nitrite Neg (Negative) 03/11/18 14:50 Urine Bilirubin Neg (Negative) 03/11/18 14:50 Urine Urobilinogen 4.0 mg/dL (<2.0) 03/11/18 14:50 Ur Leukocyte Esterase Neg (Negative) 03/11/18 14:50 Urine WBC (Auto) 7.0 /HPF (0.0-6.0) H 03/11/18 14:50 Urine RBC (Auto) 3.0 /HPF (0.0-6.0) 03/11/18 14:50 U Epithel Cells (Auto) < 1.0 /HPF (0-13.0) 03/11/18 14:50 Urine Mucus Few /HPF 03/11/18 14:50 Urine Yeast (Budding) 1+ /HPF 03/11/18 14:50 Vancomycin Trough 23.7 ug/mL (5.0-20.0) H 03/16/18 00:30 Blood Type O POSITIVE 03/15/18 10:30 Antibody Screen Negative 03/15/18 10:30 Crossmatch See Detail 03/15/18 10:30 Nutrition/Malnutrition Assess - Dietary Evaluation Nutrition/Malnutrition Findings: Nutrition Notes Start: 03/12/18 09:05 Freq: Status: Active Protocol: Document 03/14/18 13:40 LAURA (Rec: 03/14/18 13:47 LAURA [email or web address]) Nutrition Notes Initial or Follow up Reassessment Current Diagnoses Diabetes Sepsis Respiratory Failure Other Pertinent Diagnosis UTI, pneu Current Diet TF - Glucerna 1.2 at 50ml/hr Labs/Tests Na 150 K 2.4 Mg 1.3 Medications Mag sulfate x 1, 40mEq KCl x 1 , Propofol at 4.5ml/hr ( provides 119 kcal from fat) Height 5 ft 5 in Weight 50.6 kg Lynch Body Weight (lbs) 125.0 BMI 18.6 Weight change and time frame Current wt obtained from bed scale Weight Status Underweight Subjective/Other Information Pt remains on vent support. She is tolerating TF at goal rate, per RN. RN flushing with 200ml water q4h. Percent of energy/protein needs met: 100% energy and pro Burn Absent Trauma Absent #1 Nutrition Diagnoses Inadequate oral intake Diagnosis Progress(for reassessment Continues documentation) Is patient on ventilator? Yes Is Patient Ambulatory and/or Out of Bed No REE-([facility]-confined to bed) 1309.212 Kcal/Kg value to use for calculation 35 Approximate Energy Requirements Using 1771 kcal/Kg Calculation Used for Recommendations Kcal/kg Additional Notes Pro needs 1.2-2g/k-101g/ day Fluid needs 1ml/kcal Nutrition Intervention Nutrition Support: Continue Glucerna 1.2 at 50mL/ hr. 200mL flush q4h Kcal 1,440 Protein (gm) 72 Fluid (mL) 966 Goal #1 TF tolerance Goal #2 TF to meet 100% nutrient needs Goal #3 Wt maintenance and/or gain Follow-Up By: 03/20/18 Additional Comments F/U: stable TF, vent status, Na lab/need for 200ml q4h water flush, propofol
[2018-03-16] MEDS: PEPCID IV SCH ×2 (10:50→22:34)
--- NOTE | 2018-03-16 10:55 | Progress Note ---
Assessment and Plan Cultures: 04/11/2017 blood culture: No growth 03/11/2018 urine culture: No growth 03/12/2018 sputum culture: MSSA A/P: 57-year-old female with HTN, debility, contractures, half-way resident, schizophrenia and seizure disorder, admitted with: 1) Refractory septic shock: source is probably pneumonia based on CT scan, urine culture negative. Sputum culture growing MSSA. Patient is on appropriate antibiotics for now: Cefepime and vancomycin. Levofloxacin is not needed, will discontinue. Overall prognosis is extremely poor with the patient currently needing 3 pressors. 2) Acute respiratory failure: on vent, 100% FiO2. 3) Cardiac arrest 3 4) Acute encephalopathy 5) Acute renal failure: secondary to shock Recs: -Contnue Cefepime and vancomycin. -Overall prognosis is extremely poor with the patient currently needing [address] Pinzon will be taking call from home on Monday, , and making rounds in the hospital on Monday. [facility] M: [phone] O:[phone] Subjective Date of service: 03/16/18 Principal diagnosis: Acute Hypoxemic Respiratory Failure; Severe Sepsis with Shock; ARDS; UTI Interval history: Patient seen and examined. Remains on vent, 3 pressors, nonresponsive. family not a bedside Objective - Exam Narrative Exam: Constitutional: intubated, unresponsive Head, Ears, Nose: Normocephalic, atraumatic. External ears, nose normal Eyes: Conjunctivae/corneas clear. No icterus. No ptosis. Neck: Supple, no meningeal signs Oral: intubated Cardiovascular: S1, S2 normal. Respiratory: Good air entry, clear to auscultation bilaterally GI: Soft, non-tender; bowel sounds hypoactive. Gtube +. No peritoneal signs Musculoskeletal: No pedal edema, no cyanosis. Skin: No rash or abscess Hem/Lymphatic: No palpable cervical or supraclavicular nodes. No lymphangitis Psych: no agitation Neurological: intubated, unresponsive - Constitutional Vitals: Vital Signs Temp Pulse Resp BP Pulse Ox 99.2 F 120 H 30 H 133/79 90 03/16/18 08:00 03/16/18 09:20 03/16/18 09:20 03/16/18 09:20 03/16/18 09:20 Temperature -Last 24 Hours Temperature 99.2 F Temperature 97.7 F Temperature 96.5 F Temperature 94.6 F Temperature 95 F Temperature 97.4 F - Labs CBC & Chem 7: 03/16/18 03:00 03/16/18 03:00 Labs: Abnormal lab results 03/15/18 03/15/18 03/15/18 Range/Units 10:30 12:22 14:49 RBC (3.65-5.03) M/mm3 Hgb (10.1-14.3) gm/dl Hct (30.3-42.9) % MCV (79-97) fl MCH (28-32) pg RDW (13.2-15.2) % Plt Count (140-440) K/mm3 POC ABG pH 7.008 L (7.35-7.45) POC ABG pCO2 68.0 H (35-45) POC ABG pO2 51 L (80-105) Sodium (137-145) mmol/L Chloride (98-107) mmol/L BUN (7-17) mg/dL Creatinine (0.7-1.2) mg/dL Glucose (65-100) mg/dL POC Glucose 179 H (70-105) Calcium (8.4-10.2) mg/dL Vancomycin Trough (5.0-20.0) ug/mL Crossmatch See Detail 03/15/18 03/15/18 03/15/18 Range/Units 18:15 22:55 23:00 RBC (3.65-5.03) M/mm3 Hgb 9.4 L D (10.1-14.3) gm/dl Hct 28.9 L D (30.3-42.9) % MCV 77 L (79-97) fl MCH 25 L (28-32) pg RDW 17.8 H (13.2-15.2) % Plt Count 37 L (140-440) K/mm3 POC ABG pH 7.140 L (7.35-7.45) POC ABG pCO2 61.0 H (35-45) POC ABG pO2 60 L (80-105) Sodium (137-145) mmol/L Chloride (98-107) mmol/L BUN (7-17) mg/dL Creatinine (0.7-1.2) mg/dL Glucose (65-100) mg/dL POC Glucose 225 H (70-105) Calcium (8.4-10.2) mg/dL Vancomycin Trough (5.0-20.0) ug/mL Crossmatch 03/15/18 03/15/18 03/16/18 Range/Units 23:00 23:31 00:30 RBC (3.65-5.03) M/mm3 Hgb (10.1-14.3) gm/dl Hct (30.3-42.9) % MCV (79-97) fl MCH (28-32) pg RDW (13.2-15.2) % Plt Count (140-440) K/mm3 POC ABG pH (7.35-7.45) POC ABG pCO2 (35-45) POC ABG pO2 (80-105) Sodium 148 H (137-145) mmol/L Chloride 110.2 H (98-107) mmol/L BUN 30 H (7-17) mg/dL Creatinine (0.7-1.2) mg/dL Glucose 355 H (65-100) mg/dL POC Glucose 368 H (70-105) Calcium 6.8 L (8.4-10.2) mg/dL Vancomycin Trough 23.7 H (5.0-20.0) ug/mL Crossmatch 03/16/18 03/16/18 03/16/18 Range/Units 03:00 03:00 05:09 RBC 3.55 L (3.65-5.03) M/mm3 Hgb 8.8 L (10.1-14.3) gm/dl Hct 27.3 L (30.3-42.9) % MCV 77 L (79-97) fl MCH 25 L (28-32) pg RDW 18.0 H (13.2-15.2) % Plt Count 24 L (140-440) K/mm3 POC ABG pH 7.200 L (7.35-7.45) POC ABG pCO2 61.0 H (35-45) POC ABG pO2 65 L (80-105) Sodium (137-145) mmol/L Chloride 107.2 H (98-107) mmol/L BUN 30 H (7-17) mg/dL Creatinine 1.3 H (0.7-1.2) mg/dL Glucose 377 H (65-100) mg/dL POC Glucose (70-105) Calcium 6.3 L (8.4-10.2) mg/dL Vancomycin Trough (5.0-20.0) ug/mL Crossmatch 03/16/18 Range/Units 05:52 RBC (3.65-5.03) M/mm3 Hgb (10.1-14.3) gm/dl Hct (30.3-42.9) % MCV (79-97) fl MCH (28-32) pg RDW (13.2-15.2) % Plt Count (140-440) K/mm3 POC ABG pH (7.35-7.45) POC ABG pCO2 (35-45) POC ABG pO2 (80-105) Sodium (137-145) mmol/L Chloride (98-107) mmol/L BUN (7-17) mg/dL Creatinine (0.7-1.2) mg/dL Glucose (65-100) mg/dL POC Glucose 366 H (70-105) Calcium (8.4-10.2) mg/dL Vancomycin Trough (5.0-20.0) ug/mL Crossmatch
[2018-03-16] MEDS: MAXIPIME/NS 2 GM/100 ML 2 GM/100 ML BAG IV SCH ×2 (10:57→22:34)
[2018-03-16] MEDS: SODIUM CHLORIDE FLUSH SYRINGE 10 ML IV SCH ×2 (11:00→22:35)
--- NOTE | 2018-03-16 12:04 | Consultation ---
History of Present Illness Consult date: 03/16/18 Requesting physician: WALLACE DELUCA Reason for Consult: S/P cardiac arrest, suspect anoxic injury History of present illness: The patient is a 57-year-old female with HTN, debility, contractures, jail resident, and schizophrenia was brought to the emergency room on 03/11/2018 in an unresponsive state. Apparently the patient had having fevers and chills prior to admission on the same day with a temperature of 105F. This was verified by her daughter who is at the bedside. She was also noted to be in rsp iratory distress. She was found to have severe sepsis with hypoxia. She was admitted to the hospital in the ICU, started on sepsis protocol and intubated and placed on the ventilator. She was started on empiric antibiotics. On 03/15/18 the pt. had 3 cardiac arrests with resuscitation each time. She is currently requiring pressor agents to maintain BP. She is unresponsive on the ventilator. Daughter denies that she had a history of seizures. WE are aasked to evaluate the pt. for anoxic injury. Past History Past Medical History: hypertension, seizures, other (Contracture, Debility, Schizophrenia) Past Surgical History: Other (PEG placement) Social history: . denies: smoking, alcohol abuse, prescription drug abuse Family history: hypertension Medications and Allergies Allergies Allergy/AdvReac Type Severity Reaction Status Date / Time pineapple Allergy Itching Unverified 07/11/17 08:44 Active Meds: Active Medications Acetaminophen (Tylenol) 650 mg PO Q6H PRN PRN Reason: Pain, Mild (1-3) Last Admin: 03/13/18 22:37 Dose: 650 mg Documented by: Albuterol/Ipratropium (Duoneb *Not For Prn Use*) 1 ampul IH Q6HRT [facility] Last Admin: 03/16/18 07:54 Dose: 1 ampul Documented by: Lipase/Protease/Amylase (Suresh Solis 10,500 Unit) 1 each FEEDTUBE PRN PRN PRN Reason: For Clogged Feeding Tube Epinephrine (Adrenalin) 1 mg IV Q5MIN [facility] Stop: 03/19/18 08:01 Famotidine (Pepcid) 20 mg IV BID [facility] Last Admin: 03/15/18 21:08 Dose: 20 mg Documented by: Fentanyl (Sublimaze) 50 mcg IV Q10MIN PRN PRN Reason: ANALGESIA Hydrophilic Ointment (Vaseline Lip Therapy) 1 applic TP Q2HR PRN PRN Reason: Dry Lips Cefepime HCl (Maxipime/Ns 2 Gm/100 Ml) 2 gm in 100 mls @ 200 mls/hr IV Q12HR S ; Protocol Last Admin: 03/15/18 21:08 Dose: 200 mls/hr Documented by: Norepinephrine (Levophed Drip 4 Mg/Ns 250 Ml) 4 mg in 250 mls @ 7.5 mls/hr IV TITR [facility]; Protocol Last Titration: 03/16/18 08:45 Dose: 1.6 mcg/min, 6 mls/hr Documented by: Fentanyl Citrate (Fentanyl Drip Premix) 2,000 mcg in 100 mls @ 2.3 mls/hr IV TITR VIKRAM; Protocol Last Admin: 03/14/18 11:27 Dose: 2 mcg/kg/hr, 4.6 mls/hr Documented by: Vasopressin 20 unit/ Sodium (Chloride) 101 mls @ 9.09 mls/hr IV TITR VIKRAM; Protocol Last Admin: 03/16/18 00:02 Dose: 0 units/min, 0.03 mls/hr Documented by: Propofol (Diprivan 10 Mg/Ml) 1,000 mg in 100 mls @ 1.38 mls/hr IV TITR VIKRAM; Protocol Last Titration: 03/15/18 12:45 Dose: 0 mcg/kg/min, 0 mls/hr Documented by: Epinephrine 16 mg/ Sodium (Chloride) 250 mls @ 1.88 mls/hr IV TITR VIKRAM; Protocol Last Titration: 03/15/18 21:16 Dose: 2 mcg/min, 1.88 mls/hr Documented by: Sodium Bicarbonate 150 meq/ (Dextrose) 1,150 mls @ 125 mls/hr IV DIRECT [facility] Last Admin: 03/16/18 01:35 Dose: 125 mls/hr Documented by: Dopamine HCl/Dextrose (Intropin Drip 800 Mg/D5w 250 Ml) 800 mg in 250 mls @ 1.898 mls/hr IV TITR VIKRAM; Protocol Last Titration: 03/16/18 08:22 Dose: 7.37 mcg/kg/min, 7 mls/hr Documented by: Insulin Human Lispro (Humalog) 0 unit SUB-Q Q6HR [facility]; Protocol Last Admin: 03/16/18 06:04 Dose: Not Given Documented by: Multi-Ingred Cream/Lotion/Oil/Oint (Artificial Tears Ophth Oint) 1 applic OU Q4HR PRN PRN Reason: Dry Eye(s) Simple Syrup (Simple Syrup) 15 ml FEEDTUBE PRN PRN PRN Reason: Hypoglycemia Simple Syrup (Simple Syrup) 30 ml FEEDTUBE PRN PRN PRN Reason: Hypoglycemia Sodium Bicarbonate (Sodium Bicarbonate) 325 mg FEEDTUBE PRN PRN PRN Reason: For Clogged Feeding Tube Sodium Chloride (Sodium Chloride Flush Syringe 10 Ml) 10 ml IV BID [facility] Last Admin: 03/15/18 21:09 Dose: 10 ml Documented by: Sodium Chloride (Sodium Chloride Flush Syringe 10 Ml) 10 ml IV PRN PRN PRN Reason: LINE FLUSH Physical Examination - Vital Signs Vital Signs: Vital Signs Pulse Ox 81 L 03/11/18 13:06 - Physical Exam Narrative exam: Neurological exam - unresponsive on the ventilator. No spontaneous movement. instructional design specialist - pupils: rt - 3 mm, unreactive, left - 4 mm unreactive. eyes are yoked in position. corneal reflexes are absent. Motor- no movement to painful stimuli, all 4 limbs. Reflexes - absent Sensory - does not withdraw or react to painful stimuli. Results - Laboratory Findings CBC and BMP: 03/16/18 03:00 03/16/18 03:00 Abnormal Lab Findings: Abnormal Labs 03/11/18 03/11/18 03/11/18 14:20 14:20 14:20 WBC RBC Hgb 10.0 L Hct MCV 74 L MCH 23 L RDW Plt Count Seg Neuts % (Manual) 89.0 H Lymphocytes % (Manual) 8.0 L Nucleated RBC % Lymphocytes # (Manual) 0.4 L POC ABG pH POC ABG pCO2 POC ABG pO2 Sodium 160 H Potassium Chloride 118.4 H BUN 64 H Creatinine 1.5 H Glucose 592 H* POC Glucose Lactic Acid 7.20 H* Calcium Phosphorus Magnesium AST 60 H Total Creatine Kinase 1434 H Total Protein Albumin 2.0 L Urine WBC (Auto) Vancomycin Trough Crossmatch 03/11/18 03/11/18 03/11/18 14:50 15:04 15:08 WBC RBC Hgb Hct MCV MCH RDW Plt Count Seg Neuts % (Manual) Lymphocytes % (Manual) Nucleated RBC % Lymphocytes # (Manual) POC ABG pH POC ABG pCO2 POC ABG pO2 61 L Sodium Potassium Chloride BUN Creatinine Glucose POC Glucose Lactic Acid 6.60 H* Calcium Phosphorus Magnesium AST Total Creatine Kinase Total Protein Albumin Urine WBC (Auto) 7.0 H Vancomycin Trough Crossmatch 03/11/18 03/11/18 03/11/18 16:38 16:40 19:36 WBC RBC Hgb Hct MCV MCH RDW Plt Count Seg Neuts % (Manual) Lymphocytes % (Manual) Nucleated RBC % Lymphocytes # (Manual) POC ABG pH POC ABG pCO2 POC ABG pO2 Sodium Potassium Chloride BUN Creatinine Glucose POC Glucose 314 H Lactic Acid 5.40 H* 3.70 H* Calcium Phosphorus Magnesium AST Total Creatine Kinase Total Protein Albumin Urine WBC (Auto) Vancomycin Trough Crossmatch 03/11/18 03/11/18 03/11/18 19:36 19:36 20:33 WBC RBC Hgb Hct MCV MCH RDW Plt Count Seg Neuts % (Manual) Lymphocytes % (Manual) Nucleated RBC % Lymphocytes # (Manual) POC ABG pH POC ABG pCO2 POC ABG pO2 Sodium 165 H* Potassium 3.1 L Chloride 128.9 H BUN 45 H Creatinine Glucose 230 H POC Glucose Lactic Acid 3.70 H* 4.00 H* Calcium 7.4 L Phosphorus Magnesium AST Total Creatine Kinase Total Protein Albumin Urine WBC (Auto) Vancomycin Trough Crossmatch 03/11/18 03/11/18 03/11/18 20:53 23:37 23:42 WBC RBC Hgb Hct MCV MCH RDW Plt Count Seg Neuts % (Manual) Lymphocytes % (Manual) Nucleated RBC % Lymphocytes # (Manual) POC ABG pH 7.298 L POC ABG pCO2 POC ABG pO2 65 L Sodium Potassium Chloride BUN Creatinine Glucose POC Glucose 235 H Lactic Acid 2.30 H* Calcium Phosphorus Magnesium AST Total Creatine Kinase Total Protein Albumin Urine WBC (Auto) Vancomycin Trough Crossmatch 03/12/18 03/12/18 03/12/18 01:44 03:38 05:15 WBC RBC Hgb Hct MCV MCH RDW Plt Count Seg Neuts % (Manual) Lymphocytes % (Manual) Nucleated RBC % Lymphocytes # (Manual) POC ABG pH POC ABG pCO2 POC ABG pO2 Sodium Potassium Chloride BUN Creatinine Glucose POC Glucose 303 H Lactic Acid 2.30 H* 2.40 H* Calcium Phosphorus Magnesium AST Total Creatine Kinase Total Protein Albumin Urine WBC (Auto) Vancomycin Trough Crossmatch 03/12/18 03/12/18 03/12/18 08:22 11:14 18:23 WBC RBC Hgb Hct MCV MCH RDW Plt Count Seg Neuts % (Manual) Lymphocytes % (Manual) Nucleated RBC % Lymphocytes # (Manual) POC ABG pH POC ABG pCO2 31.8 L POC ABG pO2 48 L Sodium Potassium Chloride BUN Creatinine Glucose POC Glucose 209 H 255 H Lactic Acid Calcium Phosphorus Magnesium AST Total Creatine Kinase Total Protein Albumin Urine WBC (Auto) Vancomycin Trough Crossmatch 03/12/18 03/12/18 03/13/18 19:06 23:45 03:00 WBC RBC 3.35 L Hgb 7.7 L Hct 24.8 L D MCV 74 L MCH 23 L RDW Plt Count 139 L Seg Neuts % (Manual) 75.0 H Lymphocytes % (Manual) 8.0 L Nucleated RBC % 1.0 H Lymphocytes # (Manual) 0.4 L POC ABG pH 7.220 L POC ABG pCO2 57.3 H POC ABG pO2 52 L Sodium Potassium Chloride BUN Creatinine Glucose POC Glucose 227 H Lactic Acid Calcium Phosphorus Magnesium AST Total Creatine Kinase Total Protein Albumin Urine WBC (Auto) Vancomycin Trough Crossmatch 03/13/18 03/13/18 03/13/18 03:00 05:14 05:47 WBC RBC Hgb Hct MCV MCH RDW Plt Count Seg Neuts % (Manual) Lymphocytes % (Manual) Nucleated RBC % Lymphocytes # (Manual) POC ABG pH 7.187 L POC ABG pCO2 65.6 H POC ABG pO2 Sodium 157 H Potassium 2.6 L* Chloride 120.3 H BUN 18 H Creatinine Glucose 314 H POC Glucose 364 H Lactic Acid Calcium 7.4 L Phosphorus Magnesium AST Total Creatine Kinase Total Protein Albumin Urine WBC (Auto) Vancomycin Trough Crossmatch 03/13/18 03/13/18 03/13/18 12:32 18:08 23:31 WBC RBC Hgb Hct MCV MCH RDW Plt Count Seg Neuts % (Manual) Lymphocytes % (Manual) Nucleated RBC % Lymphocytes # (Manual) POC ABG pH POC ABG pCO2 POC ABG pO2 Sodium Potassium Chloride BUN Creatinine Glucose POC Glucose 304 H 169 H 125 H Lactic Acid Calcium Phosphorus Magnesium AST Total Creatine Kinase Total Protein Albumin Urine WBC (Auto) Vancomycin Trough Crossmatch 03/14/18 03/14/18 03/14/18 04:56 04:58 04:58 WBC RBC 3.16 L Hgb 7.3 L Hct 23.0 L MCV 73 L MCH 23 L RDW Plt Count 114 L Seg Neuts % (Manual) 83.0 H Lymphocytes % (Manual) 7.0 L Nucleated RBC % Lymphocytes # (Manual) 0.4 L POC ABG pH POC ABG pCO2 POC ABG pO2 Sodium 150 H Potassium 2.4 L* Chloride 111.0 H BUN Creatinine 0.5 L Glucose 139 H POC Glucose 185 H Lactic Acid Calcium 7.2 L Phosphorus Magnesium AST Total Creatine Kinase Total Protein Albumin Urine WBC (Auto) Vancomycin Trough Crossmatch 03/14/18 03/14/18 03/14/18 04:58 05:01 12:03 WBC RBC Hgb Hct MCV MCH RDW Plt Count Seg Neuts % (Manual) Lymphocytes % (Manual) Nucleated RBC % Lymphocytes # (Manual) POC ABG pH POC ABG pCO2 POC ABG pO2 140 H Sodium Potassium Chloride BUN Creatinine Glucose POC Glucose 212 H Lactic Acid Calcium Phosphorus Magnesium 1.30 L AST Total Creatine Kinase Total Protein Albumin Urine WBC (Auto) Vancomycin Trough Crossmatch 03/14/18 03/14/18 03/15/18 18:06 23:10 05:11 WBC RBC Hgb Hct MCV MCH RDW Plt Count Seg Neuts % (Manual) Lymphocytes % (Manual) Nucleated RBC % Lymphocytes # (Manual) POC ABG pH POC ABG pCO2 POC ABG pO2 Sodium 149 H Potassium 3.0 L D Chloride 111.1 H BUN Creatinine Glucose 255 H POC Glucose 212 H 226 H Lactic Acid Calcium 7.1 L Phosphorus Magnesium AST Total Creatine Kinase Total Protein Albumin Urine WBC (Auto) Vancomycin Trough Crossmatch 03/15/18 03/15/18 03/15/18 05:11 05:11 05:44 WBC 4.4 L RBC 2.93 L Hgb 6.7 L Hct 21.3 L MCV 73 L MCH 23 L RDW Plt Count 87 L Seg Neuts % (Manual) Lymphocytes % (Manual) Nucleated RBC % Lymphocytes # (Manual) POC ABG pH 7.256 L POC ABG pCO2 67.6 H POC ABG pO2 45 L Sodium Potassium Chloride BUN Creatinine Glucose POC Glucose 298 H Lactic Acid Calcium Phosphorus Magnesium AST Total Creatine Kinase Total Protein Albumin Urine WBC (Auto) Vancomycin Trough Crossmatch 03/15/18 03/15/18 03/15/18 05:54 07:30 07:30 WBC 3.1 L RBC 2.67 L Hgb 6.2 L Hct 20.5 L MCV 77 L MCH 23 L RDW 15.9 H Plt Count 90 L Seg Neuts % (Manual) Lymphocytes % (Manual) Nucleated RBC % Lymphocytes # (Manual) POC ABG pH 7.182 L POC ABG pCO2 74.8 H POC ABG pO2 64 L Sodium 152 H Potassium 3.2 L Chloride 109.7 H BUN Creatinine Glucose 316 H POC Glucose Lactic Acid Calcium 7.7 L Phosphorus 4.70 H Magnesium 3.90 H AST 169 H Total Creatine Kinase Total Protein 4.3 L D Albumin 1.4 L Urine WBC (Auto) Vancomycin Trough Crossmatch 03/15/18 03/15/18 03/15/18 10:30 12:22 14:49 WBC RBC Hgb Hct MCV MCH RDW Plt Count Seg Neuts % (Manual) Lymphocytes % (Manual) Nucleated RBC % Lymphocytes # (Manual) POC ABG pH 7.008 L POC ABG pCO2 68.0 H POC ABG pO2 51 L Sodium Potassium Chloride BUN Creatinine Glucose POC Glucose 179 H Lactic Acid Calcium Phosphorus Magnesium AST Total Creatine Kinase Total Protein Albumin Urine WBC (Auto) Vancomycin Trough Crossmatch See Detail 03/15/18 03/15/18 03/15/18 18:15 22:55 23:00 WBC RBC Hgb 9.4 L D Hct 28.9 L D MCV 77 L MCH 25 L RDW 17.8 H Plt Count 37 L Seg Neuts % (Manual) Lymphocytes % (Manual) Nucleated RBC % Lymphocytes # (Manual) POC ABG pH 7.140 L POC ABG pCO2 61.0 H POC ABG pO2 60 L Sodium Potassium Chloride BUN Creatinine Glucose POC Glucose 225 H Lactic Acid Calcium Phosphorus Magnesium AST Total Creatine Kinase Total Protein Albumin Urine WBC (Auto) Vancomycin Trough Crossmatch 03/15/18 03/15/18 03/16/18 23:00 23:31 00:30 WBC RBC Hgb Hct MCV MCH RDW Plt Count Seg Neuts % (Manual) Lymphocytes % (Manual) Nucleated RBC % Lymphocytes # (Manual) POC ABG pH POC ABG pCO2 POC ABG pO2 Sodium 148 H Potassium Chloride 110.2 H BUN 30 H Creatinine Glucose 355 H POC Glucose 368 H Lactic Acid Calcium 6.8 L Phosphorus Magnesium AST Total Creatine Kinase Total Protein Albumin Urine WBC (Auto) Vancomycin Trough 23.7 H Crossmatch 03/16/18 03/16/18 03/16/18 03:00 03:00 05:09 WBC RBC 3.55 L Hgb 8.8 L Hct 27.3 L MCV 77 L MCH 25 L RDW 18.0 H Plt Count 24 L Seg Neuts % (Manual) Lymphocytes % (Manual) Nucleated RBC % Lymphocytes # (Manual) POC ABG pH 7.200 L POC ABG pCO2 61.0 H POC ABG pO2 65 L Sodium Potassium Chloride 107.2 H BUN 30 H Creatinine 1.3 H Glucose 377 H POC Glucose Lactic Acid Calcium 6.3 L Phosphorus Magnesium AST Total Creatine Kinase Total Protein Albumin Urine WBC (Auto) Vancomycin Trough Crossmatch 03/16/18 05:52 WBC RBC Hgb Hct MCV MCH RDW Plt Count Seg Neuts % (Manual) Lymphocytes % (Manual) Nucleated RBC % Lymphocytes # (Manual) POC ABG pH POC ABG pCO2 POC ABG pO2 Sodium Potassium Chloride BUN Creatinine Glucose POC Glucose 366 H Lactic Acid Calcium Phosphorus Magnesium AST Total Creatine Kinase Total Protein Albumin Urine WBC (Auto) Vancomycin Trough Crossmatch Assessment and Plan 57 yr old female presented with fever and [facility] 03[facility]11/[facility]. She was treated for sepsis and intubated. On 03/15/18 she suffered 3 cardiac arrests. SHe is now unresponsive requiring pressor agents to maintain blood pressure. Her exam is compatible with anoxic injury. It is not clinically safe to transfer her for a CT brain. Plan - EEG
[2018-03-16] MEDS ORDERED: NACL 0.9% 1000 ML ONE (13:05)
[2018-03-16] MEDS ORDERED: D5W IV ONE (13:05)
[2018-03-16] MEDS: LEVOPHED DRIP 4 MG/NS 250 ML 4 MG/250 ML BAG IV SCH ×3 (15:05→21:19)
[2018-03-17] MEDS: LEVOPHED DRIP 4 MG/NS 250 ML 4 MG/250 ML BAG IV SCH ×7 (00:57→23:39)
[2018-03-17] MEDS: Vasostrict 20 UNIT in NACL 0.9% 100 ML IV SCH ×3 (00:59→20:38)
[2018-03-17] MEDS: HumaLOG SUB-Q SCH ×5 (01:50→23:06)
[2018-03-17] MEDS: DUONEB *Not for PRN Use IH SCH ×4 (02:41→20:24)
[2018-03-17] MEDS: SODIUM BICARBONATE 150 MEQ in D5W 1,000 ML IV SCH ×3 (03:39→22:50)
--- NOTE | 2018-03-17 03:45 | XRay Report ---
FINAL REPORT PROCEDURE: XR CHEST 1V AP TECHNIQUE: Chest radiograph anteroposterior view. CPT 38380 HISTORY: follow up respiratory failure COMPARISON: 03/16/2018 FINDINGS: Heart: Normal. Mediastinum/Vessels: Normal. Lungs/Pleural space: Bilateral scattered infiltrates throughout both lungs are again noted and unchan ged. Mild right effusion is noted.. Bony thorax: No acute osseous abnormality. Life support devices: The endotracheal tube ends 5 centimeter above the mike. A left PICC catheter ends in the SVC. IMPRESSION: Scattered infiltrates throughout the lungs are again noted unchanged. There a years right effusion. T he endotracheal tube and left PICC catheter are properly positioned..
[2018-03-17 04:44] LABS: Mean Corpuscular HGB Conc 33 % (30-34); Mean Corpuscular Volume 76 fl (79-97); Red Blood Count 3.58 M/mm3 (3.65-5.03); Red Cell Distribution Width 18.5 % (13.2-15.2)
[2018-03-17 05:34] LABS: Platelet Count 30 K/mm3 (140-440)
[2018-03-17 06:47] LABS: Calcium 6.6 mg/dL (8.4-10.2)
[2018-03-17] MEDS: INTROPIN DRIP 800 MG/D5W 250 ML 800 MG/250 ML BAG IV SCH (06:51)
[2018-03-17] MEDS: PEPCID IV SCH ×2 (10:16→21:04)
[2018-03-17] MEDS: SODIUM CHLORIDE FLUSH SYRINGE 10 ML IV SCH ×2 (10:16→21:05)
[2018-03-17] MEDS: MAXIPIME/NS 2 GM/100 ML 2 GM/100 ML BAG IV SCH (10:16)
[2018-03-17] MEDS: ADRENALIN 16 MG in NACL 0.9% 250ML 234 ML IV SCH ×2 (12:31→20:15)
[2018-03-17] MEDS: VASELINE LIP THERAPY TP PRN ×2 (13:11→18:24)
--- NOTE | 2018-03-17 14:01 | Progress Note ---
Assessment and Plan Acute Hypoxemic Respiratory Failure Severe Sepsis with Shock ARDS UTI (urinary tract infection) due to urinary indwelling catheter Encephalopathy Thrombocytopenia Mixed Acidosis Diabetes mellitus DVT prophylaxis (Patient too unstable to send for neuroimaging or NM brain flow scan at this point however she is weaning slowly of vasopressors) - continue to wean oxygen to keep sats > 90% - keep Peep at 10 cmH2O (re: Hypotension) - LTVV strategies otherwise - VAP bundle addressed - replacing potassium aggressively - continue Severe sepsis protocol - continue Vasopressor support and wean for target MAP > 65 mmHg - daily ABG's acutely - CT chest demonstrates dense bibasilar consolidation with cavitation vs infected bullae in LLL in particular - continue empiric antibiotic therapy, target HAP - continue and de-escalate AB's per ID recs - follow Blood, urine and sputum cultures - GI & VTE prophylaxis - Aspiration precautions - hypernatremia resolved - enteral nutrition as tolerated - Monitor fever curve, - get CRP and trend with lactic acid levels prn to aid clinical decision making - Strict intake and output in this critically ill patient - continue other care per attending / other consultants (understand family is distraught and trying to come to terms with her condition but very poor short term prognosis and we may ultimately need to do clinical brain testing if remains too unstable for neuro-imaging) The high probability of a clinically significant, sudden or life threatening deterioration of the [cardiac, renal, neuro, respiratory] system(s) required my full and direct attention, intervention and personal management. The aggregate critical care time was [34] minutes. This time is in addition to time spent performing reported procedures but includes the following: [x] Data Review and interpretation [x] Patient assessment and monitoring of vital signs [x] Documentation [x] Medication orders and management Subjective Date of service: 03/17/18 Principal diagnosis: Acute Hypoxemic Respiratory Failure; Severe Sepsis with Shock; ARDS; UTI Interval history: Patient is seen today for: Acute Hypoxemic Respiratory Failure; Severe Sepsis with Shock; ARDS; UTI; Acute Encephalopathy Seen and examined at bedside; 24hour events reviewed; nursing and respiratory care staff consulted; no adverse overnight events reported to me; remains on M VS; s/p CODE BLUE yesterday with ROSC; clinical exam now suggests possible brain ; remains on multiple vasopressors; no emesis or overt aspiration; non responsive Objective Vital Signs - 12hr 03/17/18 03/17/1819 02:10 02:20 02:30 Temperature Pulse Rate 120 H 120 H 120 H Pulse Rate [ Anterior Bilateral Throughout] Pulse Rate [ From Monitor] Respiratory 30 H 30 H 26 H Rate Respiratory Rate [Anterior Bilateral Throughout] Blood Pressure 127/74 127/74 131/73 O2 Sat by Pulse 96 96 96 Oximetry 03/17/18 03/17/18 03/17/18 02:40 02:42 02:50 Temperature Pulse Rate 120 H 123 H Pulse Rate [ 120 H Anterior Bilateral Throughout] Pulse Rate [ From Monitor] Respiratory 30 H 30 H Rate Respiratory 30 H Rate [Anterior Bilateral Throughout] Blood Pressure 121/74 121/74 O2 Sat by Pulse 96 89 Oximetry 03/17/18 03/17/18 03/17/18 02:57 03:00 03:03 Temperature 100 F H Pulse Rate 123 H Pulse Rate [ 120 H Anterior Bilateral Throughout] Pulse Rate [ From Monitor] Respiratory 29 H Rate Respiratory 30 H Rate [Anterior Bilateral Throughout] Blood Pressure 116/79 O2 Sat by Pulse 91 Oximetry 03/17/18 03/17/18 03/17/18 03:10 03:20 03:30 Temperature Pulse Rate 122 H 121 H 119 H Pulse Rate [ Anterior Bilateral Throughout] Pulse Rate [ From Monitor] Respiratory 30 H 30 H 30 H Rate Respiratory Rate [Anterior Bilateral Throughout] Blood Pressure 131/73 131/73 125/80 O2 Sat by Pulse 90 96 97 Oximetry 03/17/18 03/17/18 03/17/18 03:40 03:50 04:00 Temperature Pulse Rate 119 H 120 H 120 H Pulse Rate [ Anterior Bilateral Throughout] Pulse Rate [ 116 H From Monitor] Respiratory 30 H 30 H 27 H Rate Respiratory Rate [Anterior Bilateral Throughout] Blood Pressure 116/79 116/79 109/67 O2 Sat by Pulse 97 97 97 Oximetry 03/17/18 03/17/18 03/17/18 04:10 04:20 04:30 Temperature Pulse Rate 120 H 117 H 130 H Pulse Rate [ Anterior Bilateral Throughout] Pulse Rate [ From Monitor] Respiratory 30 H 30 H 30 H Rate Respiratory Rate [Anterior Bilateral Throughout] Blood Pressure 125/80 125/80 113/70 O2 Sat by Pulse 97 89 87 Oximetry 03/17/18 03/17/18 03/17/18 04:40 04:43 04:50 Temperature Pulse Rate 120 H 119 H 117 H Pulse Rate [ Anterior Bilateral Throughout] Pulse Rate [ From Monitor] Respiratory 30 H 30 H Rate Respiratory Rate [Anterior Bilateral Throughout] Blood Pressure 109/67 113/70 109/67 O2 Sat by Pulse 98 98 97 Oximetry 03/17/18 03/17/18 03/17/18 05:00 05:10 05:20 Temperature Pulse Rate 116 H 115 H 115 H Pulse Rate [ Anterior Bilateral Throughout] Pulse Rate [ From Monitor] Respiratory 26 H 30 H 30 H Rate Respiratory Rate [Anterior Bilateral Throughout] Blood Pressure 108/64 113/70 113/70 O2 Sat by Pulse 98 98 98 Oximetry 03/17/18 03/17/18 03/17/18 05:30 05:40 05:50 Temperature Pulse Rate 115 H 116 H 116 H Pulse Rate [ Anterior Bilateral Throughout] Pulse Rate [ From Monitor] Respiratory 27 H 30 H 30 H Rate Respiratory Rate [Anterior Bilateral Throughout] Blood Pressure 104/72 104/72 104/72 O2 Sat by Pulse 98 98 98 Oximetry 03/17/18 03/17/18 03/17/18 06:00 06:10 06:20 Temperature Pulse Rate 117 H 116 H 116 H Pulse Rate [ Anterior Bilateral Throughout] Pulse Rate [ From Monitor] Respiratory 27 H 30 H 30 H Rate Respiratory Rate [Anterior Bilateral Throughout] Blood Pressure 107/74 107/74 107/74 O2 Sat by Pulse 98 97 98 Oximetry 03/17/18 03/17/18 03/17/18 06:30 06:40 06:50 Temperature Pulse Rate 116 H 116 H 117 H Pulse Rate [ Anterior Bilateral Throughout] Pulse Rate [ From Monitor] Respiratory 27 H 30 H 30 H Rate Respiratory Rate [Anterior Bilateral Throughout] Blood Pressure 116/70 116/70 116/70 O2 Sat by Pulse 98 97 97 Oximetry 03/17/18 03/17/18 03/17/18 07:00 07:10 07:20 Temperature Pulse Rate 117 H 116 H 117 H Pulse Rate [ Anterior Bilateral Throughout] Pulse Rate [ From Monitor] Respiratory 26 H 30 H 30 H Rate Respiratory Rate [Anterior Bilateral Throughout] Blood Pressure 121/74 121/74 121/74 O2 Sat by Pulse 98 97 98 Oximetry 03/17/18 03/17/18 03/17/18 07:30 07:40 07:50 Temperature Pulse Rate 117 H 116 H 115 H Pulse Rate [ Anterior Bilateral Throughout] Pulse Rate [ From Monitor] Respiratory 27 H 30 H 30 H Rate Respiratory Rate [Anterior Bilateral Throughout] Blood Pressure 133/75 133/75 133/75 O2 Sat by Pulse 98 97 97 Oximetry 03/17/18 03/17/18 03/17/18 08:00 08:10 08:20 Temperature 98.8 F Pulse Rate 111 H 111 H 111 H Pulse Rate [ Anterior Bilateral Throughout] Pulse Rate [ 112 H From Monitor] Respiratory 30 H 30 H 30 H Rate Respiratory Rate [Anterior Bilateral Throughout] Blood Pressure 133/75 93/59 90/51 O2 Sat by Pulse 9 L 93 93 Oximetry 03/17/18 03/17/18 03/17/18 08:30 08:31 08:40 Temperature Pulse Rate 113 H 116 H 112 H Pulse Rate [ Anterior Bilateral Throughout] Pulse Rate [ From Monitor] Respiratory 30 H 27 H Rate Respiratory Rate [Anterior Bilateral Throughout] Blood Pressure 96/67 96/67 63/41 O2 Sat by Pulse 96 96 95 Oximetry 03/17/18 03/17/18 03/17/18 08:42 08:50 08:54 Temperature Pulse Rate 130 H Pulse Rate [ 125 H 122 H Anterior Bilateral Throughout] Pulse Rate [ From Monitor] Respiratory 30 H Rate Respiratory 30 H 30 H Rate [Anterior Bilateral Throughout] Blood Pressure 202/111 O2 Sat by Pulse 85 Oximetry 03/17/18 03/17/18 03/17/18 09:00 09:10 09:20 Temperature Pulse Rate 117 H 122 H 120 H Pulse Rate [ Anterior Bilateral Throughout] Pulse Rate [ From Monitor] Respiratory 30 H 30 H 30 H Rate Respiratory Rate [Anterior Bilateral Throughout] Blood Pressure 101/69 101/69 101/69 O2 Sat by Pulse 92 97 98 Oximetry 03/17/18 03/17/18 03/17/18 09:30 09:40 09:50 Temperature Pulse Rate 119 H 118 H 121 H Pulse Rate [ Anterior Bilateral Throughout] Pulse Rate [ From Monitor] Respiratory 29 H 30 H 30 H Rate Respiratory Rate [Anterior Bilateral Throughout] Blood Pressure 130/74 130/74 130/74 O2 Sat by Pulse 100 100 100 Oximetry 03/17/18 03/17/18 03/17/18 10:00 10:10 10:20 Temperature Pulse Rate 118 H 117 H 115 H Pulse Rate [ Anterior Bilateral Throughout] Pulse Rate [ From Monitor] Respiratory 30 H 30 H 30 H Rate Respiratory Rate [Anterior Bilateral Throughout] Blood Pressure 141/71 141/71 141/71 O2 Sat by Pulse 100 100 99 Oximetry 03/17/18 03/17/18 03/17/18 10:30 10:40 10:50 Temperature Pulse Rate 114 H 111 H 111 H Pulse Rate [ Anterior Bilateral Throughout] Pulse Rate [ From Monitor] Respiratory 30 H 30 H 30 H Rate Respiratory Rate [Anterior Bilateral Throughout] Blood Pressure 137/77 137/77 137/77 O2 Sat by Pulse 100 99 99 Oximetry 03/17/18 03/17/18 03/17/18 11:00 11:10 11:20 Temperature Pulse Rate 112 H 111 H 112 H Pulse Rate [ Anterior Bilateral Throughout] Pulse Rate [ From Monitor] Respiratory 27 H 30 H 30 H Rate Respiratory Rate [Anterior Bilateral Throughout] Blood Pressure 130/75 130/75 130/75 O2 Sat by Pulse 100 99 99 Oximetry 03/17/18 03/17/18 03/17/18 11:30 11:40 11:42 Temperature Pulse Rate 109 H 105 H 106 H Pulse Rate [ Anterior Bilateral Throughout] Pulse Rate [ From Monitor] Respiratory 27 H 11 L Rate Respiratory Rate [Anterior Bilateral Throughout] Blood Pressure 128/76 128/76 128/76 O2 Sat by Pulse 99 98 98 Oximetry 03/17/18 03/17/18 03/17/18 11:50 12:00 12:10 Temperature 98.3 F Pulse Rate 106 H 105 H 108 H Pulse Rate [ Anterior Bilateral Throughout] Pulse Rate [ 105 H From Monitor] Respiratory 30 H 30 H 30 H Rate Respiratory Rate [Anterior Bilateral Throughout] Blood Pressure 128/76 116/68 116/68 O2 Sat by Pulse 99 98 98 Oximetry 03/17/18 03/17/18 03/17/18 12:20 12:30 12:40 Temperature Pulse Rate 107 H 107 H 104 H Pulse Rate [ Anterior Bilateral Throughout] Pulse Rate [ From Monitor] Respiratory 30 H 30 H 30 H Rate Respiratory Rate [Anterior Bilateral Throughout] Blood Pressure 116/68 123/73 123/73 O2 Sat by Pulse 98 99 98 Oximetry 03/17/18 03/17/18 03/17/18 12:50 13:00 13:10 Temperature Pulse Rate 102 H 105 H 107 H Pulse Rate [ Anterior Bilateral Throughout] Pulse Rate [ From Monitor] Respiratory 30 H 30 H 30 H Rate Respiratory Rate [Anterior Bilateral Throughout] Blood Pressure 123/73 111/67 111/67 O2 Sat by Pulse 97 97 96 Oximetry 03/17/18 03/17/18 03/17/18 13:20 13:27 13:42 Temperature Pulse Rate 106 H Pulse Rate [ 105 H 107 H Anterior Bilateral Throughout] Pulse Rate [ From Monitor] Respiratory 15 Rate Respiratory 30 H 30 H Rate [Anterior Bilateral Throughout] Blood Pressure 123/73 O2 Sat by Pulse 95 Oximetry Constitutional: appears uncomfortable, other (middle aged chronically ill looking AAF; normocephalic with moderately increased rsepiratory effort on BIPAP) Eyes: non-icteric ENT: oropharynx moist, other (ETT 23 cm YOLANDA) Neck: supple, no lymphadenopathy, no JVD, other (no thyromegaly) Effort: mildly labored Ascultation: Bilateral: diminished breath sounds, rhonchi Percussion: Bilateral: not dull Cardiovascular: regular rate and rhythm Gastrointestinal: normoactive bowel sounds, soft, non-tender, non-distended Integumentary: other (poor turgor) Extremities: no cyanosis, no edema, pulses normal, no ischemia or petechiae Neurologic: unable to assess, other (opens eyes to verbal calls) Psychiatric: other (encephalopathic) CBC and BMP: 03/18/18 03:56 03/18/18 03:56 ABG, PT/INR, D-dimer: ABG POC ABG pH 7.224 (7.35-7.45) L 03/17/18 05:34 POC ABG pCO2 69.4 (35-45) H 03/17/18 05:34 POC ABG pO2 81 (80-105) 03/17/18 05:34 POC ABG HCO3 28.7 03/17/18 05:34 POC ABG Total CO2 31 03/17/18 05:34 POC ABG O2 Sat 93 03/17/18 05:34 Abnormal lab findings: Abnormal Labs 03/11/18 03/11/18 03/11/18 14:20 14:20 14:20 WBC RBC Hgb 10.0 L Hct MCV 74 L MCH 23 L RDW Plt Count Seg Neuts % (Manual) 89.0 H Lymphocytes % (Manual) 8.0 L Nucleated RBC % Lymphocytes # (Manual) 0.4 L POC ABG pH POC ABG pCO2 POC ABG pO2 Sodium 160 H Potassium Chloride 118.4 H BUN 64 H Creatinine 1.5 H Glucose 592 H* POC Glucose Lactic Acid 7.20 H* Calcium Phosphorus Magnesium AST 60 H Total Creatine Kinase 1434 H Total Protein Albumin 2.0 L Urine WBC (Auto) Vancomycin Trough Crossmatch 03/11/18 03/11/18 03/11/18 14:50 15:04 15:08 WBC RBC Hgb Hct MCV MCH RDW Plt Count Seg Neuts % (Manual) Lymphocytes % (Manual) Nucleated RBC % Lymphocytes # (Manual) POC ABG pH POC ABG pCO2 POC ABG pO2 61 L Sodium Potassium Chloride BUN Creatinine Glucose POC Glucose Lactic Acid 6.60 H* Calcium Phosphorus Magnesium AST Total Creatine Kinase Total Protein Albumin Urine WBC (Auto) 7.0 H Vancomycin Trough Crossmatch 03/11/18 03/11/18 03/11/18 16:38 16:40 19:36 WBC RBC Hgb Hct MCV MCH RDW Plt Count Seg Neuts % (Manual) Lymphocytes % (Manual) Nucleated RBC % Lymphocytes # (Manual) POC ABG pH POC ABG pCO2 POC ABG pO2 Sodium Potassium Chloride BUN Creatinine Glucose POC Glucose 314 H Lactic Acid 5.40 H* 3.70 H* Calcium Phosphorus Magnesium AST Total Creatine Kinase Total Protein Albumin Urine WBC (Auto) Vancomycin Trough Crossmatch 03/11/18 03/11/18 03/11/18 19:36 19:36 20:33 WBC RBC Hgb Hct MCV MCH RDW Plt Count Seg Neuts % (Manual) Lymphocytes % (Manual) Nucleated RBC % Lymphocytes # (Manual) POC ABG pH POC ABG pCO2 POC ABG pO2 Sodium 165 H* Potassium 3.1 L Chloride 128.9 H BUN 45 H Creatinine Glucose 230 H POC Glucose Lactic Acid 3.70 H* 4.00 H* Calcium 7.4 L Phosphorus Magnesium AST Total Creatine Kinase Total Protein Albumin Urine WBC (Auto) Vancomycin Trough Crossmatch 03/11/18 03/11/18 03/11/18 20:53 23:37 23:42 WBC RBC Hgb Hct MCV MCH RDW Plt Count Seg Neuts % (Manual) Lymphocytes % (Manual) Nucleated RBC % Lymphocytes # (Manual) POC ABG pH 7.298 L POC ABG pCO2 POC ABG pO2 65 L Sodium Potassium Chloride BUN Creatinine Glucose POC Glucose 235 H Lactic Acid 2.30 H* Calcium Phosphorus Magnesium AST Total Creatine Kinase Total Protein Albumin Urine WBC (Auto) Vancomycin Trough Crossmatch 03/12/18 03/12/18 03/12/18 01:44 03:38 05:15 WBC RBC Hgb Hct MCV MCH RDW Plt Count Seg Neuts % (Manual) Lymphocytes % (Manual) Nucleated RBC % Lymphocytes # (Manual) POC ABG pH POC ABG pCO2 POC ABG pO2 Sodium Potassium Chloride BUN Creatinine Glucose POC Glucose 303 H Lactic Acid 2.30 H* 2.40 H* Calcium Phosphorus Magnesium AST Total Creatine Kinase Total Protein Albumin Urine WBC (Auto) Vancomycin Trough Crossmatch 03/12/18 03/12/18 03/12/18 08:22 11:14 18:23 WBC RBC Hgb Hct MCV MCH RDW Plt Count Seg Neuts % (Manual) Lymphocytes % (Manual) Nucleated RBC % Lymphocytes # (Manual) POC ABG pH POC ABG pCO2 31.8 L POC ABG pO2 48 L Sodium Potassium Chloride BUN Creatinine Glucose POC Glucose 209 H 255 H Lactic Acid Calcium Phosphorus Magnesium AST Total Creatine Kinase Total Protein Albumin Urine WBC (Auto) Vancomycin Trough Crossmatch 03/12/18 03/12/18 03/13/18 19:06 23:45 03:00 WBC RBC 3.35 L Hgb 7.7 L Hct 24.8 L D MCV 74 L MCH 23 L RDW Plt Count 139 L Seg Neuts % (Manual) 75.0 H Lymphocytes % (Manual) 8.0 L Nucleated RBC % 1.0 H Lymphocytes # (Manual) 0.4 L POC ABG pH 7.220 L POC ABG pCO2 57.3 H POC ABG pO2 52 L Sodium Potassium Chloride BUN Creatinine Glucose POC Glucose 227 H Lactic Acid Calcium Phosphorus Magnesium AST Total Creatine Kinase Total Protein Albumin Urine WBC (Auto) Vancomycin Trough Crossmatch 03/13/18 03/13/18 03/13/18 03:00 05:14 05:47 WBC RBC Hgb Hct MCV MCH RDW Plt Count Seg Neuts % (Manual) Lymphocytes % (Manual) Nucleated RBC % Lymphocytes # (Manual) POC ABG pH 7.187 L POC ABG pCO2 65.6 H POC ABG pO2 Sodium 157 H Potassium 2.6 L* Chloride 120.3 H BUN 18 H Creatinine Glucose 314 H POC Glucose 364 H Lactic Acid Calcium 7.4 L Phosphorus Magnesium AST Total Creatine Kinase Total Protein Albumin Urine WBC (Auto) Vancomycin Trough Crossmatch 03/13/18 03/13/18 03/13/18 12:32 18:08 23:31 WBC RBC Hgb Hct MCV MCH RDW Plt Count Seg Neuts % (Manual) Lymphocytes % (Manual) Nucleated RBC % Lymphocytes # (Manual) POC ABG pH POC ABG pCO2 POC ABG pO2 Sodium Potassium Chloride BUN Creatinine Glucose POC Glucose 304 H 169 H 125 H Lactic Acid Calcium Phosphorus Magnesium AST Total Creatine Kinase Total Protein Albumin Urine WBC (Auto) Vancomycin Trough Crossmatch 03/14/18 03/14/18 03/14/18 04:56 04:58 04:58 WBC RBC 3.16 L Hgb 7.3 L Hct 23.0 L MCV 73 L MCH 23 L RDW Plt Count 114 L Seg Neuts % (Manual) 83.0 H Lymphocytes % (Manual) 7.0 L Nucleated RBC % Lymphocytes # (Manual) 0.4 L POC ABG pH POC ABG pCO2 POC ABG pO2 Sodium 150 H Potassium 2.4 L* Chloride 111.0 H BUN Creatinine 0.5 L Glucose 139 H POC Glucose 185 H Lactic Acid Calcium 7.2 L Phosphorus Magnesium AST Total Creatine Kinase Total Protein Albumin Urine WBC (Auto) Vancomycin Trough Crossmatch 03/14/18 03/14/18 03/14/18 04:58 05:01 12:03 WBC RBC Hgb Hct MCV MCH RDW Plt Count Seg Neuts % (Manual) Lymphocytes % (Manual) Nucleated RBC % Lymphocytes # (Manual) POC ABG pH POC ABG pCO2 POC ABG pO2 140 H Sodium Potassium Chloride BUN Creatinine Glucose POC Glucose 212 H Lactic Acid Calcium Phosphorus Magnesium 1.30 L AST Total Creatine Kinase Total Protein Albumin Urine WBC (Auto) Vancomycin Trough Crossmatch 03/14/18 03/14/18 03/15/18 18:06 23:10 05:11 WBC RBC Hgb Hct MCV MCH RDW Plt Count Seg Neuts % (Manual) Lymphocytes % (Manual) Nucleated RBC % Lymphocytes # (Manual) POC ABG pH POC ABG pCO2 POC ABG pO2 Sodium 149 H Potassium 3.0 L D Chloride 111.1 H BUN Creatinine Glucose 255 H POC Glucose 212 H 226 H Lactic Acid Calcium 7.1 L Phosphorus Magnesium AST Total Creatine Kinase Total Protein Albumin Urine WBC (Auto) Vancomycin Trough Crossmatch 03/15/18 03/15/18 03/15/18 05:11 05:11 05:44 WBC 4.4 L RBC 2.93 L Hgb 6.7 L Hct 21.3 L MCV 73 L MCH 23 L RDW Plt Count 87 L Seg Neuts % (Manual) Lymphocytes % (Manual) Nucleated RBC % Lymphocytes # (Manual) POC ABG pH 7.256 L POC ABG pCO2 67.6 H POC ABG pO2 45 L Sodium Potassium Chloride BUN Creatinine Glucose POC Glucose 298 H Lactic Acid Calcium Phosphorus Magnesium AST Total Creatine Kinase Total Protein Albumin Urine WBC (Auto) Vancomycin Trough Crossmatch 03/15/18 03/15/18 03/15/18 05:54 07:30 07:30 WBC 3.1 L RBC 2.67 L Hgb 6.2 L Hct 20.5 L MCV 77 L MCH 23 L RDW 15.9 H Plt Count 90 L Seg Neuts % (Manual) Lymphocytes % (Manual) Nucleated RBC % Lymphocytes # (Manual) POC ABG pH 7.182 L POC ABG pCO2 74.8 H POC ABG pO2 64 L Sodium 152 H Potassium 3.2 L Chloride 109.7 H BUN Creatinine Glucose 316 H POC Glucose Lactic Acid Calcium 7.7 L Phosphorus 4.70 H Magnesium 3.90 H AST 169 H Total Creatine Kinase Total Protein 4.3 L D Albumin 1.4 L Urine WBC (Auto) Vancomycin Trough Crossmatch 03/15/18 03/15/18 03/15/18 10:30 12:22 14:49 WBC RBC Hgb Hct MCV MCH RDW Plt Count Seg Neuts % (Manual) Lymphocytes % (Manual) Nucleated RBC % Lymphocytes # (Manual) POC ABG pH 7.008 L POC ABG pCO2 68.0 H POC ABG pO2 51 L Sodium Potassium Chloride BUN Creatinine Glucose POC Glucose 179 H Lactic Acid Calcium Phosphorus Magnesium AST Total Creatine Kinase Total Protein Albumin Urine WBC (Auto) Vancomycin Trough Crossmatch See Detail 03/15/18 03/15/18 03/15/18 18:15 22:55 23:00 WBC RBC Hgb 9.4 L D Hct 28.9 L D MCV 77 L MCH 25 L RDW 17.8 H Plt Count 37 L Seg Neuts % (Manual) Lymphocytes % (Manual) Nucleated RBC % Lymphocytes # (Manual) POC ABG pH 7.140 L POC ABG pCO2 61.0 H POC ABG pO2 60 L Sodium Potassium Chloride BUN Creatinine Glucose POC Glucose 225 H Lactic Acid Calcium Phosphorus Magnesium AST Total Creatine Kinase Total Protein Albumin Urine WBC (Auto) Vancomycin Trough Crossmatch 03/15/18 03/15/18 03/16/18 23:00 23:31 00:30 WBC RBC Hgb Hct MCV MCH RDW Plt Count Seg Neuts % (Manual) Lymphocytes % (Manual) Nucleated RBC % Lymphocytes # (Manual) POC ABG pH POC ABG pCO2 POC ABG pO2 Sodium 148 H Potassium Chloride 110.2 H BUN 30 H Creatinine Glucose 355 H POC Glucose 368 H Lactic Acid Calcium 6.8 L Phosphorus Magnesium AST Total Creatine Kinase Total Protein Albumin Urine WBC (Auto) Vancomycin Trough 23.7 H Crossmatch 03/16/18 03/16/18 03/16/18 03:00 03:00 05:09 WBC RBC 3.55 L Hgb 8.8 L Hct 27.3 L MCV 77 L MCH 25 L RDW 18.0 H Plt Count 24 L Seg Neuts % (Manual) Lymphocytes % (Manual) Nucleated RBC % Lymphocytes # (Manual) POC ABG pH 7.200 L POC ABG pCO2 61.0 H POC ABG pO2 65 L Sodium Potassium Chloride 107.2 H BUN 30 H Creatinine 1.3 H Glucose 377 H POC Glucose Lactic Acid Calcium 6.3 L Phosphorus Magnesium AST Total Creatine Kinase Total Protein Albumin Urine WBC (Auto) Vancomycin Trough Crossmatch 03/16/18 03/16/18 03/16/18 05:52 11:54 17:28 WBC RBC Hgb Hct MCV MCH RDW Plt Count Seg Neuts % (Manual) Lymphocytes % (Manual) Nucleated RBC % Lymphocytes # (Manual) POC ABG pH POC ABG pCO2 POC ABG pO2 Sodium Potassium Chloride BUN Creatinine Glucose POC Glucose 366 H 296 H 222 H Lactic Acid Calcium Phosphorus Magnesium AST Total Creatine Kinase Total Protein Albumin Urine WBC (Auto) Vancomycin Trough Crossmatch 03/17/18 03/17/18 03/17/18 01:08 04:32 04:32 WBC RBC 3.58 L Hgb 9.0 L Hct 27.0 L MCV 76 L MCH 25 L RDW 18.5 H Plt Count 30 L Seg Neuts % (Manual) Lymphocytes % (Manual) Nucleated RBC % Lymphocytes # (Manual) POC ABG pH POC ABG pCO2 POC ABG pO2 Sodium Potassium 3.5 L Chloride BUN 40 H Creatinine 2.1 H D Glucose 137 H POC Glucose 140 H Lactic Acid Calcium 6.6 L Phosphorus Magnesium AST Total Creatine Kinase Total Protein Albumin Urine WBC (Auto) Vancomycin Trough Crossmatch 03/17/18 03/17/18 03/17/18 05:34 06:01 12:17 WBC RBC Hgb Hct MCV MCH RDW Plt Count Seg Neuts % (Manual) Lymphocytes % (Manual) Nucleated RBC % Lymphocytes # (Manual) POC ABG pH 7.224 L POC ABG pCO2 69.4 H POC ABG pO2 Sodium Potassium Chloride BUN Creatinine Glucose POC Glucose 157 H 182 H Lactic Acid Calcium Phosphorus Magnesium AST Total Creatine Kinase Total Protein Albumin Urine WBC (Auto) Vancomycin Trough Crossmatch Allied health notes reviewed: nursing
--- NOTE | 2018-03-17 15:53 | Progress Note ---
Assessment and Plan Assessment and plan: Cardiopulmonary arrest today x 3 on morning of 03/15/18. On 03/15/17, Dilan rose called at 07:04, for asystole after bradycardia, code run per ACLS protocol. She had CPR done and was given multiple doses of E pinephrine, Bicarb, Atropine. Patient resuscitated, got pulse 07:18. Cardiac arrest again at 07:33, resuscitated at 07:48 after CPR and multiple doses of Epinephrine. cardiac arrest at 08:49 again and she was again resuscitated, regained pulse at 09:01 Later discussed with Pulmonology. Sepsis/septic shock. Continue IV antibiotics. Cont. pressors to maintain MAP>65. patient on levophed, vasopressin, Dopamine Patient with elevated lactic acid UTI. Acute hypoxemic respiratory failure. Pulm following Anoxic encephalopathy after 3 episodes of cardiopulm arrest. consulted Neurology discussed with Dr. Geoffrey CHAVEZ. Cont current abx. F/U serial CXR Diabetes mellitus type 2. Continue Accu-Cheks and sliding scale insulin. Toxic metabolic encephalopathy. Continue to treat underlying causes. Hypernatremia. Continue free water and D5W IV fluids. Hypokalemia. Replaced hypomagnesemia. replaced Acute renal failure due to ATN, hypotension. Consult Nephro Full code status Very Poor prognosis Discussed with daughter. She wants everything done-full code. The high probability of a clinically significant, sudden or life threatening deterioration of the [4] system(s) required my full and direct attention, intervention and personal management. The aggregate critical care time was [32] minutes. This time is in addition to time spent performing reported procedures but includes the following: [x] Data Review and interpretation [x] Patient assessment and monitoring of vital signs [x] Documentation [x] Medication orders and management History Interval history: Patient had cardiopulmonary arrest X 3 on 03/15/18 Now unresponsive Hospitalist Physical - Physical exam Narrative exam: GEN: Not in acute distress, intubated HEENT: Normocephalic, atraumatic, Neck: supple, No JVD Lungs: Clear to auscultation, no wheeze Heart:S1 and S2 regular, no murmurs, rubs or gallop, Abd:soft, non tender, non distended, normal bowel sounds Ext: No edema, no clubbing or cyanosis Neuro: Intubated, unresponsive, pupils fixed, no corneal reflex - Constitutional Vitals: Temp Pulse Resp BP Pulse Ox 98.3 F 105 H 30 H 110/67 98 03/17/18 12:00 03/17/18 15:40 03/17/18 15:40 03/17/18 15:40 03/17/18 15:40 Results - Labs CBC & Chem 7: 03/17/18 04:32 03/17/18 04:32 Labs: Laboratory Last Values WBC 8.6 K/mm3 (4.5-11.0) 03/17/18 04:32 RBC 3.58 M/mm3 (3.65-5.03) L 03/17/18 04:32 Hgb 9.0 gm/dl (10.1-14.3) L 03/17/18 04:32 Hct 27.0 % (30.3-42.9) L 03/17/18 04:32 MCV 76 fl (79-97) L 03/17/18 04:32 MCH 25 pg (28-32) L 03/17/18 04:32 MCHC 33 % (30-34) 03/17/18 04:32 RDW 18.5 % (13.2-15.2) H 03/17/18 04:32 Plt Count 30 K/mm3 (140-440) L 03/17/18 04:32 Lymph % (Auto) Tip Banding Machine Operator 03/11/18 14:20 [place] % (Auto) Tip Banding Machine Operator 03/11/18 14:20 Eos % (Auto) Tip Banding Machine Operator 03/11/18 14:20 Baso % (Auto) Tip Banding Machine Operator 03/11/18 14:20 Lymph # Tip Banding Machine Operator 03/11/18 14:20 [place] # Tip Banding Machine Operator 03/11/18 14:20 Eos # Tip Banding Machine Operator 03/11/18 14:20 Baso # Tip Banding Machine Operator 03/11/18 14:20 Add Manual Diff Complete 03/14/18 04:58 Total Counted 100 03/14/18 04:58 Seg Neutrophils % Tip Banding Machine Operator 03/14/18 04:58 Seg Neuts % (Manual) 83.0 % (40.0-70.0) H 03/14/18 04:58 Band Neutrophils % 8.0 % 03/14/18 04:58 Lymphocytes % (Manual) 7.0 % (13.4-35.0) L 03/14/18 04:58 Reactive Lymphs % (Man) 0 % 03/14/18 04:58 Monocytes % (Manual) 1.0 % (0.0-7.3) 03/14/18 04:58 Eosinophils % (Manual) 1.0 % (0.0-4.3) 03/14/18 04:58 Basophils % (Manual) 0 % (0.0-1.8) 03/14/18 04:58 Metamyelocytes % 0 % 03/14/18 04:58 Myelocytes % 0 % 03/14/18 04:58 Promyelocytes % 0 % 03/14/18 04:58 Blast Cells % 0 % 03/14/18 04:58 Nucleated RBC % Not Reportable 03/14/18 04:58 Seg Neutrophils # Tip Banding Machine Operator 03/11/18 14:20 Seg Neutrophils # Man 4.9 K/mm3 (1.8-7.7) 03/14/18 04:58 Band Neutrophils # 0.5 K/mm3 03/14/18 04:58 Lymphocytes # (Manual) 0.4 K/mm3 (1.2-5.4) L 03/14/18 04:58 Abs React Lymphs (Man) 0.0 K/mm3 03/14/18 04:58 Monocytes # (Manual) 0.1 K/mm3 (0.0-0.8) 03/14/18 04:58 Eosinophils # (Manual) 0.1 K/mm3 (0.0-0.4) 03/14/18 04:58 Basophils # (Manual) 0.0 K/mm3 (0.0-0.1) 03/14/18 04:58 Metamyelocytes # 0.0 K/mm3 03/14/18 04:58 Myelocytes # 0.0 K/mm3 03/14/18 04:58 Promyelocytes # 0.0 K/mm3 03/14/18 04:58 Blast Cells # 0.0 K/mm3 03/14/18 04:58 WBC Morphology Not Reportable 03/14/18 04:58 Hypersegmented Neuts Not Reportable 03/14/18 04:58 Hyposegmented Neuts Not Reportable 03/14/18 04:58 Hypogranular Neuts Not Reportable 03/14/18 04:58 Smudge Cells Not Reportable 03/14/18 04:58 Toxic Granulation Not Reportable 03/14/18 04:58 Toxic Vacuolation Not Reportable 03/14/18 04:58 Dohle Bodies Not Reportable 03/14/18 04:58 Pelger-Huet Anomaly Not Reportable 03/14/18 04:58 Jimbo Rods Not Reportable 03/14/18 04:58 Platelet Estimate Consistent w auto 03/14/18 04:58 Clumped Platelets Not Reportable 03/14/18 04:58 Plt Clumps, EDTA Not Reportable 03/14/18 04:58 Large Platelets Not Reportable 03/14/18 04:58 Giant Platelets Not Reportable 03/14/18 04:58 Platelet Satelliting Not Reportable 03/14/18 04:58 Plt Morphology Comment Not Reportable 03/14/18 04:58 RBC Morphology Not Reportable 03/14/18 04:58 Dimorphic RBCs Not Reportable 03/14/18 04:58 Polychromasia Not Reportable 03/14/18 04:58 Hypochromasia 2+ 03/14/18 04:58 Poikilocytosis 1+ 03/14/18 04:58 Anisocytosis 1+ 03/14/18 04:58 Microcytosis 1+ 03/14/18 04:58 Macrocytosis Not Reportable 03/14/18 04:58 Spherocytes Not Reportable 03/14/18 04:58 Pappenheimer Bodies Not Reportable 03/14/18 04:58 Sickle Cells Not Reportable 03/14/18 04:58 Target Cells Few 03/14/18 04:58 Tear Drop Cells Rare 03/14/18 04:58 Ovalocytes Few 03/14/18 04:58 Helmet Cells Not Reportable 03/14/18 04:58 Nolen-Thruston Bodies Not Reportable 03/14/18 04:58 [place] Rings Not Reportable 03/14/18 04:58 Marco Cells Not Reportable 03/14/18 04:58 Bite Cells Not Reportable 03/14/18 04:58 Crenated Cell Not Reportable 03/14/18 04:58 Elliptocytes Rare 03/14/18 04:58 Acanthocytes (Spur) Not Reportable 03/14/18 04:58 Rouleaux Not Reportable 03/14/18 04:58 Hemoglobin C Crystals Not Reportable 03/14/18 04:58 Schistocytes Not Reportable 03/14/18 04:58 Malaria parasites Not Reportable 03/14/18 04:58 Justino Bodies Not Reportable 03/14/18 04:58 Hem Pathologist Commnt No 03/14/18 04:58 APTT 28.2 Sec. (24.2-36.6) 03/11/18 14:44 POC ABG pH 7.224 (7.35-7.45) L 03/17/18 05:34 POC ABG pCO2 69.4 (35-45) H 03/17/18 05:34 POC ABG pO2 81 (80-105) 03/17/18 05:34 POC ABG HCO3 28.7 03/17/18 05:34 POC ABG Total CO2 31 03/17/18 05:34 POC ABG O2 Sat 93 03/17/18 05:34 POC ABG Base Excess 1 03/17/18 05:34 FiO2 100 % 03/17/18 05:34 Sodium 145 mmol/L (137-145) 03/17/18 04:32 Potassium 3.5 mmol/L (3.6-5.0) L 03/17/18 04:32 Chloride 101.5 mmol/L (98-107) 03/17/18 04:32 Carbon Dioxide 28 mmol/L (22-30) 03/17/18 04:32 Anion Gap 19 mmol/L 03/17/18 04:32 BUN 40 mg/dL (7-17) H 03/17/18 04:32 Creatinine 2.1 mg/dL (0.7-1.2) H D 03/17/18 04:32 Estimated GFR 29 ml/min 03/17/18 04:32 BUN/Creatinine Ratio 19 % 03/17/18 04:32 Glucose 137 mg/dL (65-100) H 03/17/18 04:32 POC Glucose 182 (70-105) H 03/17/18 12:17 Lactic Acid 2.40 mmol/L (0.7-2.0) H* 03/12/18 03:38 Calcium 6.6 mg/dL (8.4-10.2) L 03/17/18 04:32 Phosphorus 4.70 mg/dL (2.5-4.5) H 03/15/18 07:30 Magnesium 3.90 mg/dL (1.7-2.3) H 03/15/18 07:30 Total Bilirubin 0.20 mg/dL (0.1-1.2) 03/15/18 07:30 AST 169 units/L (5-40) H 03/15/18 07:30 ALT 47 units/L (7-56) 03/15/18 07:30 Alkaline Phosphatase 88 units/L (35-129) 03/15/18 07:30 Total Creatine Kinase 1434 units/L (30-135) H 03/11/18 14:20 Total Protein 4.3 g/dL (6.3-8.2) L D 03/15/18 07:30 Albumin 1.4 g/dL (3.9-5) L 03/15/18 07:30 Albumin/Globulin Ratio 0.5 % 03/15/18 07:30 Urine Color Yellow (Yellow) 03/11/18 14:50 Urine Turbidity Slightly-cloudy (Clear) 03/11/18 14:50 Urine pH 5.0 (5.0-7.0) 03/11/18 14:50 Ur Specific [place] 1.020 (1.003-1.030) 03/11/18 14:50 Urine Protein 30 mg/dl mg/dL (Negative) 03/11/18 14:50 Urine Glucose (UA) >=500 mg/dL (Negative) 03/11/18 14:50 Urine Ketones Neg mg/dL (Negative) 03/11/18 14:50 Urine Blood Mod (Negative) 03/11/18 14:50 Urine Nitrite Neg (Negative) 03/11/18 14:50 Urine Bilirubin Neg (Negative) 03/11/18 14:50 Urine Urobilinogen 4.0 mg/dL (<2.0) 03/11/18 14:50 Ur Leukocyte Esterase Neg (Negative) 03/11/18 14:50 Urine WBC (Auto) 7.0 /HPF (0.0-6.0) H 03/11/18 14:50 Urine RBC (Auto) 3.0 /HPF (0.0-6.0) 03/11/18 14:50 U Epithel Cells (Auto) < 1.0 /HPF (0-13.0) 03/11/18 14:50 Urine Mucus Few /HPF 03/11/18 14:50 Urine Yeast (Budding) 1+ /HPF 03/11/18 14:50 Vancomycin Trough 23.7 ug/mL (5.0-20.0) H 03/16/18 00:30 Random Vancomycin 33.1 ug/mL (0-40.0) 03/17/18 04:32 Blood Type O POSITIVE 03/15/18 10:30 Antibody Screen Negative 03/15/18 10:30 Crossmatch See Detail 03/15/18 10:30 Nutrition/Malnutrition Assess - Dietary Evaluation Nutrition/Malnutrition Findings: Nutrition Notes Start: 03/12/18 09:05 Freq: Status: Active Protocol: Document 03/14/18 13:40 LAURA (Rec: 03/14/18 13:47 LAURA [id number] [email or web address]) Nutrition Notes Initial or Follow up Reassessment Current Diagnoses Diabetes Sepsis Respiratory Failure Other Pertinent Diagnosis UTI, pneu Current Diet TF - Glucerna 1.2 at 50ml/hr Labs/Tests Na 150 K 2.4 Mg 1.3 Medications Mag sulfate x 1, 40mEq KCl x 1 , Propofol at 4.5ml/hr ( provides 119 kcal from fat) Height 5 ft 5 in Weight 50.6 kg [place] Body Weight (lbs) 125.0 BMI 18.6 Weight change and time frame Current wt obtained from bed scale Weight Status Underweight Subjective/Other Information Pt remains on vent support. She is tolerating TF at goal rate, per RN. RN flushing with 200ml water q4h. Percent of energy/protein needs met: 100% energy and pro Burn Absent Trauma Absent #1 Nutrition Diagnoses Inadequate oral intake Diagnosis Progress(for reassessment Continues documentation) Is patient on ventilator? Yes Is Patient Ambulatory and/or Out of Bed No REE-([place]-confined to bed) 1309.212 Kcal/Kg value to use for calculation 35 Approximate Energy Requirements Using 1771 kcal/Kg Calculation Used for Recommendations Kcal/kg Additional Notes Pro needs 1.2-2g/k-101g/ day Fluid needs 1ml/kcal Nutrition Intervention Nutrition Support: Continue Glucerna 1.2 at 50mL/ hr. 200mL flush q4h Kcal 1,440 Protein (gm) 72 Fluid (mL) 966 Goal #1 TF tolerance Goal #2 TF to meet 100% nutrient needs Goal #3 Wt maintenance and/or gain Follow-Up By: 03/20/18 Additional Comments F/U: stable TF, vent status, Na lab/need for 200ml q4h water flush, propofol
[2018-03-18] MEDS: DUONEB *Not for PRN Use IH SCH ×4 (02:04→21:03)
[2018-03-18] MEDS: LEVOPHED DRIP 4 MG/NS 250 ML 4 MG/250 ML BAG IV SCH ×4 (04:00→15:13)
[2018-03-18 04:08] LABS: Hematocrit 23.7 % (30.3-42.9); Hemoglobin 7.8 gm/dl (10.1-14.3); Mean Corpuscular HGB Conc 33 % (30-34); Mean Corpuscular Volume 75 fl (79-97); Red Blood Count 3.15 M/mm3 (3.65-5.03); Red Cell Distribution Width 18.3 % (13.2-15.2)
[2018-03-18] MEDS: HumaLOG SUB-Q SCH ×3 (05:15→18:25)
[2018-03-18 06:31] LABS: Platelet Count 16 K/mm3 (140-440)
[2018-03-18 06:32] LABS: Mean Platelet Volume 7.1 fl (6-12)
[2018-03-18] MEDS ORDERED: POTASSIUM CHLORIDE FEEDTUBE ONE ×2 (07:45→12:00)
[2018-03-18] MEDS ORDERED: NACL 0.9% 500 ML 500 ML IV ONE (08:18)
[2018-03-18] MEDS: SODIUM BICARBONATE 150 MEQ in D5W 1,000 ML IV SCH ×2 (08:36→19:11)
[2018-03-18] MEDS: Vasostrict 20 UNIT in NACL 0.9% 100 ML IV SCH ×2 (08:36→19:11)
--- NOTE | 2018-03-18 09:27 | Progress Note ---
Assessment and Plan Assessment and plan: Cardiopulmonary arrest today x 3 on morning of 03/15/18. On 03/15/17, Dilan rose called at 07:04, for asystole after bradycardia, code run per ACLS protocol. She had CPR done and was given multiple doses of E pinephrine, Bicarb, Atropine. Patient resuscitated, got pulse 07:18. Cardiac arrest again at 07:33, resuscitated at 07:48 after CPR and multiple doses of Epinephrine. cardiac arrest at 08:49 again and she was again resuscitated, regained pulse at 09:01 Later discussed with Pulmonology. Sepsis/septic shock. Continue IV antibiotics. Cont. pressors to maintain MAP>65. patient on levophed, vasopressin, Dopamine Patient with elevated lactic acid UTI. Acute hypoxemic respiratory failure. Pulm following Anoxic encephalopathy after 3 episodes of cardiopulm arrest. consulted Neurology discussed with Dr. Geoffrey CHAVEZ. Cont current abx. F/U serial CXR Diabetes mellitus type 2. Continue Accu-Cheks and sliding scale insulin. Toxic metabolic encephalopathy. Continue to treat underlying causes. Hypernatremia. Continue free water and D5W IV fluids. Hypokalemia. Replace and rwecheck in am hypomagnesemia. replaced Acute renal failure due to ATN, hypotension. This is worsening. Creatinine 2.5 today Consulted Nephro Full code status Very Poor prognosis Discussed with daughter. She wants everything done-full code. The high probability of a clinically significant, sudden or life threatening deterioration of the [4] system(s) required my full and direct attention, intervention and personal management. The aggregate critical care time was [33] minutes. This time is in addition to time spent performing reported procedures but includes the following: [x] Data Review and interpretation [x] Patient assessment and monitoring of vital signs [x] Documentation [x] Medication orders and management History Interval history: Patient had cardiopulmonary arrest X 3 on 03/15/18 Now unresponsive Still on multiple pressors Hospitalist Physical - Physical exam Narrative exam: GEN: Not in acute distress, intubated HEENT: Normocephalic, atraumatic, Neck: supple, No JVD Lungs: Clear to auscultation, no wheeze Heart:S1 and S2 regular, no murmurs, rubs or gallop, Abd:soft, non tender, non distended, normal bowel sounds Ext: No edema, no clubbing or cyanosis Neuro: Intubated, unresponsive, pupils fixed, no corneal reflex - Constitutional Vitals: Temp Pulse Resp BP Pulse Ox 97.9 F 101 H 30 H 111/69 98 03/18/18 04:00 03/18/18 09:03 03/18/18 09:03 03/18/18 08:20 03/18/18 08:20 Results - Labs CBC & Chem 7: 03/18/18 03:56 03/18/18 03:56 Labs: Laboratory Last Values WBC 5.0 K/mm3 (4.5-11.0) 03/18/18 03:56 RBC 3.15 M/mm3 (3.65-5.03) L 03/18/18 03:56 Hgb 7.8 gm/dl (10.1-14.3) L 03/18/18 03:56 Hct 23.7 % (30.3-42.9) L 03/18/18 03:56 MCV 75 fl (79-97) L 03/18/18 03:56 MCH 25 pg (28-32) L 03/18/18 03:56 MCHC 33 % (30-34) 03/18/18 03:56 RDW 18.3 % (13.2-15.2) H 03/18/18 03:56 Plt Count 16 K/mm3 (140-440) L* 03/18/18 03:56 Lymph % (Auto) Bundle Tier 03/11/18 14:20 [place] % (Auto) Bundle Tier 03/11/18 14:20 Eos % (Auto) Bundle Tier 03/11/18 14:20 Baso % (Auto) Bundle Tier 03/11/18 14:20 Lymph # Bundle Tier 03/11/18 14:20 [place] # Bundle Tier 03/11/18 14:20 Eos # Bundle Tier 03/11/18 14:20 Baso # Bundle Tier 03/11/18 14:20 Add Manual Diff Complete 03/14/18 04:58 Total Counted 100 03/14/18 04:58 Seg Neutrophils % Bundle Tier 03/14/18 04:58 Seg Neuts % (Manual) 83.0 % (40.0-70.0) H 03/14/18 04:58 Band Neutrophils % 8.0 % 03/14/18 04:58 Lymphocytes % (Manual) 7.0 % (13.4-35.0) L 03/14/18 04:58 Reactive Lymphs % (Man) 0 % 03/14/18 04:58 Monocytes % (Manual) 1.0 % (0.0-7.3) 03/14/18 04:58 Eosinophils % (Manual) 1.0 % (0.0-4.3) 03/14/18 04:58 Basophils % (Manual) 0 % (0.0-1.8) 03/14/18 04:58 Metamyelocytes % 0 % 03/14/18 04:58 Myelocytes % 0 % 03/14/18 04:58 Promyelocytes % 0 % 03/14/18 04:58 Blast Cells % 0 % 03/14/18 04:58 Nucleated RBC % Not Reportable 03/14/18 04:58 Seg Neutrophils # Bundle Tier 03/11/18 14:20 Seg Neutrophils # Man 4.9 K/mm3 (1.8-7.7) 03/14/18 04:58 Band Neutrophils # 0.5 K/mm3 03/14/18 04:58 Lymphocytes # (Manual) 0.4 K/mm3 (1.2-5.4) L 03/14/18 04:58 Abs React Lymphs (Man) 0.0 K/mm3 03/14/18 04:58 Monocytes # (Manual) 0.1 K/mm3 (0.0-0.8) 03/14/18 04:58 Eosinophils # (Manual) 0.1 K/mm3 (0.0-0.4) 03/14/18 04:58 Basophils # (Manual) 0.0 K/mm3 (0.0-0.1) 03/14/18 04:58 Metamyelocytes # 0.0 K/mm3 03/14/18 04:58 Myelocytes # 0.0 K/mm3 03/14/18 04:58 Promyelocytes # 0.0 K/mm3 03/14/18 04:58 Blast Cells # 0.0 K/mm3 03/14/18 04:58 WBC Morphology Not Reportable 03/14/18 04:58 Hypersegmented Neuts Not Reportable 03/14/18 04:58 Hyposegmented Neuts Not Reportable 03/14/18 04:58 Hypogranular Neuts Not Reportable 03/14/18 04:58 Smudge Cells Not Reportable 03/14/18 04:58 Toxic Granulation Not Reportable 03/14/18 04:58 Toxic Vacuolation Not Reportable 03/14/18 04:58 Dohle Bodies Not Reportable 03/14/18 04:58 Pelger-Huet Anomaly Not Reportable 03/14/18 04:58 Jimbo Rods Not Reportable 03/14/18 04:58 Platelet Estimate Consistent w auto 03/14/18 04:58 Clumped Platelets Not Reportable 03/14/18 04:58 Plt Clumps, EDTA Not Reportable 03/14/18 04:58 Large Platelets Not Reportable 03/14/18 04:58 Giant Platelets Not Reportable 03/14/18 04:58 Platelet Satelliting Not Reportable 03/14/18 04:58 Plt Morphology Comment Not Reportable 03/14/18 04:58 RBC Morphology Not Reportable 03/14/18 04:58 Dimorphic RBCs Not Reportable 03/14/18 04:58 Polychromasia Not Reportable 03/14/18 04:58 Hypochromasia 2+ 03/14/18 04:58 Poikilocytosis 1+ 03/14/18 04:58 Anisocytosis 1+ 03/14/18 04:58 Microcytosis 1+ 03/14/18 04:58 Macrocytosis Not Reportable 03/14/18 04:58 Spherocytes Not Reportable 03/14/18 04:58 Pappenheimer Bodies Not Reportable 03/14/18 04:58 Sickle Cells Not Reportable 03/14/18 04:58 Target Cells Few 03/14/18 04:58 Tear Drop Cells Rare 03/14/18 04:58 Ovalocytes Few 03/14/18 04:58 Helmet Cells Not Reportable 03/14/18 04:58 Nolen-Monson Bodies Not Reportable 03/14/18 04:58 [place] Rings Not Reportable 03/14/18 04:58 Marco Cells Not Reportable 03/14/18 04:58 Bite Cells Not Reportable 03/14/18 04:58 Crenated Cell Not Reportable 03/14/18 04:58 Elliptocytes Rare 03/14/18 04:58 Acanthocytes (Spur) Not Reportable 03/14/18 04:58 Rouleaux Not Reportable 03/14/18 04:58 Hemoglobin C Crystals Not Reportable 03/14/18 04:58 Schistocytes Not Reportable 03/14/18 04:58 Malaria parasites Not Reportable 03/14/18 04:58 Justino Bodies Not Reportable 03/14/18 04:58 Hem Pathologist Commnt No 03/14/18 04:58 APTT 28.2 Sec. (24.2-36.6) 03/11/18 14:44 POC ABG pH 7.316 (7.35-7.45) L 03/18/18 04:27 POC ABG pCO2 64.5 (35-45) H 03/18/18 04:27 POC ABG pO2 106 (80-105) H 03/18/18 04:27 POC ABG HCO3 32.9 03/18/18 04:27 POC ABG Total CO2 35 03/18/18 04:27 POC ABG O2 Sat 97 03/18/18 04:27 POC ABG Base Excess 7 03/18/18 04:27 FiO2 100 % 03/18/18 04:27 Sodium 142 mmol/L (137-145) 03/18/18 03:56 Potassium 3.1 mmol/L (3.6-5.0) L 03/18/18 03:56 Chloride 94.2 mmol/L (98-107) L 03/18/18 03:56 Carbon Dioxide 32 mmol/L (22-30) H 03/18/18 03:56 Anion Gap 19 mmol/L 03/18/18 03:56 BUN 43 mg/dL (7-17) H 03/18/18 03:56 Creatinine 2.5 mg/dL (0.7-1.2) H 03/18/18 03:56 Estimated GFR 24 ml/min 03/18/18 03:56 BUN/Creatinine Ratio 17 % 03/18/18 03:56 Glucose 115 mg/dL (65-100) H 03/18/18 03:56 POC Glucose 134 (70-105) H 03/18/18 05:12 Lactic Acid 2.40 mmol/L (0.7-2.0) H* 03/12/18 03:38 Calcium 7.0 mg/dL (8.4-10.2) L 03/18/18 03:56 Phosphorus 4.70 mg/dL (2.5-4.5) H 03/15/18 07:30 Magnesium 3.90 mg/dL (1.7-2.3) H 03/15/18 07:30 Total Bilirubin 0.20 mg/dL (0.1-1.2) 03/15/18 07:30 AST 169 units/L (5-40) H 03/15/18 07:30 ALT 47 units/L (7-56) 03/15/18 07:30 Alkaline Phosphatase 88 units/L (35-129) 03/15/18 07:30 Total Creatine Kinase 1434 units/L (30-135) H 03/11/18 14:20 Total Protein 4.3 g/dL (6.3-8.2) L D 03/15/18 07:30 Albumin 1.4 g/dL (3.9-5) L 03/15/18 07:30 Albumin/Globulin Ratio 0.5 % 03/15/18 07:30 Urine Color Yellow (Yellow) 03/11/18 14:50 Urine Turbidity Slightly-cloudy (Clear) 03/11/18 14:50 Urine pH 5.0 (5.0-7.0) 03/11/18 14:50 Ur Specific [place] 1.020 (1.003-1.030) 03/11/18 14:50 Urine Protein 30 mg/dl mg/dL (Negative) 03/11/18 14:50 Urine Glucose (UA) >=500 mg/dL (Negative) 03/11/18 14:50 Urine Ketones Neg mg/dL (Negative) 03/11/18 14:50 Urine Blood Mod (Negative) 03/11/18 14:50 Urine Nitrite Neg (Negative) 03/11/18 14:50 Urine Bilirubin Neg (Negative) 03/11/18 14:50 Urine Urobilinogen 4.0 mg/dL (<2.0) 03/11/18 14:50 Ur Leukocyte Esterase Neg (Negative) 03/11/18 14:50 Urine WBC (Auto) 7.0 /HPF (0.0-6.0) H 03/11/18 14:50 Urine RBC (Auto) 3.0 /HPF (0.0-6.0) 03/11/18 14:50 U Epithel Cells (Auto) < 1.0 /HPF (0-13.0) 03/11/18 14:50 Urine Mucus Few /HPF 03/11/18 14:50 Urine Yeast (Budding) 1+ /HPF 03/11/18 14:50 Vancomycin Trough 23.7 ug/mL (5.0-20.0) H 03/16/18 00:30 Random Vancomycin 28.1 ug/mL (0-40.0) 03/18/18 03:56 Blood Type O POSITIVE 03/15/18 10:30 Antibody Screen Negative 03/15/18 10:30 Crossmatch See Detail 03/15/18 10:30 Nutrition/Malnutrition Assess - Dietary Evaluation Nutrition/Malnutrition Findings: Nutrition Notes Start: 03/12/18 09:05 Freq: Status: Active Protocol: Document 03/14/18 13:40 LAURA (Rec: 03/14/18 13:47 LAURA [id number] [email or web address]) Nutrition Notes Initial or Follow up Reassessment Current Diagnoses Diabetes Sepsis Respiratory Failure Other Pertinent Diagnosis UTI, pneu Current Diet TF - Glucerna 1.2 at 50ml/hr Labs/Tests Na 150 K 2.4 Mg 1.3 Medications Mag sulfate x 1, 40mEq KCl x 1 , Propofol at 4.5ml/hr ( provides 119 kcal from fat) Height 5 ft 5 in Weight 50.6 kg [place] Body Weight (lbs) 125.0 BMI 18.6 Weight change and time frame Current wt obtained from bed scale Weight Status Underweight Subjective/Other Information Pt remains on vent support. She is tolerating TF at goal rate, per RN. RN flushing with 200ml water q4h. Percent of energy/protein needs met: 100% energy and pro Burn Absent Trauma Absent #1 Nutrition Diagnoses Inadequate oral intake Diagnosis Progress(for reassessment Continues documentation) Is patient on ventilator? Yes Is Patient Ambulatory and/or Out of Bed No REE-([facility]-confined to bed) 1309.212 Kcal/Kg value to use for calculation 35 Approximate Energy Requirements Using 1771 kcal/Kg Calculation Used for Recommendations Kcal/kg Additional Notes Pro needs 1.2-2g/k-101g/ day Fluid needs 1ml/kcal Nutrition Intervention Nutrition Support: Continue Glucerna 1.2 at 50mL/ hr. 200mL flush q4h Kcal 1,440 Protein (gm) 72 Fluid (mL) 966 Goal #1 TF tolerance Goal #2 TF to meet 100% nutrient needs Goal #3 Wt maintenance and/or gain Follow-Up By: 03/20/18 Additional Comments F/U: stable TF, vent status, Na lab/need for 200ml q4h water flush, propofol
[2018-03-18] MEDS: PEPCID IV SCH (10:22)
[2018-03-18] MEDS: MAXIPIME/NS 2 GM/100 ML 2 GM/100 ML BAG IV SCH (10:23)
[2018-03-18] MEDS: SODIUM CHLORIDE FLUSH SYRINGE 10 ML IV SCH (10:23)
[2018-03-18] MEDS: VASELINE LIP THERAPY TP PRN (10:29)
--- NOTE | 2018-03-18 13:03 | Progress Note ---
Assessment and Plan Acute Hypoxemic Respiratory Failure Severe Sepsis with Shock ARDS UTI (urinary tract infection) due to urinary indwelling catheter Encephalopathy Thrombocytopenia Mixed Acidosis Diabetes mellitus DVT prophylaxis (Patient too unstable to send for neuroimaging or NM brain flow scan at this point and more unstable today) - increased TV to 550 mls re: hypercapnic acidosis component - continue bicarbonate drip - continue to wean oxygen to keep sats > 90% - keep Peep at 10 cmH2O (re: Hypotension) - LTVV strategies otherwise - VAP bundle addressed - replacing potassium aggressively - continue Severe sepsis protocol - continue Vasopressor support and wean for target MAP > 65 mmHg - daily ABG's acutely - CT chest demonstrates dense bibasilar consolidation with cavitation vs infected bullae in LLL in particular - continue empiric antibiotic therapy, target HAP - continue and de-escalate AB's per ID recs - follow Blood, urine and sputum cultures - GI & VTE prophylaxis - Aspiration precautions - hypernatremia resolved - enteral nutrition as tolerated - Monitor fever curve, - get CRP and trend with lactic acid levels prn to aid clinical decision making - Strict intake and output in this critically ill patient - continue other care per attending / other consultants ... very poor prognosis The high probability of a clinically significant, sudden or life threatening deterioration of the [cardiac, renal, neuro, respiratory] system(s) required my full and direct attention, intervention and personal management. The aggregate critical care time was [35] minutes. This time is in addition to time spent performing reported procedures but includes the following: [x] Data Review and interpretation [x] Patient assessment and monitoring of vital signs [x] Documentation [x] Medication orders and management Subjective Date of service: 03/18/18 Principal diagnosis: Acute Hypoxemic Respiratory Failure; Severe Sepsis with Shock; ARDS; UTI Interval history: Patient is seen today for: Acute Hypoxemic Respiratory Failure; Severe Sepsis with Shock; ARDS; UTI; Acute Encephalopathy Seen and examined at bedside; 24hour events reviewed; nursing and respiratory care staff consulted; no adverse overnight events reported to me; remains on MVS; remains on multiple vasopressors; worsening hypercapnic acidosis despite increased minute ventilation; AMS is persistent Objective Vital Signs - 12hr 03/18/18 03/18/18 03/18/18 01:10 01:20 01:30 Temperature Pulse Rate 102 H 103 H 102 H Pulse Rate [ Anterior Bilateral Throughout] Pulse Rate [ From Monitor] Respiratory 30 H 30 H 26 H Rate Respiratory Rate [Anterior Bilateral Throughout] Blood Pressure 113/73 113/73 113/67 O2 Sat by Pulse 99 99 97 Oximetry 03/18/18 03/18/18 03/18/18 01:40 01:50 02:00 Temperature Pulse Rate 104 H 103 H 102 H Pulse Rate [ Anterior Bilateral Throughout] Pulse Rate [ From Monitor] Respiratory 30 H 30 H 30 H Rate Respiratory Rate [Anterior Bilateral Throughout] Blood Pressure 113/67 113/67 92/74 O2 Sat by Pulse 99 100 100 Oximetry 03/18/18 03/18/18 03/18/18 02:05 02:10 02:20 Temperature Pulse Rate 104 H 106 H Pulse Rate [ 102 H Anterior Bilateral Throughout] Pulse Rate [ From Monitor] Respiratory 30 H 30 H Rate Respiratory 30 H Rate [Anterior Bilateral Throughout] Blood Pressure 113/67 113/67 O2 Sat by Pulse 96 95 Oximetry 03/18/18 03/18/18 03/18/18 02:25 02:30 02:40 Temperature Pulse Rate 106 H 107 H Pulse Rate [ 106 H Anterior Bilateral Throughout] Pulse Rate [ From Monitor] Respiratory 30 H 30 H Rate Respiratory 30 H Rate [Anterior Bilateral Throughout] Blood Pressure 133/83 133/83 O2 Sat by Pulse 95 95 Oximetry 03/18/18 03/18/18 03/18/18 02:50 03:00 03:10 Temperature Pulse Rate 105 H 104 H 104 H Pulse Rate [ Anterior Bilateral Throughout] Pulse Rate [ From Monitor] Respiratory 30 H 30 H 30 H Rate Respiratory Rate [Anterior Bilateral Throughout] Blood Pressure 133/83 134/74 134/74 O2 Sat by Pulse 99 100 100 Oximetry 03/18/18 03/18/18 03/18/18 03:20 03:30 03:40 Temperature Pulse Rate 103 H 114 H 102 H Pulse Rate [ Anterior Bilateral Throughout] Pulse Rate [ From Monitor] Respiratory 30 H 30 H 30 H Rate Respiratory Rate [Anterior Bilateral Throughout] Blood Pressure 133/83 175/102 175/102 O2 Sat by Pulse 100 95 97 Oximetry 03/18/18 03/18/18 03/18/18 03:50 04:00 04:10 Temperature 97.9 F Pulse Rate 105 H 105 H 101 H Pulse Rate [ Anterior Bilateral Throughout] Pulse Rate [ 105 H From Monitor] Respiratory 30 H 30 H 30 H Rate Respiratory Rate [Anterior Bilateral Throughout] Blood Pressure 102/57 132/74 132/74 O2 Sat by Pulse 98 98 100 Oximetry 03/18/18 03/18/18 03/18/18 04:20 04:23 04:30 Temperature Pulse Rate 100 H 101 H 101 H Pulse Rate [ Anterior Bilateral Throughout] Pulse Rate [ From Monitor] Respiratory 30 H 30 H Rate Respiratory Rate [Anterior Bilateral Throughout] Blood Pressure 132/74 132/74 122/68 O2 Sat by Pulse 100 100 100 Oximetry 03/18/18 03/18/18 03/18/18 04:40 04:50 05:00 Temperature Pulse Rate 102 H 102 H 102 H Pulse Rate [ Anterior Bilateral Throughout] Pulse Rate [ From Monitor] Respiratory 30 H 30 H 30 H Rate Respiratory Rate [Anterior Bilateral Throughout] Blood Pressure 122/68 122/68 131/65 O2 Sat by Pulse 100 100 100 Oximetry 03/18/18 03/18/18 03/18/18 05:10 05:20 05:27 Temperature Pulse Rate 102 H 102 H Pulse Rate [ Anterior Bilateral Throughout] Pulse Rate [ 102 H From Monitor] Respiratory 30 H 30 H 30 H Rate Respiratory Rate [Anterior Bilateral Throughout] Blood Pressure 131/65 131/65 O2 Sat by Pulse 100 100 97 Oximetry 03/18/18 03/18/18 03/18/18 05:30 05:40 05:50 Temperature Pulse Rate 103 H 102 H 102 H Pulse Rate [ Anterior Bilateral Throughout] Pulse Rate [ From Monitor] Respiratory 30 H 30 H 30 H Rate Respiratory Rate [Anterior Bilateral Throughout] Blood Pressure 137/84 137/84 137/84 O2 Sat by Pulse 100 100 100 Oximetry 03/18/18 03/18/18 03/18/18 06:00 06:10 06:20 Temperature Pulse Rate 102 H 102 H 103 H Pulse Rate [ Anterior Bilateral Throughout] Pulse Rate [ From Monitor] Respiratory 30 H 30 H 30 H Rate Respiratory Rate [Anterior Bilateral Throughout] Blood Pressure 138/69 138/69 138/69 O2 Sat by Pulse 100 100 100 Oximetry 03/18/18 03/18/18 03/18/18 06:30 06:40 06:50 Temperature Pulse Rate 102 H 102 H 102 H Pulse Rate [ Anterior Bilateral Throughout] Pulse Rate [ From Monitor] Respiratory 30 H 30 H 30 H Rate Respiratory Rate [Anterior Bilateral Throughout] Blood Pressure 110/64 110/64 110/64 O2 Sat by Pulse 100 99 99 Oximetry 03/18/18 03/18/18 03/18/18 07:00 07:10 07:20 Temperature Pulse Rate 103 H 102 H 102 H Pulse Rate [ Anterior Bilateral Throughout] Pulse Rate [ From Monitor] Respiratory 30 H 30 H 30 H Rate Respiratory Rate [Anterior Bilateral Throughout] Blood Pressure 117/71 117/71 117/71 O2 Sat by Pulse 99 99 99 Oximetry 03/18/18 03/18/18 03/18/18 07:30 07:40 07:50 Temperature Pulse Rate 100 H 103 H 106 H Pulse Rate [ Anterior Bilateral Throughout] Pulse Rate [ From Monitor] Respiratory 30 H 30 H 30 H Rate Respiratory Rate [Anterior Bilateral Throughout] Blood Pressure 85/48 85/48 85/48 O2 Sat by Pulse 98 97 99 Oximetry 03/18/18 03/18/18 03/18/18 08:00 08:10 08:20 Temperature 97.5 F L Pulse Rate 102 H 102 H 102 H Pulse Rate [ Anterior Bilateral Throughout] Pulse Rate [ 101 H From Monitor] Respiratory 30 H 30 H 30 H Rate Respiratory Rate [Anterior Bilateral Throughout] Blood Pressure 96/45 111/69 111/69 O2 Sat by Pulse 98 98 98 Oximetry 03/18/18 03/18/18 03/18/18 08:30 08:40 08:50 Temperature Pulse Rate 102 H 101 H 102 H Pulse Rate [ Anterior Bilateral Throughout] Pulse Rate [ From Monitor] Respiratory 30 H 30 H 30 H Rate Respiratory Rate [Anterior Bilateral Throughout] Blood Pressure 115/64 115/64 115/64 O2 Sat by Pulse 98 98 98 Oximetry 03/18/18 03/18/18 03/18/18 09:00 09:03 09:10 Temperature Pulse Rate 101 H 102 H Pulse Rate [ 101 H Anterior Bilateral Throughout] Pulse Rate [ From Monitor] Respiratory 30 H 30 H Rate Respiratory 30 H Rate [Anterior Bilateral Throughout] Blood Pressure 115/64 105/60 O2 Sat by Pulse 98 99 Oximetry 03/18/18 03/18/18 03/18/18 09:20 09:30 09:40 Temperature Pulse Rate 102 H 105 H 106 H Pulse Rate [ Anterior Bilateral Throughout] Pulse Rate [ From Monitor] Respiratory 30 H 30 H 30 H Rate Respiratory Rate [Anterior Bilateral Throughout] Blood Pressure 105/60 109/72 109/72 O2 Sat by Pulse 98 92 92 Oximetry 03/18/18 03/18/18 03/18/18 09:50 10:00 10:10 Temperature Pulse Rate 104 H 104 H 103 H Pulse Rate [ Anterior Bilateral Throughout] Pulse Rate [ From Monitor] Respiratory 30 H 29 H 30 H Rate Respiratory Rate [Anterior Bilateral Throughout] Blood Pressure 99/63 99/63 O2 Sat by Pulse 97 98 98 Oximetry 03/18/18 03/18/18 03/18/18 10:20 10:30 10:40 Temperature Pulse Rate 104 H 103 H 102 H Pulse Rate [ Anterior Bilateral Throughout] Pulse Rate [ From Monitor] Respiratory 30 H 30 H 30 H Rate Respiratory Rate [Anterior Bilateral Throughout] Blood Pressure 99/63 107/65 107/65 O2 Sat by Pulse 98 97 97 Oximetry 03/18/18 03/18/18 03/18/18 10:50 11:00 11:10 Temperature Pulse Rate 101 H 100 H 101 H Pulse Rate [ Anterior Bilateral Throughout] Pulse Rate [ From Monitor] Respiratory 30 H 30 H 30 H Rate Respiratory Rate [Anterior Bilateral Throughout] Blood Pressure 107/65 88/41 88/41 O2 Sat by Pulse 97 95 98 Oximetry 03/18/18 03/18/18 03/18/18 11:20 11:30 11:40 Temperature Pulse Rate 103 H 103 H 103 H Pulse Rate [ Anterior Bilateral Throughout] Pulse Rate [ From Monitor] Respiratory 30 H 30 H 30 H Rate Respiratory Rate [Anterior Bilateral Throughout] Blood Pressure 88/41 100/56 100/56 O2 Sat by Pulse 98 98 98 Oximetry 03/18/18 03/18/18 03/18/18 11:50 12:00 12:10 Temperature 98.5 F Pulse Rate 102 H 102 H 102 H Pulse Rate [ Anterior Bilateral Throughout] Pulse Rate [ 105 H From Monitor] Respiratory 30 H 30 H 30 H Rate Respiratory Rate [Anterior Bilateral Throughout] Blood Pressure 100/56 106/57 100/56 O2 Sat by Pulse 98 93 97 Oximetry 03/18/18 03/18/18 03/18/18 12:20 12:30 12:40 Temperature Pulse Rate 103 H 104 H 104 H Pulse Rate [ Anterior Bilateral Throughout] Pulse Rate [ From Monitor] Respiratory 30 H 30 H 30 H Rate Respiratory Rate [Anterior Bilateral Throughout] Blood Pressure 100/56 97/54 106/57 O2 Sat by Pulse 96 95 94 Oximetry 03/18/18 12:50 Temperature Pulse Rate 105 H Pulse Rate [ Anterior Bilateral Throughout] Pulse Rate [ From Monitor] Respiratory 30 H Rate Respiratory Rate [Anterior Bilateral Throughout] Blood Pressure 106/57 O2 Sat by Pulse 94 Oximetry Constitutional: appears uncomfortable, other (middle aged chronically ill looking AAF; normocephalic with moderately increased rsepiratory effort on BIPAP) Eyes: non-icteric ENT: oropharynx moist, other (ETT 23 cm YOLANDA) Neck: supple, no lymphadenopathy, no JVD, other (no thyromegaly) Effort: mildly labored Ascultation: Bilateral: diminished breath sounds, rhonchi Percussion: Bilateral: not dull Cardiovascular: regular rate and rhythm Gastrointestinal: normoactive bowel sounds, soft, non-tender, non-distended Integumentary: other (poor turgor) Extremities: no cyanosis, no edema, pulses normal, no ischemia or petechiae Neurologic: unable to assess, other (Obtunded) Psychiatric: other (encephalopathic) CBC and BMP: 03/18/18 03:56 03/18/18 03:56 ABG, PT/INR, D-dimer: ABG POC ABG pH 7.316 (7.35-7.45) L 03/18/18 04:27 POC ABG pCO2 64.5 (35-45) H 03/18/18 04:27 POC ABG pO2 106 (80-105) H 03/18/18 04:27 POC ABG HCO3 32.9 03/18/18 04:27 POC ABG Total CO2 35 03/18/18 04:27 POC ABG O2 Sat 97 03/18/18 04:27 Abnormal lab findings: Abnormal Labs 03/11/18 03/11/18 03/11/18 14:20 14:20 14:20 WBC RBC Hgb 10.0 L Hct MCV 74 L MCH 23 L RDW Plt Count Seg Neuts % (Manual) 89.0 H Lymphocytes % (Manual) 8.0 L Nucleated RBC % Lymphocytes # (Manual) 0.4 L POC ABG pH POC ABG pCO2 POC ABG pO2 Sodium 160 H Potassium Chloride 118.4 H Carbon Dioxide BUN 64 H Creatinine 1.5 H Glucose 592 H* POC Glucose Lactic Acid 7.20 H* Calcium Phosphorus Magnesium AST 60 H Total Creatine Kinase 1434 H Total Protein Albumin 2.0 L Urine WBC (Auto) Vancomycin Trough Crossmatch 12/03/11/18 03/11/18 14:50 15:04 15:08 WBC RBC Hgb Hct MCV MCH RDW Plt Count Seg Neuts % (Manual) Lymphocytes % (Manual) Nucleated RBC % Lymphocytes # (Manual) POC ABG pH POC ABG pCO2 POC ABG pO2 61 L Sodium Potassium Chloride Carbon Dioxide BUN Creatinine Glucose POC Glucose Lactic Acid 6.60 H* Calcium Phosphorus Magnesium AST Total Creatine Kinase Total Protein Albumin Urine WBC (Auto) 7.0 H Vancomycin Trough Crossmatch 03/11/18 03/11/18 03/11/18 16:38 16:40 19:36 WBC RBC Hgb Hct MCV MCH RDW Plt Count Seg Neuts % (Manual) Lymphocytes % (Manual) Nucleated RBC % Lymphocytes # (Manual) POC ABG pH POC ABG pCO2 POC ABG pO2 Sodium Potassium Chloride Carbon Dioxide BUN Creatinine Glucose POC Glucose 314 H Lactic Acid 5.40 H* 3.70 H* Calcium Phosphorus Magnesium AST Total Creatine Kinase Total Protein Albumin Urine WBC (Auto) Vancomycin Trough Crossmatch 03/11/18 03/11/18 03/11/18 19:36 19:36 20:33 WBC RBC Hgb Hct MCV MCH RDW Plt Count Seg Neuts % (Manual) Lymphocytes % (Manual) Nucleated RBC % Lymphocytes # (Manual) POC ABG pH POC ABG pCO2 POC ABG pO2 Sodium 165 H* Potassium 3.1 L Chloride 128.9 H Carbon Dioxide BUN 45 H Creatinine Glucose 230 H POC Glucose Lactic Acid 3.70 H* 4.00 H* Calcium 7.4 L Phosphorus Magnesium AST Total Creatine Kinase Total Protein Albumin Urine WBC (Auto) Vancomycin Trough Crossmatch 03/11/18 03/11/18 03/11/18 20:53 23:37 23:42 WBC RBC Hgb Hct MCV MCH RDW Plt Count Seg Neuts % (Manual) Lymphocytes % (Manual) Nucleated RBC % Lymphocytes # (Manual) POC ABG pH 7.298 L POC ABG pCO2 POC ABG pO2 65 L Sodium Potassium Chloride Carbon Dioxide BUN Creatinine Glucose POC Glucose 235 H Lactic Acid 2.30 H* Calcium Phosphorus Magnesium AST Total Creatine Kinase Total Protein Albumin Urine WBC (Auto) Vancomycin Trough Crossmatch 03/12/18 03/12/18 03/12/18 01:44 03:38 05:15 WBC RBC Hgb Hct MCV MCH RDW Plt Count Seg Neuts % (Manual) Lymphocytes % (Manual) Nucleated RBC % Lymphocytes # (Manual) POC ABG pH POC ABG pCO2 POC ABG pO2 Sodium Potassium Chloride Carbon Dioxide BUN Creatinine Glucose POC Glucose 303 H Lactic Acid 2.30 H* 2.40 H* Calcium Phosphorus Magnesium AST Total Creatine Kinase Total Protein Albumin Urine WBC (Auto) Vancomycin Trough Crossmatch 03/12/18 03/12/18 03/12/18 08:22 11:14 18:23 WBC RBC Hgb Hct MCV MCH RDW Plt Count Seg Neuts % (Manual) Lymphocytes % (Manual) Nucleated RBC % Lymphocytes # (Manual) POC ABG pH POC ABG pCO2 31.8 L POC ABG pO2 48 L Sodium Potassium Chloride Carbon Dioxide BUN Creatinine Glucose POC Glucose 209 H 255 H Lactic Acid Calcium Phosphorus Magnesium AST Total Creatine Kinase Total Protein Albumin Urine WBC (Auto) Vancomycin Trough Crossmatch 03/12/18 03/12/18 03/13/18 19:06 23:45 03:00 WBC RBC 3.35 L Hgb 7.7 L Hct 24.8 L D MCV 74 L MCH 23 L RDW Plt Count 139 L Seg Neuts % (Manual) 75.0 H Lymphocytes % (Manual) 8.0 L Nucleated RBC % 1.0 H Lymphocytes # (Manual) 0.4 L POC ABG pH 7.220 L POC ABG pCO2 57.3 H POC ABG pO2 52 L Sodium Potassium Chloride Carbon Dioxide BUN Creatinine Glucose POC Glucose 227 H Lactic Acid Calcium Phosphorus Magnesium AST Total Creatine Kinase Total Protein Albumin Urine WBC (Auto) Vancomycin Trough Crossmatch 03/13/18 03/13/18 03/13/18 03:00 05:14 05:47 WBC RBC Hgb Hct MCV MCH RDW Plt Count Seg Neuts % (Manual) Lymphocytes % (Manual) Nucleated RBC % Lymphocytes # (Manual) POC ABG pH 7.187 L POC ABG pCO2 65.6 H POC ABG pO2 Sodium 157 H Potassium 2.6 L* Chloride 120.3 H Carbon Dioxide BUN 18 H Creatinine Glucose 314 H POC Glucose 364 H Lactic Acid Calcium 7.4 L Phosphorus Magnesium AST Total Creatine Kinase Total Protein Albumin Urine WBC (Auto) Vancomycin Trough Crossmatch 03/13/18 03/13/18 03/13/18 12:32 18:08 23:31 WBC RBC Hgb Hct MCV MCH RDW Plt Count Seg Neuts % (Manual) Lymphocytes % (Manual) Nucleated RBC % Lymphocytes # (Manual) POC ABG pH POC ABG pCO2 POC ABG pO2 Sodium Potassium Chloride Carbon Dioxide BUN Creatinine Glucose POC Glucose 304 H 169 H 125 H Lactic Acid Calcium Phosphorus Magnesium AST Total Creatine Kinase Total Protein Albumin Urine WBC (Auto) Vancomycin Trough Crossmatch 03/14/18 03/14/18 03/14/18 04:56 04:58 04:58 WBC RBC 3.16 L Hgb 7.3 L Hct 23.0 L MCV 73 L MCH 23 L RDW Plt Count 114 L Seg Neuts % (Manual) 83.0 H Lymphocytes % (Manual) 7.0 L Nucleated RBC % Lymphocytes # (Manual) 0.4 L POC ABG pH POC ABG pCO2 POC ABG pO2 Sodium 150 H Potassium 2.4 L* Chloride 111.0 H Carbon Dioxide BUN Creatinine 0.5 L Glucose 139 H POC Glucose 185 H Lactic Acid Calcium 7.2 L Phosphorus Magnesium AST Total Creatine Kinase Total Protein Albumin Urine WBC (Auto) Vancomycin Trough Crossmatch 03/14/18 03/14/18 03/14/18 04:58 05:01 12:03 WBC RBC Hgb Hct MCV MCH RDW Plt Count Seg Neuts % (Manual) Lymphocytes % (Manual) Nucleated RBC % Lymphocytes # (Manual) POC ABG pH POC ABG pCO2 POC ABG pO2 140 H Sodium Potassium Chloride Carbon Dioxide BUN Creatinine Glucose POC Glucose 212 H Lactic Acid Calcium Phosphorus Magnesium 1.30 L AST Total Creatine Kinase Total Protein Albumin Urine WBC (Auto) Vancomycin Trough Crossmatch 03/14/18 03/14/18 03/15/18 18:06 23:10 05:11 WBC RBC Hgb Hct MCV MCH RDW Plt Count Seg Neuts % (Manual) Lymphocytes % (Manual) Nucleated RBC % Lymphocytes # (Manual) POC ABG pH POC ABG pCO2 POC ABG pO2 Sodium 149 H Potassium 3.0 L D Chloride 111.1 H Carbon Dioxide BUN Creatinine Glucose 255 H POC Glucose 212 H 226 H Lactic Acid Calcium 7.1 L Phosphorus Magnesium AST Total Creatine Kinase Total Protein Albumin Urine WBC (Auto) Vancomycin Trough Crossmatch 03/15/18 03/15/18 03/15/18 05:11 05:11 05:44 WBC 4.4 L RBC 2.93 L Hgb 6.7 L Hct 21.3 L MCV 73 L MCH 23 L RDW Plt Count 87 L Seg Neuts % (Manual) Lymphocytes % (Manual) Nucleated RBC % Lymphocytes # (Manual) POC ABG pH 7.256 L POC ABG pCO2 67.6 H POC ABG pO2 45 L Sodium Potassium Chloride Carbon Dioxide BUN Creatinine Glucose POC Glucose 298 H Lactic Acid Calcium Phosphorus Magnesium AST Total Creatine Kinase Total Protein Albumin Urine WBC (Auto) Vancomycin Trough Crossmatch 03/15/18 03/15/18 03/15/18 05:54 07:30 07:30 WBC 3.1 L RBC 2.67 L Hgb 6.2 L Hct 20.5 L MCV 77 L MCH 23 L RDW 15.9 H Plt Count 90 L Seg Neuts % (Manual) Lymphocytes % (Manual) Nucleated RBC % Lymphocytes # (Manual) POC ABG pH 7.182 L POC ABG pCO2 74.8 H POC ABG pO2 64 L Sodium 152 H Potassium 3.2 L Chloride 109.7 H Carbon Dioxide BUN Creatinine Glucose 316 H POC Glucose Lactic Acid Calcium 7.7 L Phosphorus 4.70 H Magnesium 3.90 H AST 169 H Total Creatine Kinase Total Protein 4.3 L D Albumin 1.4 L Urine WBC (Auto) Vancomycin Trough Crossmatch 03/15/18 03/15/18 03/15/18 10:30 12:22 14:49 WBC RBC Hgb Hct MCV MCH RDW Plt Count Seg Neuts % (Manual) Lymphocytes % (Manual) Nucleated RBC % Lymphocytes # (Manual) POC ABG pH 7.008 L POC ABG pCO2 68.0 H POC ABG pO2 51 L Sodium Potassium Chloride Carbon Dioxide BUN Creatinine Glucose POC Glucose 179 H Lactic Acid Calcium Phosphorus Magnesium AST Total Creatine Kinase Total Protein Albumin Urine WBC (Auto) Vancomycin Trough Crossmatch See Detail 03/15/18 03/15/18 03/15/18 18:15 22:55 23:00 WBC RBC Hgb 9.4 L D Hct 28.9 L D MCV 77 L MCH 25 L RDW 17.8 H Plt Count 37 L Seg Neuts % (Manual) Lymphocytes % (Manual) Nucleated RBC % Lymphocytes # (Manual) POC ABG pH 7.140 L POC ABG pCO2 61.0 H POC ABG pO2 60 L Sodium Potassium Chloride Carbon Dioxide BUN Creatinine Glucose POC Glucose 225 H Lactic Acid Calcium Phosphorus Magnesium AST Total Creatine Kinase Total Protein Albumin Urine WBC (Auto) Vancomycin Trough Crossmatch 03/15/18 03/15/18 03/16/18 23:00 23:31 00:30 WBC RBC Hgb Hct MCV MCH RDW Plt Count Seg Neuts % (Manual) Lymphocytes % (Manual) Nucleated RBC % Lymphocytes # (Manual) POC ABG pH POC ABG pCO2 POC ABG pO2 Sodium 148 H Potassium Chloride 110.2 H Carbon Dioxide BUN 30 H Creatinine Glucose 355 H POC Glucose 368 H Lactic Acid Calcium 6.8 L Phosphorus Magnesium AST Total Creatine Kinase Total Protein Albumin Urine WBC (Auto) Vancomycin Trough 23.7 H Crossmatch 03/16/18 03/16/18 03/16/18 03:00 03:00 05:09 WBC RBC 3.55 L Hgb 8.8 L Hct 27.3 L MCV 77 L MCH 25 L RDW 18.0 H Plt Count 24 L Seg Neuts % (Manual) Lymphocytes % (Manual) Nucleated RBC % Lymphocytes # (Manual) POC ABG pH 7.200 L POC ABG pCO2 61.0 H POC ABG pO2 65 L Sodium Potassium Chloride 107.2 H Carbon Dioxide BUN 30 H Creatinine 1.3 H Glucose 377 H POC Glucose Lactic Acid Calcium 6.3 L Phosphorus Magnesium AST Total Creatine Kinase Total Protein Albumin Urine WBC (Auto) Vancomycin Trough Crossmatch 03/16/18 03/16/18 03/16/18 05:52 11:54 17:28 WBC RBC Hgb Hct MCV MCH RDW Plt Count Seg Neuts % (Manual) Lymphocytes % (Manual) Nucleated RBC % Lymphocytes # (Manual) POC ABG pH POC ABG pCO2 POC ABG pO2 Sodium Potassium Chloride Carbon Dioxide BUN Creatinine Glucose POC Glucose 366 H 296 H 222 H Lactic Acid Calcium Phosphorus Magnesium AST Total Creatine Kinase Total Protein Albumin Urine WBC (Auto) Vancomycin Trough Crossmatch 03/17/18 03/17/18 03/17/18 01:08 04:32 04:32 WBC RBC 3.58 L Hgb 9.0 L Hct 27.0 L MCV 76 L MCH 25 L RDW 18.5 H Plt Count 30 L Seg Neuts % (Manual) Lymphocytes % (Manual) Nucleated RBC % Lymphocytes # (Manual) POC ABG pH POC ABG pCO2 POC ABG pO2 Sodium Potassium 3.5 L Chloride Carbon Dioxide BUN 40 H Creatinine 2.1 H D Glucose 137 H POC Glucose 140 H Lactic Acid Calcium 6.6 L Phosphorus Magnesium AST Total Creatine Kinase Total Protein Albumin Urine WBC (Auto) Vancomycin Trough Crossmatch 03/17/18 03/17/18 03/17/18 05:34 06:01 12:17 WBC RBC Hgb Hct MCV MCH RDW Plt Count Seg Neuts % (Manual) Lymphocytes % (Manual) Nucleated RBC % Lymphocytes # (Manual) POC ABG pH 7.224 L POC ABG pCO2 69.4 H POC ABG pO2 Sodium Potassium Chloride Carbon Dioxide BUN Creatinine Glucose POC Glucose 157 H 182 H Lactic Acid Calcium Phosphorus Magnesium AST Total Creatine Kinase Total Protein Albumin Urine WBC (Auto) Vancomycin Trough Crossmatch 03/17/18 03/17/18 03/18/18 18:10 22:50 03:56 WBC RBC 3.15 L Hgb 7.8 L Hct 23.7 L MCV 75 L MCH 25 L RDW 18.3 H Plt Count 16 L* Seg Neuts % (Manual) Lymphocytes % (Manual) Nucleated RBC % Lymphocytes # (Manual) POC ABG pH POC ABG pCO2 POC ABG pO2 Sodium Potassium Chloride Carbon Dioxide BUN Creatinine Glucose POC Glucose 142 H 162 H Lactic Acid Calcium Phosphorus Magnesium AST Total Creatine Kinase Total Protein Albumin Urine WBC (Auto) Vancomycin Trough Crossmatch 03/18/18 03/18/18 03/18/18 03:56 04:27 05:12 WBC RBC Hgb Hct MCV MCH RDW Plt Count Seg Neuts % (Manual) Lymphocytes % (Manual) Nucleated RBC % Lymphocytes # (Manual) POC ABG pH 7.316 L POC ABG pCO2 64.5 H POC ABG pO2 106 H Sodium Potassium 3.1 L Chloride 94.2 L Carbon Dioxide 32 H BUN 43 H Creatinine 2.5 H Glucose 115 H POC Glucose 134 H Lactic Acid Calcium 7.0 L Phosphorus Magnesium AST Total Creatine Kinase Total Protein Albumin Urine WBC (Auto) Vancomycin Trough Crossmatch 03/18/18 12:34 WBC RBC Hgb Hct MCV MCH RDW Plt Count Seg Neuts % (Manual) Lymphocytes % (Manual) Nucleated RBC % Lymphocytes # (Manual) POC ABG pH POC ABG pCO2 POC ABG pO2 Sodium Potassium Chloride Carbon Dioxide BUN Creatinine Glucose POC Glucose 116 H Lactic Acid Calcium Phosphorus Magnesium AST Total Creatine Kinase Total Protein Albumin Urine WBC (Auto) Vancomycin Trough Crossmatch Chest x-ray: image reviewed (persistent basilar predominant infiltrates) Allied health notes reviewed: nursing
[2018-03-18] MEDS ORDERED: NACL 0.9% 500 ML 500 ML ONE (13:17)
[2018-03-18] MEDS ORDERED: ATROPINE 0.1% (CARDIAC) ONE (18:33)
[2018-03-18 19:03] VITALS: BP 81/46
[2018-03-18] MEDS ORDERED: ADRENALIN ONE (19:20)
--- NOTE | 2018-03-23 09:00 | XRay Report ---
Portable chest: Respiratory failure followup. There is a severe diffuse pulmonary bronchovascular opacification in the right hemithorax with a mild diffuse degree of bronchovascular opacification in the left hemithorax. Compared to the prior exam of March 17 the findings appear slightly improved on the left with possible worsening on the right. Endotracheal and left PICC line remain unchanged and good positions. Impression: Extensive bilateral pulmonary infiltrates as detailed above.
--- NOTE | 2018-04-13 14:36 | Death Summary ---
Summary - Providers Date of service: 03/18/18 Consults: 03/13/18 12:37 Consult to PICC Line RN [CONS] Routine Reason For Exam: vasopressor administration Type Line:: PICC 03/15/18 11:25 Consult to Physician [CONS] Urgent Comment: Consulting Provider: ARIE STEVE Physician Instructions: Reason For Exam: Severe sepsis with shock 03/16/18 10:38 Consult to Physician [CONS] Routine Comment: Consulting Provider: DONOVAN CAMPOS Physician Instructions: Reason For Exam: Anoxic encephalopathy, post cardiac arrest X 3 03/11/18 16:06 Consult to Dietitian/Nutrition [CONS] Routine Physician Instructions: Assess nutrtn needs, initiate, modify, manage TF Reason For Exam: Reason for Consult: Write/Manage Tube Feeding Reason for Consult: Write/Manage Tube Feeding 03/11/18 16:28 Consult to Physician [CONS] Routine Comment: Dr. Peterson notified via Dr. Giordano Consulting Provider: JORGE ALBERTO GIORDANO Physician Instructions: Reason For Exam: septic shock 03/12/18 16:00 Consult to Dietitian/Nutrition [CONS] Routine Physician Instructions: Assess nutrtn needs, initiate, modify, manage TF Reason For Exam: Reason for Consult: Write/Manage Tube Feeding Reason for Consult: Write/Manage Tube Feeding 03/12/18 19:18 Consult to Dietitian/Nutrition [CONS] Routine Physician Instructions: Reason For Exam: Reason for Consult: Evaluate nutritional intake Attending: WALLACE DELUCA - summary Date of admission: 03/11/18 16:03 Date of : 03/18/18 Procedures/treatments rendered: Patient is 57 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 She presented to ED because she was found to have chills and had a temperature of 105.0. She was therefore brought to ED, seen and evaluated in ED and found to have Severe Sepsis , acute Respiratory Failure, metabolic acidosis and toxic metabolic encephalopathy. Patient also diagnosed with bilateral pneumonia. Patient was put on BIPAP and admitted to ICU. She was evaluated by [facility] Service Delivery Manager, ID Physician specialist. Antibiotics include Cefepime, vancomycin iv. She became worse was intubated and put on mechanical ventilator on 03/14/18. On morning of 03/15/18 , she had cardiac arrest X 3. Code Blue run per protocol and she was resuscitated all three times. She continued to deteriorate, was hypotensive, started on Levophed. BP not adequate and eventually put on 4 pressors - Levophed, Epinephrine, Vasopressin and Dopamine. Discussions were held with family and they wanted to maintain Full code status. However she had another cardiac arrest on 03/18/18. Resuscitation efforts were futile and she 03/18/18 at 18:39. Main diagnosis Severe sepsis with septic shock due to bilateral pneumonia. Total time spent on discharge, 45 mins - Final diagnosis (1) UTI (urinary tract infection) Note: Final diagnosis: (2) Patient in hospital Note: Final diagnosis: (3) Cardiopulmonary arrest Note: Final diagnosis: (4) Acute respiratory failure Note: Final diagnosis: (5) Diabetes mellitus Note: Final diagnosis: (6) Sepsis Qualifiers: Sepsis type: sepsis due to unspecified organism Qualified Code(s): A41.9 - Sepsis, unspecified organism Note: Final diagnosis: (7) Septic shock Note: Final diagnosis: (8) ATN (acute tubular necrosis) Note: Final diagnosis: (9) Hypokalemia Note: Final diagnosis: (10) Toxic metabolic encephalopathy Note: Final diagnosis: (11) Toxic metabolic encephalopathy Note: Final diagnosis: (12) Anoxic encephalopathy Note: Final diagnosis: (13) Bilateral pneumonia Note: Final diagnosis:
== END 2018-03-18 19:25 | DRG 698 ==
LOC: ED 13:02 → CC1 16:03
PROVIDERS: ADMIT Internal Medicine; ATTEND Internal Medicine
PROC: 02HV33Z Insertion of Infusion Device into Superior Vena Cava, Percutaneous Approach (ICD-10-PCS; 2018-03-11)
PROC: 4A033R1 Measurement of Arterial Saturation, Peripheral, Percutaneous Approach (ICD-10-PCS; 2018-03-11)
PROC: 5A09357 Assistance with Respiratory Ventilation, Less than 24 Consecutive Hours, Continuous Positive Airway Pressure (ICD-10-PCS; 2018-03-11)
PROC: 5A1955Z Respiratory Ventilation, Greater than 96 Consecutive Hours (ICD-10-PCS; principal; 2018-03-12)
PROC: 0BH17EZ Insertion of Endotracheal Airway into Trachea, Via Natural or Artificial Opening (ICD-10-PCS; 2018-03-12)
PROC: 04HK33Z Insertion of Infusion Device into Right Femoral Artery, Percutaneous Approach (ICD-10-PCS; 2018-03-15)
PROC: B44LZZZ Ultrasonography of Femoral Artery (ICD-10-PCS; 2018-03-15)
PROC: 30233R1 Transfusion of Nonautologous Platelets into Peripheral Vein, Percutaneous Approach (ICD-10-PCS; 2018-03-15)
PROC: 5A12012 Performance of Cardiac Output, Single, Manual (ICD-10-PCS; 2018-03-15)
PROC: 30233N1 Transfusion of Nonautologous Red Blood Cells into Peripheral Vein, Percutaneous Approach (ICD-10-PCS; 2018-03-18)
DX: T83.511A Infection and inflammatory reaction due to indwelling urethral catheter, initial encounter (principal); A41.9 Sepsis, unspecified organism; R65.21 Severe sepsis with septic shock; J96.01 Acute respiratory failure with hypoxia; G92 Toxic encephalopathy; N17.0 Acute kidney failure with tubular necrosis; J18.9 Pneumonia, unspecified organism; E43 Unspecified severe protein-calorie malnutrition; E11.10 Type 2 diabetes mellitus with ketoacidosis without coma; E87.0 Hyperosmolality and hypernatremia; N39.0 Urinary tract infection, site not specified; D69.6 Thrombocytopenia, unspecified; I46.9 Cardiac arrest, cause unspecified; E87.6 Hypokalemia; E83.42 Hypomagnesemia; I95.9 Hypotension, unspecified; I10 Essential (primary) hypertension; F20.9 Schizophrenia, unspecified; G40.909 Epilepsy, unspecified, not intractable, without status epilepticus; Y84.6 Urinary catheterization as the cause of abnormal reaction of the patient, or of later complication, without mention of misadventure at the time of the procedure; R13.12 Dysphagia, oropharyngeal phase; Y92.89 Other specified places as the place of occurrence of the external cause; Z68.27 Body mass index [BMI] 27.0-27.9, adult; Z93.1 Gastrostomy status; Z82.49 Family history of ischemic heart disease and other diseases of the circulatory system; Z91.018 Allergy to other foods
CPT/HCPCS: 36415; 36600; 71045; 71250; 76770; 80048; 80053; 80202; 81001; 82140; 82550; 82803; 82962; 83735; 84100; 85007; 85025; 85027; 85730; 86850; 86900; 86901; 86920; 87040; 87070; 87076; 87086; 87186; 87205; 93005; 93010; 93306; 94002; 94003; 94640; 94660; 94760; 95819; 96365; 96366; 96367; G0378; J0171; J0330; J0461; J0692; J1265; J1815; J1956; J2250; J2704; J3010; J3370; J3475; J3480; J7030; J7040; J7042; J7050; J7060; J7070; P9016; P9035